=== PATIENT | female | born 1970 | race Caucasian/White ===

== ENCOUNTER 2020-01-03 16:08 | Outpatient (CLI) | payer OTHER, SELFPAY ==
--- NOTE | ~2020-01-03 | XR_ITS ---
EXAMINATION:XR_CERV2-3V_CR DATE: 01/03/2020 16:54 INDICATION: Headache and neck pain TECHNIQUE: AP, lateral, lateral swimmers and odontoid views of the cervical spine are provided. COMPARISON: None FINDINGS: Alignment is normal. The odontoid is intact. No fracture is identified. The vertebral body heights are normal. There is moderate loss of intervertebral disc space height at C6-7 and mild loss of intervertebral disc space height at C5-6. Small degenerative osteophytes project from the anterior endplates of multiple vertebral bodies. Prevertebral soft tissues are normal. IMPRESSION: 1. Mild to moderate lower cervical spondylosis without acute findings. Reviewed, dictated and finalized at location A.
== END 2020-01-03 16:09 | disposition home or self-care (01) ==
LOC: ANHIMG 16:19
PROVIDERS: PCP Physician Assistant; Visit Provider Physician Assistant
DX: M54.2 Cervicalgia (principal)
CPT/HCPCS: 72040

== ENCOUNTER 2020-04-11 14:28 | Emergency (ER) | payer OTHER, SELFPAY ==
[2020-04-11 14:37] VITALS: BP 123/67; PULSE 66; RESP 16; TEMP 36.6; O2SAT 99
--- NOTE | 2020-04-11 14:43 | ED.EYEPROB ---
HPI - Eye Problem General Chief complaint: Eye Problems Stated complaint: left eye redness/swollen Time Seen by Provider: 04/11/20 14:47 Source: patient and RN notes reviewed Mode of arrival: ambulatory Limitations: no limitations History of Present Illness HPI Narrative: 49-year-old female presents with concern for swelling, redness under her left eye. Reports she called her doctor yesterday who called her in a prescription for antibiotic eyedrops. Reports she started using those at 4:00 yesterday. Reports symptoms have not improved. Reports symptoms started on morning. She denies vision changes, drainage from the eye. Reports she has been using a cool washcloth. chief complaint: eye pain Related Data Home Medications Medication Instructions Recorded Confirmed bupropion HCl 300 mg PO DAILY 04/11/20 04/11/20 ciprofloxacin HCl See Rx Instructions .ROUTE .COMPLEX 04/11/20 04/11/20 duloxetine 60 mg PO DAILY 04/11/20 04/11/20 guanfacine 1 mg DAILY 04/11/20 04/11/20 levothyroxine [Euthyrox] 125 mcg DAILY 04/11/20 04/11/20 trazodone 150 mg HS 04/11/20 04/11/20 Allergies Allergy/AdvReac Type Severity Reaction Status Date / Time NSAIDS (Non-Steroidal AdvReac Mild Other Verified 04/11/20 14:34 Anti-Inflamma Review of Systems Review of Systems: Narrative: CONSTITUTIONAL: Denies malaise, chills, sweats, or fever. EYES: Denies visual changes, redness, or discharge. ENT: Denies rhinorrhea, congestion, sinus pain, otalgia or sore throat. SKIN: Reports red, swollen, tender area beneath the left eye MUSCULOSKELETAL: Denies myalgia. NEUROLOGIC: Denies headache. All systems reviewed & are unremarkable except as noted in HPI and below PMFSH Social History Social History Gender identity (if verbalized by the patient): Female Comments At time of signature, agree with nursing past medical, surgical, social and family history. There is no relevant family history pertinent to the presenting complaint Exam Narrative: Exam Narrative: GENERAL: Well-appearing, well-nourished, and in no acute distress. HEAD: Normocephalic, atraumatic. EYES: PERRLA, conjunctivae clear, sclera clear, and EOMI. No nystagmus. ENT: Nares clear. Mucous membranes moist. NECK: Supple. CHEST: No respiratory distress. Speaks in full sentences. HEART: Regular rate and rhythm. SKIN: Warm, dry. Skin beneath left eye erythematous, mildly edematous consistent with cellulitis, superficial NEURO: Alert and oriented x3. PSYCH: Normal mood and affect Course Course Emergency Course: Instructed patient to follow-up with brake reliner if symptoms have not improved by Monday. Patient is aware of diagnosis, understands and agrees to treatment plan. Anticipatory guidance given. Patient agrees to follow-up as directed and is aware of reasons to seek care at the emergency department. Portions of this record may have been created with voice recognition software Vital Signs Vital signs: Vital Signs Temperature 97.9 F 04/11/20 14:37 Pulse Rate 66 04/11/20 14:37 Respiratory Rate 16 04/11/20 14:37 Blood Pressure 123/67 04/11/20 14:37 Pulse Oximetry 99 04/11/20 14:37 Temperature 97.9 F 04/11/20 14:37 Pulse Rate 66 04/11/20 14:37 Respiratory Rate 16 04/11/20 14:37 Blood Pressure 123/67 04/11/20 14:37 Pulse Oximetry 99 04/11/20 14:37 Reviewed. MDM - Eye Problem MDM Narrative Medical decision making narrative: Consideration of the following conditions may be warranted for the presenting problem, they are not final diagnoses: Bacterial conjunctivitis, allergic conjunctivitis, viral conjunctivitis, foreign body, blepharitis, chalazion, hordeolum, corneal abrasion, cellulitis. Exam findings show no acute concerns or changes; patient is non-toxic appearing and is in no distress. Patient is appropriate for outpatient treatment and follow-up. Critical Care Time Critical Care Time Critical Care Time: No Discharge
== END 2020-04-11 15:02 | disposition home or self-care (01) ==
PROVIDERS: Emergency Provider Nurse Practitioner; PCP Physician Assistant
DX: L03.211 Cellulitis of face (principal); E03.9 Hypothyroidism, unspecified; F32.9 Major depressive disorder, single episode, unspecified
CPT/HCPCS: 99213; G0463

== ENCOUNTER 2021-02-18 10:36 | Outpatient (CLI) | payer BC, MEDICAID, SELFPAY ==
--- NOTE | 2021-02-18 | ECHO_ITS ---
Patient Info Name: Maru Lee Age: 50 years : 1970 Gender: Female Ht: 61 in Wt: 175 lbs BSA: 1.88 m2 HR: 80 bpm BP: 123 / 75 mmHg Heart Rhythm: Sinus Rhythm Technical Quality: Good Exam Date: 02/18/2021 11:14 AM Exam Location: [facility] Patient Status: Outpatient Admit Date: 02/18/2021 Staff Ordering Physician: Randall, Candi ROSALES Mirror Polisher: Juana Wan RDCS Attending Provider: RandallCandi Referring Physician: Randall SALAMANCA; Exam Type: CA echo doppler color flow Study Info Indications - CISNEROS Complete two-dimensional, color flow and Doppler transthoracic echocardiogram is performed. Summary 1. Complete two-dimensional, color flow and Doppler transthoracic echocardiogram is performed. 2. Normal left ventricular size and thickness. There is mild global hypokinesis present, estimated ejection fraction 50%. Diastolic dysfunction grade 2 is present. No segmental wall motion abnormalities. 3. No significant valve disease. 4. Left atrial chamber dimension is mildly enlarged. 5. Normal sinus rhythm. Left Ventricle Left ventricular chamber dimension is normal. Left ventricular systolic function is mildly reduced, estimated at 45-50%. There is no increased left ventricular wall thickness. Left ventricular septal wall motion is normal. The left ventricular diastolic function is grade II diastolic dysfunction. Right Ventricle Right ventricular chamber dimension is normal. Right ventricular systolic function is normal. Left Atria Left atrial chamber dimension is mildly enlarged. Right Atria Right atrial chamber dimension is normal. Aortic Valve The aortic valve is trileaflet. There is no aortic valve sclerosis. There is no aortic valve stenosis. There is no aortic valve regurgitation. Pulmonic Valve The pulmonic valve is normal. There is no pulmonic valve stenosis. There is no pulmonic regurgitation. Mitral Valve The mitral valve has normal leaflets. There is no mitral valve stenosis. There is trace mitral valve regurgitation. Tricuspid Valve The tricuspid valve leaflets are normal. There is no significant tricuspid valve stenosis. There is trace tricuspid valve regurgitation. No pulmonary hypertension, estimated pulmonary arterial systolic pressure is Empty. Pericardium/Pleural The pericardium appears normal. There is no pericardial effusion. Inferior Vena Cava Normal inferior vena cava with >50% collapse upon inspiration consistent with Empty right atrial pressure, Empty. Aorta The aortic root size at the sinus of Valsalva is normal. The prox ascending aorta size is normal. Left Ventricular Outflow Tract Name Value Normal LVOT 2D LVOT Diameter 2.0 cm LVOT Doppler LVOT Peak Gradient 4 mmHg LVOT Mean Gradient 2 mmHg LVOT VTI 23 cm LVOT VTI/AV VTI Ratio 0.7 LVOT Stroke Volume 68 ml LVOT CO 5.5 l/min LVOT CI
== END 2021-02-18 10:37 | disposition home or self-care (01) ==
PROVIDERS: PCP Physician Assistant; Visit Provider Physician Assistant
DX: R06.00 Dyspnea, unspecified (principal)
CPT/HCPCS: 93306

== ENCOUNTER 2021-02-22 15:28 | Emergency (ER) | payer BC, MEDICAID, SELFPAY ==
--- NOTE | ~2021-02-22 | XR_ITS ---
EXAMINATION: XR chest 1V portable EXAM DATE: 02/22/2021 21:32 INDICATION: Right upper chest pain started today. TECHNIQUE: Portable AP frontal chest x-ray was obtained. Comparison is made to prior examination from 03/16/2016. FINDINGS: The lungs are clear. There are no pleural effusions. The cardiomediastinal silhouette is within normal limits. There is no pneumothorax suspected. There are cholecystectomy clips. There ar e mild bony degenerative changes. IMPRESSION: No acute cardiopulmonary findings. Reviewed, dictated and finalized at location A.
[2021-02-22 16:04] VITALS: BP 114/53; PULSE 80; RESP 16; TEMP 36.9; O2SAT 100
[2021-02-22 16:29] LABS: Basophils Percent Auto 0.6 % (0.2-1.2); Eosinophils Absolute Auto 0.3 K/mm3 (0-0.3); Eosinophils Percent Auto 4.1 % (0-4.4); Hematocrit 36.8 % (37.0-47.0); Hemoglobin 12.2 g/dL (12.0-15.0); Immature Granulocyte Absolute 0.01 K/mm3 (0.00-0.031); Immature Granulocyte Percent A 0.1 % (0-0.5); Lymphocytes Absolute Auto 2.37 K/mm3 (0.9-3.2); Lymphocytes Percent Auto 34.3 % (18.3-44.2); Mean Corpuscular HGB Conc 33.2 g/dl (32-36); Mean Corpuscular Hemoglobin 30.3 pg (26-34); Mean Corpuscular Volume 91.5 fl (80-100); Mean Platelet Volume 9.7 fl (7.4-10.4); Monocytes Absolute Auto 0.5 K/mm3 (0.1-0.6); Monocytes Percent Auto 7.4 % (2.6-8.5); Neutrophils Absolute Auto 3.7 K/mm3 (1.3-6.7); Neutrophils Percent Auto 53.5 % (45.5-73.1); Platelet Count Result 246 k/mm3 (150-375); Red Blood Count 4.02 M/mm3 (4.2-5.4); Red Cell Distribution Width 13.6 % (11.5-14.5); White Blood Count 6.9 K/mm3 (4.5-10.0)
[2021-02-22 16:32] LABS: Add Urine Microscopic? YES; Appearance Urine Clear (Clear); Bilirubin Urine Negative (Negative); Blood Urine Negative (Negative); Color Urine Yellow (Yellow); Glucose Urine UA Negative (Negative); Ketones Urine Negative (Negative); Leukocyte Esterase Ur Negative LEU/UL (Negative); Mucus Urine Rare /lpf; Nitrate Urine Negative (Negative); Protein Urine Negative (Negative); RBC Urine 0-2 /hpf (0-2); Specific Grav Ur 1.024 (1.001-1.035); Squamous Epithelial Cell Urine Rare /hpf (Few); WBC Urine 0-3 /hpf
[2021-02-22 16:40] LABS: Alanine Aminotransferase 16 U/L (4-35); Albumin Level 4.2 g/dL (3.5-5.1); Alkaline Phosphatase 67 U/L (38-126); Anion Gap 9 mmol/L (8-16); Aspartate Amino Transferase 26 U/L (14-36); Bilirubin,Total 0.3 mg/dL (0.2-1.3); Blood Urea Nitrogen 9 mg/dL (7-17); Carbon Dioxide 21 mmol/L (22-30); Chloride 110 mmol/L (98-107); Estimated CRCL calculation 51 ml/min; Estimated Glomerular Filt Rate 52; Glucose 104 mg/dL (65-105); Lipase 104 U/L (23-300); Potassium 3.8 mmol/L (3.4-5.0); Sodium 140 mmol/L (137-145)
[2021-02-22 20:39] VITALS: BP 115/41; PULSE 74; O2SAT 100
--- NOTE | 2021-02-22 20:54 | ED.GENADULT ---
HPI - General Adult General Chief complaint: Unspecified Stated complaint: MULTIPLE C/O Time Seen by Provider: 02/22/21 20:31 Source: patient and RN notes reviewed Mode of arrival: ambulatory Limitations: no limitations History of Present Illness HPI narrative: Patient is 50 years old white female presents with multiple symptoms including intermittent headache, trouble sleeping, right upper quadrant sharp pain, diarrhea, general fatigue and weakness, going through divorce, gaining weight over the last few months, intermittent itching all over her body. Patient denies any fever, chills, nausea, vomiting, chest pain, back pain or rash. Related Data Home Medications Medication Instructions Recorded Confirmed bupropion HCl 300 mg PO DAILY 04/11/20 04/11/20 ciprofloxacin HCl See Rx Instructions .ROUTE .COMPLEX 04/11/20 04/11/20 duloxetine 60 mg PO DAILY 04/11/20 04/11/20 guanfacine 1 mg DAILY 04/11/20 04/11/20 levothyroxine [Euthyrox] 125 mcg DAILY 04/11/20 04/11/20 trazodone 150 mg HS 04/11/20 04/11/20 Allergies Allergy/AdvReac Type Severity Reaction Status Date / Time NSAIDS (Non-Steroidal AdvReac Mild Other Verified 04/11/20 14:34 Anti-Inflamma Review of Systems Review of Systems: Narrative: CONSTITUTIONAL: Denies fever, chills, or sweats. EYES: Denies visual changes, redness, or discharge. ENT: Denies rhinorrhea, congestion, sore throat, or otalgia. CARDIOVASCULAR: Denies chest pain, palpitations, or edema. RESPIRATORY: Denies cough or dyspnea. GASTROINTESTINAL: Denies abdominal pain, nausea, vomiting, or diarrhea. GENITOURINARY: Denies dysuria or hematuria. SKIN: Denies rash or itching. MUSCULOSKELETAL: Denies back pain, joint pain, or myalgia. NEUROLOGIC: Denies headache, numbness, or weakness. PSYCHIATRIC: Denies anxiety or depression. PMFSH Social History Social History Gender identity (if verbalized by the patient): Female Exam Narrative: Exam Narrative: General appearance: Well-developed, well-nourished, talkative, does not look in pain or distress Skin: Normal color Head: Normocephalic, nontraumatic Eyes: Clear conjunctiva ENT: Oropharynx normal, ears normal, nose normal Neck: Supple, nontender Chest and respiratory: Airway patent, no respiratory distress, no accessory muscle use Heart: Regular rate/rhythm Abdomen: Soft, nontender, no organomegaly, quiet bowel sounds Vascular: Normal peripheral pulses, normal capillary refill. Musculoskeletal: Normal range of motion, nontender back Neurologic: Alert and oriented ?3, [employer] is normal as tested, no gross motor deficit Course Course Emergency Course: Stable Vital Signs Vital signs: Vital Signs Temperature 36.9 C 02/22/21 16:04 Pulse Rate 80 02/22/21 16:04 Respiratory Rate 16 02/22/21 16:04 Blood Pressure 114/53 L 02/22/21 16:04 Pulse Oximetry 100 02/22/21 16:04 Temperature 36.9 C 02/22/21 16:04 Pulse Rate 74 02/22/21 20:39 Respiratory Rate 16 02/22/21 16:04 Blood Pressure 115/41 L 02/22/21 20:39 Pulse Oximetry 100 02/22/21 20:39 Medical Decision Making [facility] Narrative Medical decision making narrative: Anxiety, depression related symptoms is my concern. Labs, chest x-ray, UA ordered. Further plan to follow Differential Diagnosis Differential Diagnosis: Anxiety, depression, electrolyte imbalance, musculoskeletal pain, gastroenteritis, electrolyte imbalance Vital Signs Vital Signs: Vital Signs Temperature 36.9 C 02/22/21 16:04 Pulse Rate 80 02/22/21 16:04 Respiratory Rate 16 02/22/21 16:04 Blood Pressure 114/53 L 02/22/21 16:04 Pulse Oximetry 100 02/22/21 16:04
== END 2021-02-22 22:48 | disposition home or self-care (01) ==
PROVIDERS: Emergency Medicine; Emergency Provider Emergency Medicine; PCP Physician Assistant
DX: E86.0 Dehydration (principal); R53.1 Weakness; F41.9 Anxiety disorder, unspecified
CPT/HCPCS: 36415; 71045; 80053; 81001; 81025; 83690; 85025; 99283

== ENCOUNTER 2021-03-16 09:47 | Outpatient (CLI) | payer BC, MEDICAID, SELFPAY ==
--- NOTE | ~2021-03-16 | MM_ITS ---
EXAMINATION: MM screening cali BI w andrew HISTORY: Screening TECHNIQUE: Craniocaudal and mediolateral oblique 3-D tomosynthesis images were obtained and synthetic 2-D images were generated. CAD analysis was submitted and interpreted. COMPARISON: No prior mammogram is available for comparison at this institution. BREAST PARENCHYMAL COMPOSITION: There are scattered areas of fibroglandular density. FINDINGS: There is no evidence of suspicious mass, calcification, or architectural distortion to sugg est malignancy in either breast. There has been no suspicious interval change. IMPRESSION: 1. No mammographic evidence of malignancy. 2. Recommend routine screening mammography in one year. BI-RADS Category 1: Negative Reviewed, dictated and finalized at location A.
== END 2021-03-16 09:48 | disposition home or self-care (01) ==
LOC: ANHIMG 09:48
PROVIDERS: PCP Physician Assistant; Visit Provider Physician Assistant
DX: Z12.31 Encounter for screening mammogram for malignant neoplasm of breast (principal)
CPT/HCPCS: 77063; 77067

== ENCOUNTER 2021-04-29 10:42 | Outpatient (CLI) | payer BC, MEDICAID, SELFPAY ==
--- NOTE | ~2021-04-29 | NM_ITS ---
EXAMINATION: NM aníbal stress w perfusion DATE: 04/29/2021 12:58 INDICATION: Chest pain TECHNIQUE: Rest images were obtained following intravenous administration of 8.0 mCi Tc99m tetrofosmi n (Myoview). The patient was infused intravenously with Lexiscan (Regadenoson). Then, 26.8 mCi Tc99m tetrofosmin (Myoview) was administered intravenously, and stress images were obtained. Data was recon structed into short axis and horizontal and vertical long axis SPECT images. Gated SPECT images were also obtained. COMPARISON: None. FINDINGS: Small mild reversible perfusion defect consistent with ischemia at the apical and anteroapi aysha segments.. There is normal left ventricular chamber size, wall motion and ejection fraction. Le ft ventricular ejection fraction measures 61%. IMPRESSION: 1. Small mild reversible perfusion defect consistent with ischemia at the anterior and anteroseptal s egments. 2. Left ventricular ejection fraction measuring 61%. Reviewed, dictated and finalized at location A. IMPRESSION: 1. Small mild reversible perfusion defect consistent with ischemia at the anter ior and anteroseptal segments. 2. Left ventricular ejection fraction measuring 61%.
--- NOTE | 2021-04-29 10:27 | EST_ITS ---
Patient Info Name: Maru Lee Age: 50 years : 1970 Gender: Female Ht: 61 in Wt: 170 lbs BSA: 1.85 m2 Exam Date: 04/29/2021 11:47 AM Exam Location: [facility] Stress Patient Status: Outpatient Admit Date: 04/29/2021 Staff Ordering Physician: Tom Mireles DO Attending Provider: Tom Mireles DO Exercise Technologist: Sneha Daniel RDCS Exercise Physician: Tom Mireles DO Exam Type: CA stress aníbal w NM Study Info Indications R07.9 - Chest pain, unspecified A regadenoson stress test was performed. Summary 1. 1. Negative lexiscan stress test for ischemic ST changes by ECG criteria. 2. 2. Stable hemodynamics throughout the test. 3. 3. Nuclear scan to follow and will be reported separately. Please correlate with it. 4. 4. Patient informed of the above results. Protocol: Lexiscan Stress ECG Details Stage: REST Duration (min): 1 min : 27 sec HR (bpm): 71 SBP (mmHg): 100 DBP (mmHg): 73 Stage: REST Duration (min): 4 min : 10 sec HR (bpm): 69 SBP (mmHg): 100 DBP (mmHg): 73 Stage: STAGE 1 Duration (min): 1 min : 0 sec HR (bpm): 85 SBP (mmHg): 114 DBP (mmHg): 83 Stage: RECOVERY Duration (min): 1 min : 0 sec HR (bpm): 91 SBP (mmHg): 111 DBP (mmHg): 75 Stage: RECOVERY Duration (min): 2 min : 0 sec HR (bpm): 89 SBP (mmHg): 111 DBP (mmHg): 75 Stage: RECOVERY Duration (min): 3 min : 0 sec HR (bpm): 96 SBP (mmHg): 109 DBP (mmHg): 71 Stage: RECOVERY Duration (min): 3 min : 11 sec HR (bpm): 92 SBP (mmHg): 109 DBP (mmHg): 71 Rest HR: 69 bpm Peak HR: 96 bpm Rest Sys BP: 100 mmHg Peak Sys BP: 114 mmHg Max Pred HR: 168 bpm % Max Pred HR: 57 % Target HR: 143 bpm Max RPP: 10,944 bpm*mmHg Termination Reason: Completed protocol Cardiac Symptoms: SOB, Headache, stomach discomfort Total Time: 1 min : 0 sec Rest Leon BP: 73 mmHg Peak Leon BP: 83 mmHg Total Dose: 0.4 mg Resting ECG Sinus rhythm. Stress ECG No ST changes. Arrhythmias None. Report Signatures
== END 2021-04-29 10:43 | disposition home or self-care (01) ==
PROVIDERS: PCP Physician Assistant; Visit Provider Internal Medicine Cardiovascular Disease
DX: R07.9 Chest pain, unspecified (principal)
CPT/HCPCS: 78452; 93017; A9502; J2785

== ENCOUNTER 2021-05-07 09:35 | Outpatient (CLI) | payer BC, MEDICAID, SELFPAY ==
--- NOTE | ~2021-05-07 | MR_ITS ---
EXAMINATION: MR cervical spine wo con EXAM DATE: 05/07/2021 10:30 INDICATION: Cervicalgia, neck pain, bilateral shoulder pain. TECHNIQUE: Multi-sequential, multiplanar MR images of the cervical spine were obtained without contra st. Axial T2, axial T2 MERGE sequence. Sagittal T1, T2, T2 fat saturation images also obtained. Th ere is no prior study for comparison. FINDINGS: There is moderate disc disease at C5-6 and 6-7. The vertebral bodies are aligned in the AP dimension. The spinal cord signal intensity and intrinsic morphology is normal. Cervicomedullary yovana ction is normal in appearance. There are no suspicious marrow signal abnormalities. Paraspinal soft t issue is unremarkable. Level by level evaluation: C2-C3: Disc does not extend beyond the endplate margin. Uncovertebral joint arthropathy: None. Facet joint arthropathy: Mild bilateral. Neural foraminal stenosis: No stenosis. Central canal stenosis: No stenosis. C3-C4: There is a mild diffuse disc bulge. Uncovertebral joint arthropathy: Moderate right, mild to moderate left. Facet joint arthropathy: Mild to moderate bilateral. Neural foraminal stenosis: Moderate right, mild to moderate left. Central canal stenosis: No stenosis. C4-C5: Disc does not extend beyond the endplate margin. Uncovertebral joint arthropathy: Moderate right, mild to moderate left. Facet joint arthropathy: Mild to moderate bilateral. Neural foraminal stenosis: Mild bilateral. Central canal stenosis: No stenosis. C5-C6: There is a mild diffuse disc bulge asymmetric to the right Uncovertebral joint arthropathy: Moderate to severe right, moderate left. Facet joint arthropathy: Mild bilateral. Neural foraminal stenosis: Moderate bilateral. Central canal stenosis: Mild. C6-C7: There is a mild diffuse disc bulge. Uncovertebral joint arthropathy: Mild to moderate bilateral. Facet joint arthropathy: Mild to moderate bilateral. Neural foraminal stenosis: Mild to moderate bilateral. Central canal stenosis: Mild. C7-T1: Disc does not extend beyond the endplate margin. Uncovertebral joint arthropathy: Mild bilateral. Facet joint arthropathy: Mild bilateral. Neural foraminal stenosis: No stenosis. Central canal stenosis: No stenosis. IMPRESSION: 1. Moderate lower cervical predominant spondylosis. Reviewed, dictated and finalized at location B.
== END 2021-05-07 09:36 ==
PROVIDERS: PCP Physician Assistant; Visit Provider Nurse Practitioner Family
DX: M47.892 Other spondylosis, cervical region (principal)
CPT/HCPCS: 72141

== ENCOUNTER 2021-08-20 02:54 | Day surgery (SDC) | payer BC, MEDICAID, SELFPAY ==
[2021-08-19 14:07] VITALS: BMI 32.1
[2021-08-20] VITALS (16 sets, daily range): BP systolic 92–115; BP diastolic 44–70; PULSE 68–83; RESP 14–24; TEMP 36.6; O2SAT 94–100; BMI 31.4
[2021-08-20 08:11] LABS: Basophils Absolute Auto 0.1 K/mm3 (0.0-0.1); Basophils Percent Auto 1.3 % (0.2-1.2); Eosinophils Absolute Auto 0.2 K/mm3 (0-0.3); Eosinophils Percent Auto 3.4 % (0-4.4); Hematocrit 42.8 % (37.0-47.0); Immature Granulocyte Absolute 0.03 K/mm3 (0.00-0.031); Immature Granulocyte Percent A 0.5 % (0-0.5); Lymphocytes Absolute Auto 1.21 K/mm3 (0.9-3.2); Lymphocytes Percent Auto 21.6 % (18.3-44.2); Mean Corpuscular HGB Conc 32.7 g/dl (32-36); Mean Corpuscular Volume 94.7 fl (80-100); Mean Platelet Volume 9.5 fl (7.4-10.4); Monocytes Absolute Auto 0.5 K/mm3 (0.1-0.6); Monocytes Percent Auto 8.2 % (2.6-8.5); Neutrophils Absolute Auto 3.6 K/mm3 (1.3-6.7); Platelet Count Result 271 k/mm3 (150-375); Red Blood Count 4.52 M/mm3 (4.2-5.4); Red Cell Distribution Width 12.6 % (11.5-14.5); White Blood Count 5.6 K/mm3 (4.5-10.0)
[2021-08-20 08:21] LABS: INR 0.9; Prothrombin Time 12.1 Seconds (11.1-14.7)
[2021-08-20 08:27] LABS: Anion Gap 7 mmol/L (8-16); Blood Urea Nitrogen 9 mg/dL (7-17); Calcium 9.5 mg/dL (8.4-10.2); Carbon Dioxide 26 mmol/L (22-30); Chloride 109 mmol/L (98-107); Estimated CRCL calculation 39 ml/min; Estimated Glomerular Filt Rate 39; Glucose 102 mg/dL (65-110); Potassium 3.9 mmol/L (3.4-5.0); Sodium 142 mmol/L (137-145)
--- NOTE | 2021-08-20 09:33 | WPDMODSED ---
Moderate Sedation Note-Pt Data Patient Data Diagnosis: Anomalous right coronary artery, catheterization as part of surgical consultation Present Complaint: Dizziness/lightheadedness, shortness of breath Procedure to be performed/Plan: Left heart catheterization Allergies Allergy/AdvReac Type Severity Reaction Status Date / Time NSAIDS (Non-Steroidal AdvReac Mild Other Verified 08/19/21 14:02 Anti-Inflamma Home Medications Medication Instructions Recorded Confirmed Type levothyroxine [Euthyrox] 125 mcg DAILY 04/11/20 08/19/21 History trazodone 150 mg HS 04/11/20 08/19/21 History bupropion HCl 300 mg 24 hr tablet, 450 mg PO DAILY tablet 06/09/21 08/19/21 History extended release duloxetine 60 mg capsule,delayed 80 mg PO DAILY cap 06/09/21 08/19/21 History release alprazolam 0.25 mg PO ONCE 08/19/21 08/19/21 History calcium carbonate-vitamin D2 1 tablet PO DAILY 08/19/21 08/19/21 History [Calcium + Vitamin D] topiramate [Topamax] 100 mg PO BID 08/19/21 08/19/21 History Current Medications: Active Medications Sodium Chloride (Normal Saline Iv) 500 mls @ 100 mls/hr IV CONT .Q5H [facility] Sedation/Anesthesia: No previous sedation/anesthesia problems (including family history). [facility] Social History Social History Smoking status: Never smoker Living arrangements: with family Gender identity (if verbalized by the patient): Female Mod Sed Physical Exam Physical Exam Pre Procedural Exam: Normal: Neck, Throat, Airway, Lungs, Heart Size, Heart Rate, Heart Rhythm, Neuro Exam and Extremities and Variation: Appearance (Overweight lady pleasant cooperative no distress) Hours since solid foods: 12 Hours since liquid intake: 12 Mallampati Classification: class II Internal Medicine - PN: Obj Da Vital Signs Vital Signs: Vital Signs - 24 hr 08/20/21 08:15 Temperature 36.6 C Pulse Rate 72 Respiratory Rate 16 Blood Pressure 115/60 Pulse Oximetry 97 Meds/Results Medications: Active Medications Generic Name Dose Route Start Last Admin Trade Name Freq PRN Reason Stop Dose Admin Sodium Chloride 500 mls @ 100 mls/hr 08/20/21 07:00 Normal Saline Iv IV CONT .Q5H [facility] Labs CBC & Chem 7: 08/20/21 07:50 08/20/21 07:50 Labs: Laboratory Results - last 24 hr 08/20/21 08/20/21 08/20/21 07:50 07:50 07:50 WBC 5.6 RBC 4.52 Hgb 14.0 Hct 42.8 MCV 94.7 MCH 31.0 MCHC 32.7 RDW 12.6 Plt Count 271 MPV 9.5 Immature Gran % (Auto) 0.5 Neut % (Auto) 65.0 Lymph % (Auto) 21.6 [place] % (Auto) 8.2 Eos % (Auto) 3.4 Baso % (Auto) 1.3 H Lymph # (Auto) 1.21 [place] # (Auto) 0.5 Eos # (Auto) 0.2 Baso # (Auto) 0.1 Abs Immat Gran (auto) 0.03 Absolute Neuts (auto) 3.6 Absolute Nucleated RBC 0.0 Nucleated RBC % 0.0 PT 12.1 INR 0.9 Sodium 142 Potassium 3.9 Chloride 109 H Carbon Dioxide 26 Anion Gap 7 L BUN 9 Creatinine 1.40 H Estim Creat Clear Calc 39 Estimated GFR 39 L Glucose 102 Calcium 9.5 ASA Classification/Sedation ASA Classification/Sedation ASA Class: II Emergent: No Risks: Risks, benefits and alternatives explained and patient/family accepted plan for sedation. Patient re-evaluated immediately prior to sedation.
--- NOTE | 2021-08-20 10:24 | P.PCNCC_ITS ---
Cardiac Cath Procedure Note Date of procedure:: 08/20/21 Performing physician:: Martínez Ely MD Indication:: Anomalous coronary circulation, angiography recommended by Cardiothoracic senior science consultant Brief clinical history:: This is a 51-year-old woman with multiple symptoms that began earlier last year following coronavirus and cardiology evaluation was requested. She symptoms include lightheadedness and shortness of breath. 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 Procedure Procedure performed:: Left ventriculogram Coronary angiogram Sedation/Medication given:: Fentanyl 50 mg Versed 2 mg Case start time 9:43 a.m. Case end time 10:18 a.m. Sedation provided by Buck Shultz RN trained observer Access site:: Left femoral artery Estimated blood loss:: 15-20 cc Procedure note:: Patient was brought to the cardiac catheterization lab where the femoral triangles were prepared and draped in the usual fashion. I gave 1% lidocaine infiltrated in the right groin and attempted to puncture the right femoral artery. The pulse was faint and I was unable to obtain an arterial puncture after a number of attempts. For this reason I administered some lidocaine in the left femoral triangle and punctured the left femoral artery. A 5 Afghan vascular sheath was then placed in the left heart catheterization was carried out. I used a 5 Afghan angled pigtail catheter to measure left-sided he modynamics and to inject LV g in the our AO projection. Following this a standard 5 Afghan FL4 catheter was used to engage and inject the left coronary artery and after this the anomalous right coronary artery was injected using a 5 Afghan AL1 catheter. The cineangiograms were reviewed and the case was then terminated the patient was taken to the holding area for recovery and manual sheath removal. There were no apparent procedural complications. Findings:: Hemodynamics: Central aortic pressure was 126/62 left ventricle 1 30 over 0 end-diastolic pressure 14 there is no gradient across the aortic valve. Left ventricle: The LV is of normal size all segments contract appropriately the global ejection fraction I would visually estimated to be 60-65%. The left main coronary artery is medium in caliber and free of disease The left anterior descending is a medium caliber artery extending down to around the apex. The LAD and its branches are angiographically free of disease. Circumflex is a medium to larger caliber vessel which is dominant to the posterior circulation. The circumflex is a is marginal and posterior branches are angiographically free of disease. The right coronary artery is a small caliber vessel anomalous the arising adjacent to the left coronary from the left coronary cusp. It gives rise to RV branch is but is non dominant and angiographically normal Conclusion:: 1. Left coronary dominant circulation with no angiographic evidence of coronary disease 2. 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 Normal left ventricular systolic function Martínez Ely MD FACC
[2021-08-20] MEDS: fentaNYL CITRATE INJ (*CRX) 100 MCG/2 ML VIAL 25 MCG IV PUSH (10:42)
--- NOTE | 2021-08-20 14:26 | PC.NURSE ---
Patient at 30 degrees eating tray and had episode where unable to swallow chicken. This RN entered room with Venita TORREZ and found patient attempting to cough chicken up without success. This RN held appropriate pressure to procedure site at left groin, raised HOB to facilitate patient maintaining airway. After 45 seconds patient able to swallow piece of chicken. Patient reports has occasional swallowing difficulty at home as well as currently. Patient states was also eating ice cream with brownies and chips mixed in. Educations provided to chew thoroughly before swallowing and drinking fluids, using call villa. Patient's HOB returned to 30 degrees. Patient finished meal without any other issues.
--- NOTE | 2021-08-20 16:30 | SUR.PHASEII ---
REVIEWED ALL DISCHARGE INSTRUCTIONS WITH PT. QUESTIONS ANSWERED. VOICED UNDERSTANDING OF ALL INSTRUCTIONS. DISCHARGE PACKET GIVEN ALONG WITH PROCEDURE DISC TO TAKE TO DR. YANES. Irena. GROIN SITE REMAINS SOFT, NONTENDER. NO BLEEDING OR HEMATOMA NOTED. DRESSING C/D/I. L. PEDAL PULSE 2+; NO CHANGE. DISCHARGED HOME, OUT VIA WC, WITH ALL PERSONAL BELONGINGS AND DISCHARGE PACKET TO 'S WAITING CAR. VOICES NO C/O. NO DISTRESS NOTED.
== END 2021-08-20 16:30 | disposition home or self-care (01) ==
PROVIDERS: PCP Physician Assistant; Visit Provider Specialist
PROC: 4A023N7 Measurement of Cardiac Sampling and Pressure, Left Heart, Percutaneous Approach (ICD-10-PCS; CPT 93452; principal; 2021-08-20 09:00)
DX: R93.1 Abnormal findings on diagnostic imaging of heart and coronary circulation (principal); Z86.16 Personal history of COVID-19; R53.83 Other fatigue; R51.9 Headache, unspecified; R42 Dizziness and giddiness; M54.50 Low back pain, unspecified; M54.2 Cervicalgia; R10.9 Unspecified abdominal pain; R07.89 Other chest pain; E03.9 Hypothyroidism, unspecified; I51.89 Other ill-defined heart diseases; R06.00 Dyspnea, unspecified
CPT/HCPCS: 36415; 80048; 85025; 85610; 93458; C1887; C1894; J1644; J2250; J3010; J7040

== ENCOUNTER 2021-09-07 15:33 | Outpatient (CLI) | payer BC, MEDICAID, SELFPAY ==
--- NOTE | ~2021-09-07 | CT_ITS ---
EXAMINATION: CT brain wo con DATE: 09/07/2021 16:01 INDICATION: Constant headache for one year at vertex of skull. Tendinitis. TECHNIQUE: Computed tomography (CT) of the head was performed without intravenous contrast. The mA wa s adjusted according to patient size. Iterative reconstruction technique was employed. Exam dose: 60 5.33 mGy-cm total exam DLP. COMPARISON: None FINDINGS: No intracranial mass lesion or hemorrhage or cerebrovascular accident. No midline shift or mass effect effect. Normal ventricular size. Normal king-white matter differentiation. Mild bilateral carotid siphon internal carotid artery calcification. No subdural or epidural hematoma is detected. The orbital contents are unremarkable. No fracture or bone destruction of the cranial vault. There is minimal soft tissue thickening at the right frontal ethmoid area. The included paranasal sin uses and the mastoid air cells are otherwise normally developed and aerated. No fracture or bone destruction of the cranial vault. IMPRESSION: Mild cerebral atherosclerosis; otherwise no significant intracranial abnormality Reviewed, dictated and finalized at [facility]. Reviewed, dictated and finalized at location A. ITY BILL COMPLAINTS INVESTIGATOR IMPRESSION: Mild cerebral atherosclerosis; otherwise no significant intracrani al abnormality
== END 2021-09-07 15:34 | disposition home or self-care (01) ==
LOC: ANHIMG 15:39
PROVIDERS: PCP Physician Assistant; Visit Provider Physician Assistant
DX: R51.9 Headache, unspecified (principal); I67.2 Cerebral atherosclerosis
CPT/HCPCS: 70450

== ENCOUNTER 2021-09-20 14:14 | Outpatient (CLI) | payer BC, MEDICAID, SELFPAY ==
--- NOTE | ~2021-09-20 | US_ITS ---
EXAMINATION: US thyroid DATE: 09/20/2021 15:13 INDICATION: Goiter. TECHNIQUE: Multiple ultrasound images of the thyroid were obtained. COMPARISON: Thyroid ultrasound 07/04/2006 FINDINGS: The right thyroid lobe measures 2.1 x 0.7 x 0.8 cm. The left thyroid lobe measures 2.1 x 0.6 x 0.4 c m. The thyroid demonstrates heterogeneous echogenicity. Vascularity is normal. No discrete nodule. IMPRESSION: 1. Stable small, heterogeneous thyroid, likely benign. Reviewed, dictated and finalized at location [facility]. ON CLASSER
== END 2021-09-20 14:15 | disposition home or self-care (01) ==
LOC: ANHIMG 14:15
PROVIDERS: PCP Physician Assistant; Visit Provider Internal Medicine Endocrinology, Diabetes & Metabolism
DX: E04.9 Nontoxic goiter, unspecified (principal)
CPT/HCPCS: 76536

== ENCOUNTER 2022-05-08 15:16 | Emergency (ER) | payer BC, MEDICAID, SELFPAY ==
[2022-05-08 15:19] VITALS: BP 125/57; PULSE 92; RESP 16; TEMP 36.3; O2SAT 100
--- NOTE | 2022-05-08 16:17 | ED.EYEPROB ---
HPI - Eye Problem General Chief complaint: Eye Problems Stated complaint: left eye pain and burning Time Seen by Provider: 05/08/22 15:30 History of Present Illness HPI Narrative: Patient is a 51-year-old female here for evaluation of left eye irritation for the past week and a half. Patient states that the eye has been itchy, red, and irritated for the past week, and now she is noticing pain in her right eye. Denies known foreign body in eye. No direct trauma to globe. Pain has not been severe enough to awaken patient from sleep. Denies contact lens wearing. No decreased vision; states she has chronically poor vision due to cataracts . Related Data Home Medications Medication Instructions Recorded Confirmed trazodone 150 mg tablet 150 mg HS 04/11/20 03/17/22 bupropion HCl 300 mg 24 hr tablet, 450 mg PO DAILY 06/09/21 03/17/22 extended release duloxetine 60 mg capsule,delayed 80 mg PO DAILY 06/09/21 03/17/22 release calcium carb-ergocalciferol (vit 1 tablet PO DAILY 08/19/21 03/17/22 D2) 600 mg calcium-200 unit tablet topiramate 100 mg tablet (Topamax) 100 mg PO BID 08/19/21 03/17/22 linaclotide 72 mcg capsule 72 mcg PO DAILY 03/10/22 03/17/22 (Linzess) Allergies Allergy/AdvReac Type Severity Reaction Status Date / Time NSAIDS (Non-Steroidal AdvReac Mild Other Verified 03/17/22 10:25 Anti-Inflamma Review of Systems Review of Systems: Gen.: Denies fevers or chills Eyes: Reports eye pain. Denies visual change ENT: Denies congestion Respiratory: Denies shortness of breath or cough CV: Denies chest pain or palpitations GI: Denies abdominal pain nausea, emesis or diarrhea denies burning, urgency, frequency or hematuria Musculoskeletal: Denies back pain or muscle pain Neuro: Denies numbness, tingling, weakness or focal weakness Skin: Denies rash Except as documented, all other systems reviewed and negative [facility] Past Medical History Medical History Anxiety CAD (coronary artery disease) CHF (congestive heart failure), NYHA class I GERD (gastroesophageal reflux disease) Headache, migraine Heart disease IBS (irritable bowel syndrome) Thyroid disease Surgical History Surgical History History of open heart surgery Family History Family History Other Depression Diabetes mellitus Heart disease Social History Social History Smoking status: Never smoker Gender identity (if verbalized by the patient): Female Exam Narrative: APPEARANCE: Well appearing, no pain in distress, well-nourished. Head: Normocephalic and atraumatic. EYES: 2 mm pinpoint white spot just inferior to her left pupil. Lights up with fluorescein dye. No FB/abrasion noted. Siedel's sign negative. conjunctivae slightly injected on the left. EOMI. Right eye fluorescein exam unremarkable. NOSE: No nasal drainage EARS: External ear normal in appearance THROAT: Oropharynx is clear. Mucous membranes are moist. NECK: Supple. No adenopathy, no masses. RESPIRATORY: Airway patent, respirations nonlabored. Clear to auscultation bilaterally, no rales, rhonchi, wheezing. CARDIOVASCULAR: Regular rate and rhythm without murmurs, rubs, or gallops. ABDOMINAL: Normoactive bowel sounds. Soft, nontender, nondistended. No rebound tenderness or guarding. MUSCULOSKELETAL: Extremities are warm and well-perfused. Moves all extremities well. No edema. NEURO: Normal speech. No focal neurologic deficits. SKIN: vertical surgical scar in center of chest. PSYCHIATRIC: Normal affect/mood. Course Consultations Consultation #1: spoke with Dr. Anguiano at [facility] ophthalmology, agrees with plan for close f/u, will see in office tomorrow Date: 05/08/22 Time: 17:35 Vital Signs Vital signs: Vital Signs Temperature
== END 2022-05-08 17:43 | disposition home or self-care (01) ==
PROVIDERS: Emergency Provider Emergency Medicine; PCP Physician Assistant
DX: H10.89 Other conjunctivitis (principal); S05.02XA Injury of conjunctiva and corneal abrasion without foreign body, left eye, initial encounter; I25.10 Atherosclerotic heart disease of native coronary artery without angina pectoris; I50.9 Heart failure, unspecified; K21.9 Gastro-esophageal reflux disease without esophagitis; K58.9 Irritable bowel syndrome, unspecified; E07.9 Disorder of thyroid, unspecified; F41.9 Anxiety disorder, unspecified; X58.XXXA Exposure to other specified factors, initial encounter
CPT/HCPCS: 99283

== ENCOUNTER 2022-06-13 09:47 | Outpatient (CLI) | payer BC, MEDICAID, SELFPAY ==
--- NOTE | ~2022-06-13 | XR_ITS ---
EXAM: XR thoracic spine 3V DATE: 06/13/2022 10:18 HISTORY: THORACIC BACK PAIN, MID BACK PAIN, NO INJURY . COMPARISON: 02 has been a fly on the wall.. FINDINGS: Cholecystectomy clips. Median sternotomy wires. The second wire counting superior to inferi or is fractured. Vertebral body alignment intact. Vertebral body heights preserved. Multilevel disc s pace narrowing and marginal osteophytosis. No traumatic malalignment or fracture. Visualized lung par enchyma is clear. 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 Reviewed, dictated and finalized at location [facility]. 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
--- NOTE | ~2022-06-13 | XR_ITS ---
EXAMINATION: XR chest 2V DATE: 06/13/2022 10:18 INDICATION: Chest pain TECHNIQUE: PA and lateral views of the chest were obtained. COMPARISON: Chest radiograph dated 02/22/2021 FINDINGS: The lungs remain clear with no focal airspace opacities, pulmonary edema, pleural effusion or pneumot horax. The cardiomediastinal silhouette is normal. New median sternotomy wires. Cholecystectomy clips in the right upper quadrant. Moderate thoracolumbar spondylosis. IMPRESSION: 1. No acute cardiopulmonary disease. Reviewed, dictated and finalized at location B.
== END 2022-06-13 09:48 | disposition home or self-care (01) ==
PROVIDERS: PCP Physician Assistant; Visit Provider Internal Medicine Cardiovascular Disease
DX: R07.9 Chest pain, unspecified (principal); M51.34 Other intervertebral disc degeneration, thoracic region
CPT/HCPCS: 71046; 72072

== ENCOUNTER 2022-07-06 08:30 | Outpatient (RCR) | payer BC, MEDICAID, SELFPAY ==
[2022-05-17 08:55] VITALS: PULSE 90
== END 2022-07-14 17:43 | disposition home or self-care (01) ==
LOC: ANHCPREHAB 08:30
PROVIDERS: PCP Physician Assistant; Visit Provider Internal Medicine Cardiovascular Disease
DX: Z95.1 Presence of aortocoronary bypass graft (principal)
CPT/HCPCS: 93798

== ENCOUNTER 2022-07-06 10:02 | Outpatient (CLI) | payer BC, MEDICAID, SELFPAY ==
--- NOTE | ~2022-07-06 | XR_ITS ---
EXAMINATION: XR shoulder RT min 2V DATE: 07/06/2022 10:31 INDICATION: Right shoulder pain. TECHNIQUE: 4 views of right shoulder were obtained. COMPARISON: None. FINDINGS: Bone alignment is normal. No fracture. There is mild osteoarthritis of glenohumeral joint a nd moderate osteoarthritis of the acromioclavicular joint. There is calcific tendinitis of the rotato r cuff. Median sternotomy wires are noted. IMPRESSION: 1. Polyarticular osteoarthritis. 2. Calcific tendinitis of the rotator cuff. Reviewed, dictated and finalized at location [facility]. [employer]
== END 2022-07-06 10:03 | disposition home or self-care (01) ==
PROVIDERS: PCP Physician Assistant; Visit Provider Physician Assistant
DX: M19.011 Primary osteoarthritis, right shoulder (principal); M75.31 Calcific tendinitis of right shoulder
CPT/HCPCS: 73030

== ENCOUNTER 2022-09-03 08:37 | Outpatient (CLI) | payer BC, MEDICAID, SELFPAY ==
--- NOTE | ~2022-09-03 | MR_ITS ---
EXAMINATION: MR shoulder RT wo con DATE: 09/03/2022 09:41 INDICATION: anterior right shoulder pain x6mos, rotator cuff disorder, . TECHNIQUE: Magnetic resonance imaging (MRI) of the right shoulder was performed without intravenous c ontrast. Sequences included axial PD-weighted FS FSE, coronal oblique PD-weighted FS FSE and T2-weigh tana FS FSE, and sagittal oblique T2-weighted FS FSE and T1-weighted FSE. COMPARISON: X-ray right shoulder 07/06/2022. FINDINGS: Coracoacromial arch: Borderline subacromial narrowing. No significant downsloping of the type I/II acromion. Moderate AC j oint hypertrophy with mild inferior osteophytosis and acromial tip enthesopathy. Rotator cuff: Minimal focal high signal within the critical zone of the supraspinatus tendon and in the distal infr aspinatus tendon at the footplate. Teres minor and subscapularis are intact. Focal low signal in the distal supraspinatus tendon. Biceps tendon and glenoid labrum: Intact. Thickening and redundancy of the inferior capsule. Fluid: Small volume glenohumeral fluid. Moderate volume subacromial subdeltoid fluid. Bones/cartilage: Severe thinning of glenohumeral cartilage. IMPRESSION: 1. Mild distal rotator cuff tendinopathy and calcific tendinitis, with moderate subacromial subdeltoi d bursitis and mild osseous outlet compromise. 2. Inferior capsular thickening may reflect a component of adhesive capsulitis versus chronic change from remote capsular injury. Reviewed, dictated and finalized at location [facility]. WARE ENGINEER INTERN IMPRESSION: 1. Mild distal rotator cuff tendinopathy and calcific tendinitis, with moderate subacromial subdeltoid bursitis and mild osseous outlet compromise. 2. Inferior capsular thickening may reflect a component of adhesive capsulitis versus chronic change from remote capsular injury.
== END 2022-09-03 08:38 ==
LOC: MICIMG 08:39
PROVIDERS: PCP Orthopaedic Surgery; Visit Provider Orthopaedic Surgery
DX: M25.511 Pain in right shoulder (principal); G89.29 Other chronic pain; M75.31 Calcific tendinitis of right shoulder
CPT/HCPCS: 73221

== ENCOUNTER 2022-11-02 14:16 | Outpatient (CLI) | payer BC, MEDICAID, SELFPAY ==
--- NOTE | 2022-11-02 14:28 | ECHO_ITS ---
Patient Info Name: Maru Lee Age: 52 years : 1970 Gender: Female Ht: 61 in Wt: 160 lbs BSA: 1.79 m2 HR: 88 bpm BP: 94 / 69 mmHg Technical Quality: Fair Exam Date: 11/02/2022 2:33 PM Exam Location: [facility] Patient Status: Outpatient Admit Date: 11/02/2022 Staff Ordering Physician: Tom Mireles DO Rose Grading Supervisor: Juana Wan RDCS Attending Provider: Tom Mireles DO Referring Physician: Chi CROSS; Exam Type: CA echo doppler color flow Study Info Indications - congenital heart disease anomalous rca Complete two-dimensional, color flow and Doppler transthoracic echocardiogram is performed. Summary 1. Complete two-dimensional, color flow and Doppler transthoracic echocardiogram is performed. 2. Left ventricular chamber dimension is normal. 3. Left ventricular systolic function is normal, estimated at 60-65%. 4. The left ventricular diastolic function is grade I diastolic dysfunction. 5. E/e' 11 is mildly elevated. 6. Global longitudinal strain is normal at -17.1%. 7. There is mild to moderate mitral valve regurgitation. 8. There is trace tricuspid valve regurgitation. 9. No pulmonary hypertension, estimated pulmonary arterial systolic pressure is 20 mmHg. 10. There is trace pulmonic regurgitation. Left Ventricle E/e' 11 is mildly elevated. Global longitudinal strain is normal at -17.1%. Left ventricular chamber dimension is normal. Left ventricular systolic function is normal, estimated at 60-65%. The left ventricular diastolic function is grade I diastolic dysfunction. Right Ventricle Right ventricular chamber dimension is normal. Right ventricular systolic function is normal. Left Atria Left atrial chamber dimension is normal. Right Atria Right atrial chamber dimension is normal. Aortic Valve The aortic valve is trileaflet. There is no aortic valve stenosis. There is no aortic valve regurgitation. Pulmonic Valve There is trace pulmonic regurgitation. Mitral Valve There is no mitral valve stenosis. There is mild to moderate mitral valve regurgitation. Tricuspid Valve There is trace tricuspid valve regurgitation. No pulmonary hypertension, estimated pulmonary arterial systolic pressure is 20 mmHg. Pericardium/Pleural There is no pericardial effusion. Inferior Vena Cava Normal inferior vena cava with >50% collapse upon inspiration consistent with normal right atrial pressure, 5 mmHg. Aorta The aortic root size at the sinus of Valsalva is normal. Left Ventricular Outflow Tract Name Value Normal LVOT 2D LVOT Diameter 2.0 cm LVOT Doppler LVOT Peak Gradient 4 mmHg LVOT Mean Gradient 3 mmHg LVOT VTI 19 cm LVOT VTI/AV VTI Ratio 0.7 LVOT Stroke Volume 58 ml LVOT CO 13.7 l/min LVOT CI 7.6 l/min/m2 Pulmonic Valve Name Value
== END 2022-11-02 14:17 | disposition home or self-care (01) ==
LOC: ANHCARD 14:16
PROVIDERS: PCP Orthopaedic Surgery; Visit Provider Internal Medicine Cardiovascular Disease
DX: I51.9 Heart disease, unspecified (principal); I34.0 Nonrheumatic mitral (valve) insufficiency
CPT/HCPCS: 93306

== ENCOUNTER 2022-12-14 10:48 | Outpatient (CLI) | payer BC, MEDICAID, SELFPAY ==
--- NOTE | ~2022-12-14 | US_ITS ---
Limited Abdominal Sonogram: Real-time sonographic imaging of the right upper quadrant was performed. Clinical History: Abdominal pain Findings: The liver appears normal with no evidence of mass lesion or bile duct dilatation. Main por vega vein demonstrates normal direction of flow. The gallbladder is absent, consistent with prior chol ecystectomy. The common bile duct is not clearly visualized. The pancreas, aorta, and IVC are obscur ed by bowel gas shadowing. Impression: Status post cholecystectomy. Nonvisualization of the pancreas and common bile duct. Reviewed, dictated and finalized at location [facility]. Impression: Status post cholecystectomy. Nonvisualization of the pancreas and common bile duct.
== END 2022-12-14 10:49 | disposition home or self-care (01) ==
PROVIDERS: PCP Orthopaedic Surgery; Visit Provider Internal Medicine Gastroenterology
DX: R10.84 Generalized abdominal pain (principal); Z90.49 Acquired absence of other specified parts of digestive tract
CPT/HCPCS: 76705

== ENCOUNTER 2023-02-09 12:33 | Outpatient (CLI) | payer BC, MEDICAID, SELFPAY ==
--- NOTE | ~2023-02-09 | XR_ITS ---
Clinical Indication: Dyspnea PA and lateral views of the chest: Comparison: 06/13/2022 Findings: The lungs are clear, without evidence of focal consolidation or pleural effusion. Cardiome diastinal silhouette is stable, status post median sternotomy. Bones and soft tissues are unremarkabl e. Impression: Clear lungs. Reviewed, dictated and finalized at location . Impression: Clear lungs.
== END 2023-02-09 12:34 | disposition home or self-care (01) ==
LOC: ANHIMG 12:39
PROVIDERS: PCP Physician Assistant; Visit Provider Internal Medicine Cardiovascular Disease
DX: R06.00 Dyspnea, unspecified (principal)
CPT/HCPCS: 71046

== ENCOUNTER 2023-03-01 11:10 | Emergency (ER) | payer MEDICAID, SELFPAY ==
[2023-03-01] VITALS (13 sets, daily range): BP systolic 93–120; BP diastolic 51–77; PULSE 78–95; RESP 16–20; TEMP 36.2; O2SAT 91–100
--- NOTE | ~2023-03-01 | CT_ITS ---
CT of the Abdomen and Pelvis: Indication: Abdominal pain Technique: 2.5 mm axial scans were obtained through the abdomen and pelvis following intravenous adm inistration of 100 cc of Omnipaque 350. Dose reduction technique was used on this scan by utilizing a utomated exposure control and iterative reconstruction technique. The dose-length product (DLP) was 4 65.63 mGy-cm. COMPARISON: 03/20/2009 Findings: Scans through the lung bases are unremarkable. The liver, spleen, pancreas, adrenals and kidneys are within normal limits. Cholecystectomy clips are present. No evidence of aortic aneurysm. No lymphadenopathy. There is mild diffuse large bowel wall thickening probably present. No bowel obstruction. No abscess or free air. Images through the pelvis were performed. Urinary bladder unremarkable. No adnexal mass seen. No asci mercy. Impression: Probable mild diffuse large bowel wall thickening. Correlate for infectious/inflammatory colitis. Reviewed, dictated and finalized at [facility]. Impression: Probable mild diffuse large bowel wall thickening. Correlate for infectious/inf lammatory colitis.
--- NOTE | ~2023-03-01 | XR_ITS ---
Clinical Indication: Chest pain PA and lateral views of the chest: Comparison: 02/09/2023 Findings: The lungs are clear, without evidence of focal consolidation or pleural effusion. Cardiome diastinal silhouette is stable. Bones and soft tissues are unremarkable. Impression: Clear lungs. Reviewed, dictated and finalized at location . Impression: Clear lungs.
[2023-03-01 12:25] LABS: Basophils Absolute Auto 0.1 K/mm3 (0.0-0.1); Basophils Percent Auto 0.7 % (0.2-1.2); Eosinophils Absolute Auto 0.2 K/mm3 (0-0.3); Eosinophils Percent Auto 2.2 % (0-4.4); Hematocrit 42.4 % (37.0-47.0); Hemoglobin 13.5 g/dL (12.0-15.0); Immature Granulocyte Absolute 0.05 K/mm3 (0.00-0.031); Immature Granulocyte Percent A 0.5 % (0-0.5); Lymphocytes Absolute Auto 2.56 K/mm3 (0.9-3.2); Lymphocytes Percent Auto 27.3 % (18.3-44.2); Mean Corpuscular HGB Conc 31.8 g/dl (32-36); Mean Corpuscular Hemoglobin 27.6 pg (26-34); Mean Corpuscular Volume 86.5 fl (80-100); Mean Platelet Volume 9.5 fl (7.4-10.4); Monocytes Absolute Auto 0.6 K/mm3 (0.1-0.6); Monocytes Percent Auto 5.9 % (2.6-8.5); Neutrophils Absolute Auto 5.9 K/mm3 (1.3-6.7); Neutrophils Percent Auto 63.4 % (45.5-73.1); Platelet Count Result 347 k/mm3 (150-375); Red Cell Distribution Width 16.3 % (11.5-14.5); White Blood Count 9.4 K/mm3 (4.5-10.0)
[2023-03-01 12:26] LABS: Appearance Urine Clear (Clear); Bilirubin Urine Negative (Negative); Blood Urine Negative (Negative); Color Urine Yellow (Yellow); Glucose Urine UA 3+ mg/dL (Negative); Ketones Urine Negative (Negative); Leukocyte Esterase Ur Negative LEU/UL (Negative); Nitrate Urine Negative (Negative); Protein Urine Negative (Negative); Specific Grav Ur 1.019 (1.001-1.035); pH Urine 5.5 (5.0-9.0)
[2023-03-01 12:32] LABS: Add Urine Microscopic? NO
[2023-03-01 12:34] LABS: Alanine Aminotransferase 23 U/L (6-35); Albumin Level 4.1 g/dL (3.5-5.1); Alkaline Phosphatase 73 U/L (38-126); Anion Gap 7 mmol/L (8-16); Aspartate Amino Transferase 23 U/L (14-36); Bilirubin,Total 0.4 mg/dL (0.2-1.3); Blood Urea Nitrogen 7 mg/dL (7-17); Calcium 8.9 mg/dL (8.4-10.2); Carbon Dioxide 26 mmol/L (22-30); Chloride 108 mmol/L (98-107); Estimated CRCL calculation 40 ml/min; Estimated Glomerular Filt Rate 43; Glucose 99 mg/dL (65-110); Lipase 77 U/L (23-300); Potassium 3.1 mmol/L (3.4-5.0); Sodium 141 mmol/L (137-145)
--- NOTE | 2023-03-01 12:50 | ED.NAVMDI ---
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 Patient states that she has had right upper quadrant and right lower quadrant pain for at least the last week. States that she has been persistently nauseated and has vomited a few times. States that she had diarrhea earlier today. Complains of chronic fatigue. Also complains of chronic chest pain after having open heart surgery. No fevers or chills, headache, numbness or weakness, shortness of breath, cough, dysuria, leg swelling. Related Data Home Medications Medication Instructions Recorded Confirmed trazodone 150 mg tablet 150 mg HS 04/11/20 02/09/23 bupropion HCl 300 mg 24 hr tablet, 450 mg PO DAILY 06/09/21 02/09/23 extended release duloxetine 60 mg capsule,delayed 80 mg PO DAILY 06/09/21 02/09/23 release topiramate 100 mg tablet (Topamax) 100 mg PO BID 08/19/21 02/09/23 linaclotide 72 mcg capsule 72 mcg PO DAILY 03/10/22 02/09/23 (Linzess) cholecalciferol (vitamin D3) 10 10 mcg PO DAILY 09/20/22 02/09/23 mcg (400 unit) capsule brexpiprazole 0.5 mg tablet 0.5 mg PO DAILY 10/07/22 02/09/23 (Rexulti) famotidine 20 mg tablet 20 mg PO DAILY 02/09/23 02/09/23 famotidine 20 mg tablet 20 mg PO DAILY 02/09/23 02/09/23 galcanezumab-gnlm 120 mg/mL 120 mg subcut MONTHLY 02/09/23 02/09/23 subcutaneous syringe (Emgality) hydroxyzine HCl 10 mg tablet 10 mg PO TID PRN 02/09/23 02/09/23 Allergies Allergy/AdvReac Type Severity Reaction Status Date / Time NSAIDS (Non-Steroidal AdvReac Mild Other Verified 03/01/23 11:40 Anti-Inflamma Review of Systems Review of Systems: All systems reviewed & are unremarkable except as noted in HPI and below PMFSH Past Medical History Medical History Anxiety CAD (coronary artery disease) CHF (congestive heart failure), NYHA class I GERD (gastroesophageal reflux disease) Headache, migraine Heart disease IBS (irritable bowel syndrome) Thyroid disease Surgical History Surgical History History of open heart surgery Family History Family History Father Heart disease Diabetes mellitus Depression Social History Social History Smoking status: Never smoker Living arrangements: with family Gender identity (if verbalized by the patient): Female Exam Narrative: GENERAL: Well-appearing, well-nourished, and in no acute distress. HEAD: Normocephalic, atraumatic. EYES: PERRLA and EOMI. ENT: Nares clear, no rhinorrhea or epistaxis. Mucous membranes moist. NECK: Supple. CHEST: Clear to auscultation. No respiratory distress. HEART: Regular rate and rhythm. No murmur heard. Normal peripheral pulses. ABDOMEN: Soft, + tenderness right upper and right lower quadrant without guarding or rebound EXTREMITIES: Normal range of motion. No edema. SKIN: Warm, dry, no rash. NEURO: No focal deficits. Alert and oriented x3. PSYCH: Normal mood and affect. Course Vital Signs Vital signs: Vital Signs Temperature 97.1 F L 03/01/23 11:29 Pulse Rate 95 03/01/23 11:29 Respiratory Rate 20 03/01/23 11:29 Blood Pressure 103/51 L 03/01/23 11:29 Pulse Oximetry 100 03/01/23 11:29 Oxygen Delivery Room Air 03/01/23 11:29 Temperature 97.1 F L 03/01/23 11:29 Pulse Rate 78 03/01/23 17:20 Respiratory Rate 16 03/01/23 17:20 Blood Pressure 117/62 03/01/23 17:20 Pulse Oximetry 97 03/01/23 17:20 Oxygen Delivery Room Air 03/01/23 11:29 KEREN Carter
--- NOTE | 2023-03-01 12:53 | ECG_ITS ---
Measurements Intervals [place] Rate: 74 P: 67 PA: 166 QRS: 35 QRSD: 99 T: 40 QT: 376 QTc: 419 Interpretive Statements SINUS RHYTHM NONSPECIFIC T-WAVE ABNORMALITY- ANT/INF LEADS BORDERLINE ECG COMPARED TO ECG 08/28/2019 15:31:02 SINUS RHYTHM NOW PRESENT T-WAVE ABNORMALITY NOW PRESENT Electronically Signed On 03-01-2023 15:11:50 CDT by Tom Mireles D.O.
[2023-03-01 13:10] LABS: Prothrombin Time 13.2 Seconds (11.1-14.7)
[2023-03-01 13:12] LABS: Partial Thromboplastin Time 27.4 SECONDS (22.3-36.8)
[2023-03-01] MEDS: HYDROmorphone HCL INJ (*CRX) 1 MG/ML SYR 0.5 MG IV PUSH (13:17)
[2023-03-01] MEDS: ONDANSETRON INJ 4 MG/2 ML VIAL IV PUSH (13:18)
[2023-03-01] MEDS: LACTATED RINGERS 1,000 ML 999 ML IV CONT ×2 (13:20→14:57)
[2023-03-01 13:35] LABS: Magnesium 2.1 mg/dL (1.6-2.3)
[2023-03-01 13:48] LABS: Troponin I < 0.012 ng/mL (0.000-0.034)
[2023-03-01 16:11] LABS: Troponin I < 0.012 ng/mL (0.000-0.034)
== END 2023-03-01 17:20 | disposition home or self-care (01) ==
PROVIDERS: Emergency Medicine; Emergency Provider Emergency Medicine; PCP Physician Assistant
DX: K52.9 Noninfective gastroenteritis and colitis, unspecified (principal); I25.10 Atherosclerotic heart disease of native coronary artery without angina pectoris; I50.9 Heart failure, unspecified; E78.5 Hyperlipidemia, unspecified; E03.9 Hypothyroidism, unspecified; K58.9 Irritable bowel syndrome, unspecified; K21.9 Gastro-esophageal reflux disease without esophagitis; R94.31 Abnormal electrocardiogram [ECG] [EKG]
CPT/HCPCS: 36415; 71046; 74177; 80053; 81003; 81025; 83690; 83735; 84443; 84484; 85025; 85610; 85730; 93005; 96361; 96374; 96375; 99284; J1170; J2405; J7120; Q9967

== ENCOUNTER 2023-06-16 10:39 | Outpatient (CLI) | payer OTHER, SELFPAY ==
--- NOTE | ~2023-06-16 | XR_ITS ---
XR sternum min 2V DATE: 06/16/2023 11:08 INDICATION: Sternal pain since open heart surgery TECHNIQUE: Lateral and oblique views COMPARISON: None Fractured FINDINGS: 5 sternal wires, 2 of which are fractured but unchanged since 02/26/2023. No fracture deformity or bone destruction of the sternum is noted. IMPRESSION: Status post sternotomy Reviewed, dictated and finalized at location B. IMPRESSION: Status post sternotomy
== END 2023-06-16 10:40 | disposition home or self-care (01) ==
LOC: ANHIMG 10:43
PROVIDERS: PCP Physician Assistant; Visit Provider Physician Assistant
DX: R07.2 Precordial pain (principal)
CPT/HCPCS: 71120

== ENCOUNTER 2023-07-20 10:35 | Outpatient (CLI) | payer OTHER, SELFPAY ==
--- NOTE | ~2023-07-20 | CT_ITS ---
CT Scan of the Chest without Contrast: Clinical Indication: Precordial pain Technique: Contiguous sections were acquired throughout the chest without intravenous contrast. Dose reduction technique was used on this scan by utilizing automated exposure control and iterative recon struction technique. The dose-length product (DLP) was 136.78 mGy-cm. Findings: There is no evidence of any significant mediastinal, hilar or axillary lymphadenopathy. The mediastin al soft tissues appear normal. There is no evidence of pleural or pericardial effusion. The lungs are clear. No pulmonary nodules or infiltrates are noted. Images through the upper abdomen reveal no abnormalities. Impression: No significant abnormalities seen. Reviewed, dictated and finalized at location . E OPERATIONS Impression: No significant abnormalities seen.
== END 2023-07-20 10:36 | disposition home or self-care (01) ==
PROVIDERS: PCP Physician Assistant; Visit Provider Physician Assistant
DX: R07.2 Precordial pain (principal)
CPT/HCPCS: 71250

== ENCOUNTER 2024-02-09 14:31 | Outpatient (CLI) | payer OTHER, SELFPAY ==
--- NOTE | ~2024-02-09 | US_ITS ---
EXAMINATION: US renal BI DATE: 02/09/2024 14:52 INDICATION: Chronic kidney disease TECHNIQUE: Multiple ultrasound grayscale images of the kidneys were obtained. COMPARISON: None. FINDINGS: The right kidney measures 9.8 x 4.0 x 4.5 cm. The left kidney measures 10.2 x 5.1 x 4.9 cm. The kidne ys demonstrate normal echogenicity. There is no hydronephrosis in either kidney. No stones identifie d. The bladder is normal. IMPRESSION: 1. Normal kidneys without hydronephrosis. Reviewed, dictated and finalized at location A.
== END 2024-02-09 14:32 | disposition home or self-care (01) ==
PROVIDERS: PCP Physician Assistant
DX: N18.30 Chronic kidney disease, stage 3 unspecified (principal)
CPT/HCPCS: 76775

== ENCOUNTER 2024-05-22 09:08 | Outpatient (CLI) | payer OTHER, SELFPAY ==
--- NOTE | 2024-05-22 | ECG_ITS ---
Test Date: 2024-05-22 10:00:51 Measurements Intervals [place] Rate: 81 P: 62 VT: 139 QRS: 26 QRSD: 86 T: 61 QT: 337 QTc: 393 Interpretive Statements SINUS RHYTHM NORMAL ELECTROCARDIOGRAM No previous ECG available for comparison Electronically Signed On 05-22-2024 11:12:37 CDT by Martínez Ely M.D.
== END 2024-05-22 09:09 | disposition home or self-care (01) ==
LOC: ANHCARD 09:13
PROVIDERS: PCP Physician Assistant; Visit Provider Physician Assistant
DX: R07.9 Chest pain, unspecified (principal)
CPT/HCPCS: 93005

== ENCOUNTER 2024-11-19 18:14 | Emergency (ER) | payer OTHER, SELFPAY ==
--- NOTE | ~2024-11-19 | XR_ITS ---
HISTORY: fall COMPARISON: None TECHNIQUE: 3 views of the right wrist were performed. FINDINGS: Acute fracture of the distal radius is identified, with dorsal displacement of the distal fracture fr agment. Acute minimally displaced ulnar styloid fracture is also noted. Remainder of the right wrist is unremarkable. IMPRESSION: Acute fracture of the distal radius with dorsal displacement of the distal fracture fragment. Minimally displaced ulna styloid fracture. Reviewed, dictated and finalized at location A. IMPRESSION: Acute fracture of the distal radius with dorsal displacement of the distal frac ture fragment. Minimally displaced ulna styloid fracture.
[2024-11-19 18:17] VITALS: BP 120/52; PULSE 96; RESP 20; TEMP 36.9; O2SAT 98
--- OUTSIDE RECORDS SUMMARY | 2024-11-19 18:17 | XMS_ITS | Clinical Summary ---
Author Organization [facility] Address [address] [place] [address] Care Team Providers Care Clinical Operations Specialist Name Role Phone Unknown, Provider Primary Care Provider Unavaila ble Source Comments [facility],non-owned Affiliates and Associated Physician Practices is amultiple site organization consisting of ambulatory clinics and hospital sitesin [place], [place], [place] and [place]. This disclosure is being madepursuant to the Care Everywhere program and may not contain all information available regarding this patient. Last updated 18.[facility] Allergies Active Allergy Reactions Criticality Noted Date Comments Nsaids Tinnitus 05/29/2018 Medications * Be aware that medications may not be up to date on this document. Alwaysverify current medications with the patient. Medication Sig Dispensed Refills Start Date End Date Status pantoprazole EC (Protonix) 40 MG tablet Take 1 (one) tablet by mouth at bedtime Active levothyroxine (Synthroid) 112 MCG tablet Take 1 (one) tablet by mouth once daily Active famotidine (Pepcid) 40 MG tablet Take 1 (one) tablet by mouth at bedtime Active DULoxetine (Cymbalta) 60 MG capsule 01/21/2024 Active Farxiga 10 MG tablet Take 1 (one) tablet by mouth once daily 01/19/2024 Active tamsulosin (Flomax) 0.4 MG capsule TAKE 1 CAPSULE BY MOUTH WITH DINNER Active Stimulant Laxative 8.6-50 MG tablet Take 1 (one) tablet by mouth 2 times daily Active polyethylene glycol 3350 (Miralax) 17 GM/SCOOP powder DISSOLVE 17 GRAMS IN 4 TO 8 OZ OF BEVERAGE AND DRINK BY MOUTH DAILY Active methocarbamol (Robaxin) 500 MG tablet TAKE 1 TABLET BY MOUTH EVERY 8 HOURS NEEDED FOR MUSCLE SPASMS. CONTACT PCP FOR REFILLS Active liraglutide (Victoza) 18 MG/3ML pen Inject subcutaneously once daily Active gabapentin (Neurontin) 300 MG capsule Take 1 (one) capsule by mouth 3 times daily 11/14/2023 Active Docusate Sodium (DSS) 100 MG Take 100 mg by mouth 2 times daily 11/14/2023 Active calcium carbonate-vitamin D 600-10 MG-MCG tablet Take by mouth once daily Active Calcium Carb-Cholecalcifero l (Oyster Shell Calcium w/D) 500-5 MG-MCG TABS Take 1 tablet by mouth once daily 11/15/2023 Active bisacodyl (Dulcolax) 10 MG suppository Insert 1 (one) suppository into the rectum once daily as needed 11/14/2023 Active Qulipta 60 MG TABS Take 1 (one) tablet by mouth once daily 01/19/2024 Active ALPRAZolam (Xanax) 0.25 MG tablet TAKE 1 TABLET BY MOUTH 1 HOUR PRIOR TO INJECTION THEN TAKE 1 TABLET BY MOUTH 30 MINUTES BEFORE INJECTION THEN TAKE 1 TABLET BY MOUTH RIGHT BEFORE INJECTION IF NEEDED Active acetaminophen (Tylenol) 325 MG tablet Take 1 (one) tablet by mouth once daily Active linaCLOtide (Linzess) 290 MCG capsule Take 1 (one) capsule by mouth daily before breakfast Take on an empty stomach at least 30 minutes prior to first meal of the day. Active brexpiprazole (Rexulti) 1 MG tablet Take 1 (one) tablet by mouth once daily Active Active Problems Problem Noted Date Diagnosed Date Anomalous origin of right coronary artery 2020 Decreased GFR 12/07/2020 Other specified hypothyroidism 12/07/2020 Depression 11/03/2020 Family History Medical History Relation Name Comments CAD (Coronary Artery Disease) Father Cancer Father Diabetes Father Glaucoma Father Hypertension Father Stroke Maternal Grandmother Diabetes Mother Relation Name Status Comments Father Maternal Grandmother Mother Social History Tobacco Use Types Packs/Day Years Used Date Smoking Tobacco: Never Smokeless Tobacco: Never Alcohol Use Standard Drinks/Week Comments Not Currently 0 (1 standard drink = 0.6 oz pur e alcohol) occ AUDIT-C Answer Date Recorded Q1: How often do you have a drink containing alcohol? Never 12/19/2022 Q2: How many drinks containi ng alcohol do you have on a typical day when you are drinking? Patient does not drink Q3: How often do you have si x or more drinks on one occasion? Never 12/19/2022 Sex and Gender Information Value Date Recorded Sex Assigned at Female 01/21/2024 12:00 PM CDT Gender Identity Female 01/21/2024 12:00 PM CDT Sexual Orientation Straight 01/21/2024 12 :00 PM CDT Last Filed Vital Signs Vital Sign Reading Time Taken Comments Blood Pressure 107/63 12/19/2022 11:00 AM CDT Pulse 85 12/19/2022 11:00 AM CDT Temperature 36.2 C (97.2 F) 12/19/2022 10:40 AM CDT Respiratory Rate 16 12/19/2022 11:00 AM CDT Oxygen Saturation 96% 12/19/2022 11:00 AM CDT Inhaled Oxygen Concentration 21% 11/28/2022 1 2:11 PM CDT Weight 77.1 kg (170 lb) 12/19/2022 9:33 AM CDT Height 154.9 cm (5' 1 ) 12/19/2022 9:33 AM CDT Body Mass Index 32.12 12/19/2022 9:33 AM CDT Plan of Treatment Upcoming Encounters Date Type Department Care Team (Late st Contact Info) Description 01/21/2025 11:00 AM CDT Office Visit [facility] - Ophthalmology [address] [place] [address] [phone] Abisai Stoll MD [address] [place] [address] [place] [address] Health Maintenance Due Date Last Done Comments COLOGUARD (AGES 45-75) - COL ON CA SCREENING 1968 COLON MONITORING 1968 COLONOSCOPY - COLON CA SCREENING 1968 CT COLONOGRAPHY - COLON CA SCREENING 1968 Colorectal Cancer Screening 1968 FIT - COLON CA SCREENING 1968 FLEX SIG - COLON CA SCREENING 1968 MAMMOGRAM 1968 HIV SCREENING 1983 HEPATITIS C SCREENING 07/03/1986 DTAP/TDAP/TD VACCINES (1 - Tdap) 1987 HEPATITIS B VACCINE (1 of 3 - 19+ 3-dose series) 1987 LIPID TESTING 01/19/2015 01/19/2010 PNEUMOCOCCAL VACCINE 50+ (1 of 1 - PCV) 2018 ZOSTER VACCINE (1 of 2) 2018 COVID-19 VACCINE (1 - 2023-2 5 season) 2024 DEPRESSION SCREENING 08/14/2024 INFLUENZA VACCINE (Season Ended) 2025 PAP SMEAR 09/13/2025 09/13/2022 HIB VACCINE Aged Out No longer eligi ble based on patient's age to complete this topic HPV VACCINE Aged Out No longer eligi ble based on patient's age to complete this topic MENINGOCOCCAL (Group B) VACC INE SHARED DECISION-MAKING Aged Out No longer eligibl e based on patient's age to complete this topic MENINGOCOCCAL GROUPS A/C/Y/W VACCINE Aged Out No longer eligible b ased on patient's age to complete this topic PNEUMOCOCCAL VACCINE Aged Out No long er eligible based on patient's age to complete this topic Medical Devices Implanted Type Area Pocket Secretary Assembler Device Identifier Shelf Expiration Date Model / Serial / Lot Tecnis Eyhance Iol Implanted:Qty: 1 on 11/28/2022 by Adolfo Costello MD at [facility] Right: Eye [employer] 02/26/2025 [id number] / [id number] / [id number] Tecnis Eyhance Iol +22.5d Implanted:Qty: 1 on 12/19/2022 by Adolfo Costello MD at [facility] Left: Eye [employer] 08/13/2025 [id number] / [id number] / 0000 Procedures Procedure Name Priority Date/Time Associated Diagnosis Comments LIPID PROFILE Timed 01/19/2010 3:50 AM CDT Chest Pain from Last 3 Months or Most Recently Relevant to Health Maintenance Results * LIPID PROFILE (01/19/2010 3:50 AM CDT) Cholesterol 169 <200 mg/dl [facility] Triglycerides 107 <200 mg/dl [facility] HDL Cholesterol 50 >35 mg/dl [facility] LDL Direct 86.11 <130 mg/dl [facility] BLOOD SPECIMEN / Unknown 01/19/2010 3:50 AM CDT 01/19/2010 8:54 AM CDT Conrad Santos Jr., MD LAB - CHEMISTRY ORDERABLES [facility] [address] [place] [address] from Last 3 Months or Most Recently Relevant to Health Maintenance Advance Directives * Full Code (Latest Code Status on File) Date Activated Date Inactivated Comments 01/20/2010 1:25 PM 01/21/2010 11:52 PM * Full Code Date Activated Date Inactivated Comments 01/19/2010 3:17 AM 01/20/2010 1:25 PM Care Teams Clinical Operations Specialist Relationship Specialty Start Date End Date Unknown, Provider PCP - General 09/26/22
--- OUTSIDE RECORDS SUMMARY | 2024-11-19 18:17 | XMS_ITS | Referral Summary ---
Author Organization [facility] [address] Address [address] [place] [address] Care Team Providers Care Reactor Kettle Operator Name Role Phone Candi Pereira Primary Care Provider + Tom Mireles DO Unavailable [phone] Ramone Salinas MD Unavailable [phone] Viki Mendoza MD PhD Unavailable [phone] Allergies Active Allergy Reactions Criticality Noted Date Comments Nsaids (Non-Steroidal Anti-Inflammatory Drug) Other (See comments),Tinnitus Low 05/31/2021 Ringing in the ears Medications buPROPion XL (WELLBUTRIN XL) 300 mg 24 hr tabletIndications: Anxiety with Depression Take 1 tablet (300 mg total) by mouth every morning Along with 150 mg Q AM Active hydrOXYzine (VISTARIL) 50 mg capsuleIndications :Pruritus of Skin Take 1 capsule (50 mg total) by mouth 3 (three) times a day as needed for itching Active acetaminophen (TYLENOL) 500 mg tabletIndications: Headache Disorder,Pain Take 2 tablets (1,000 mg total) by mouth every 6 (six) hours as needed for pain or headaches 01/22/20 10 Active levothyroxine (SYNTHROID) 112 mcg tabletIndications: hypothyroidism Take 1 tablet (112 mcg total) 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 10/03/19 23 Active pravastatin (PRAVACHOL) 10 mg tabletIndications: hyperlipidemia Take 1 tablet (10 mg total) by mouth nightly 06/16/[address] (PROTONIX) 40 mg EC tabletIndications: Treatment of Non-Bleeding Gastric Disorder Take 1 tablet (40 mg total) by mouth nightly Active polyethylene glycol (MIRALAX) 17 gram/dose bulk powderIndications: constipation Take 17 g by mouth daily as needed (constipation) 10/11/19 24 Active bisacodyL (DULCOLAX) 10 mg suppositoryIndicat ions:constipation Insert 1 suppository (10 mg total) into the rectum daily as needed for constipation 11/14/19 24 Active calcium carbonate-vitamin D3 1,250mg (500mg elemental) - 5 mcg (200 units) per tablet Take 1 tablet by mouth daily 30 tablet 11/15/19 24 Active Additional Information Patient taking differently:1 tablet oralEvery morning, Indications: Hypocalcemia Prevention, Prevention of Vitamin D Deficiency, Informant: Self, Reported on 04/01/2024 gabapentin (NEURONTIN) 300 mg capsule Take 1 capsule (300 mg total) by mouth 3 (three) times a day 90 capsule 11/14/19 24 Active Additional Information Patient taking differently:300 mg oral2 times daily, Indications: Neuropathic Pain, Informant: Self, Reported on 03/22/2024 linaCLOtide (LINZESS) 290 mcg capsuleIndications :functional constipation Take 1 capsule (290 mcg total) by mouth daily before breakfast 11/15/19 24 Active Additional Information Patient taking differently:290 mcg oralNightly, Indications: functional constipation, Informant: Self, Reported on 03/22/2024 methocarbamoL (ROBAXIN) 500 mg tablet Take 1 tablet (500 mg total) by mouth 3 (three) times a day 11/14/19 24 Active Additional Information Patient not taking.Informant: Self, Reported on 04/01/2024 ALPRAZolam (XANAX) 0.25 mg tablet TAKE 1 TABLET BY MOUTH 1 HOUR PRIOR TO INJECTION THEN TAKE 1 TABLET BY MOUTH 30 MINUTES BEFORE INJECTION THEN TAKE 1 TABLET BY MOUTH RIGHT BEFORE INJECTION IF NEEDED Active Qulipta 60 mg tabletIndications: Migraine Prevention Take 1 tablet by mouth every morning Active brexpiprazole (REXULTI) 1 mg tabletIndications: Depression Treatment Adjunct Take 1 tablet (1 mg total) by mouth every morning Active Farxiga 10 mg tabletIndications: HEART Take 1 tablet (10 mg total) by mouth every morning 03/11/20 Active liraglutide (Victoza 2-Sanchez) 0.6 mg/0.1 mL (18 mg/3 mL) injectionIndicatio ns:WEIGHT LOSS Inject 0.6 mg under the skin daily Indications: WEIGHT LOSS NOT TAKING Active DULoxetine DR (CYMBALTA) 20 mg capsuleIndications :Anxiety with Depression Take 1 capsule (20 mg total) by mouth nightly 03/11/[address] (CYMBALTA) 60 mg capsuleIndications :Anxiety with Depression Take 1 capsule (60 mg total) by mouth nightly 80MG TOTAL 03/04/20 Active famotidine (PEPCID) 40 mg tabletIndications: Heartburn,Heartbur n Prevention Take 1 tablet (40 mg total) by mouth nightly 03/02/20 Active ferrous sulfate (iron) 325 mg (65 mg of elemental iron) tabletIndications: Iron Deficiency Anemia Take 1 tablet (325 mg total) by mouth daily with breakfast Active cyanocobalamin, vitamin B-12, (VITAMIN B-12 ORAL)Indications:s upplement Take 1 tablet by mouth every morning Active ondansetron ODT (ZOFRAN-ODT) 4 mg disintegrating tabletIndications: Nausea and Vomiting Take 1 tablet (4 mg total) by mouth every 6 (six) hours as needed for nausea or vomiting 20 tablet 04/05/20 Active senna-docusate (PERICOLACE) 8.6-50 mg Take 2 tablets by mouth 2 (two) times a day 30 tablet 04/05/20 24 Active oxyCODONE (ROXICODONE) 5 mg immediate release tabletIndications: Pain Take 1 tablet (5 mg total) by mouth every 6 (six) hours as needed for pain 20 tablet 04/05/20 24 Active oxyCODONE (ROXICODONE) 5 mg immediate release tabletIndications: Pain Take 1 tablet (5 mg total) by mouth every 4 (four) hours as needed for pain 20 tablet 04/05/20 24 Active Active Problems Problem Noted Date Diagnosed Date Anxiety 04/04/2024 Class 1 obesity with body ma ss index (BMI) of 32.0 to 32.9 in adult 04/04/2024 Hypothyroidism 04/04/2024 GERD (gastroesophageal reflux disease) Hyperlipidemia 04/04/2024 CAD (coronary artery disease) 04/04/2024 CKD (chronic kidney disease) 04/04/2024 Presence of retained hardware 03/06/2024 Depression 11/09/2023 Assessment & Plan (11/09/2023 12:36 PM CDT): Hx of depression Have restarted her Wellbutrin, Cymbalta, and Topimax Will follow Sternal wound dehiscence 11/07/2023 Assessment & Plan (11/14/2023 12:23 PM CDT): 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 Mendoza this morning (11/12) - She removed Prevena and are ok with her going to rehab today. Dr. Mendoza would like her on Keflex until Jps are removed when she sees her back on 11/27. Patient is to wear surgical bra and binder AT ALL TIMES. Keflex started- continue until seen in follow up Chest wall pain following surgery 07/11/2023 Assessment & Plan (11/13/2023 6:22 PM CDT): Pt with significant pain On oxycodone 5 q 3 Tylenol 1000 mg q 6 hours PRN gabapentin and robaxin Linzess for constipation prevention, home med Surgical Bra and abd binder in place Continue to assess. 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 Resolved Problems Problem Noted Date Diagnosed Date Resolved Date Acute postoperative pain 11/08/2023 Status post debridement 11/07/2023 03/2 03/2024 Assessment & Plan (11/07/2023 3:26 AM CDT): Patient underwent debridement and flap procedure with Dr Salinas and Dr Mendoza Monitor MARINA drain output Sternal precautions Monitor post op labs Advance diet as tolerated Wound care Leucocytosis 11/07/2023 11/13/2023 Assessment & Plan (11/13/2023 6:22 PM CDT): Slight elevation in WBC post op now wnl Remains afebrile, continues to trend down OOB, IS Monitor resolved Social History Tobacco Use Types Packs/Day Years Used Date Smoking Tobacco: Never Smokeless Tobacco: Never Tobacco Cessation:Counseling Given: Not Answered Social Connection and Isolat ion Panel [NHANES] Answer Date Recorded In a typical week, how many times do you talk on the phone with family, friends, or neighbors? More than three times a week 01/27/2022 How often do you get togethe r with friends or relatives? More than three times a week 01/27/2022 Attends Bahai Services Not on file 01/27 Active Member of Clubs or Organizations Not on f ile 01/27/2022 Attends Club or Organization Meetings Not on anthony e 01/27/2022 Are you , , di vorced, , never , or living with a partner? 01/27/2022 AUDIT-C Answer Date Recorded Q1: How often do you have a drink containing alcohol? Never 04/03/2024 Q2: How many drinks containi ng alcohol do you have on a typical day when you are drinking? Patient does not drink Q3: How often do you have si x or more drinks on one occasion? Never 04/03/2024 Overall Financial Resource Strain (CARDIA) Answe r Date Recorded How hard is it for you to pa y for the very basics like food, housing, medical care, and heating? Not very hard 01/27/2022 Hunger Vital Sign Answer Date Recorded Within the past 12 months, y ou worried that your food would run out before you got the money to buy more. Never true 01/28/20 22 Within the past 12 months, t he food you bought just didn't last and you didn't have money to get more. Never true 01/27/2022 PRAPARE - Transportation Answer Date Re corded In the past 12 months, has l ack of transportation kept you from medical appointments or from getting medications? No 01/12 In the past 12 months, has l ack of transportation kept you from meetings, work, or from getting things needed for daily living? No 01/27/2022 Personal Safety Answer Date Recorded Have you ever been in or are you currently in a harmful physical or emotional relationship or is someone making you feel afraid or unsafe? 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 Gender Identity Not on file Sexual Orientation Not on file Last Filed Vital Signs Vital Sign Reading Time Taken Comments Blood Pressure 143/87 04/05/2024 8:00 AM CDT Pulse 97 04/05/2024 8:00 AM CDT Temperature 36.7 C (98.1 F) 04/05/2024 8:00 AM CDT Respiratory Rate 17 04/05/2024 8:00 AM CDT Oxygen Saturation 98% 04/05/2024 8:00 AM CDT Inhaled Oxygen Concentration - - Weight 78.4 kg (172 lb 12.8 oz) 04/03/2024 3:55 PM CDT Height 154.9 cm (5' 1 ) 04/03/2024 7:00 PM CDT Body Mass Index 32.65 04/03/2024 3:55 PM CDT Plan of Treatment Not on file Medical Devices Implanted Type Area Eyelet Cutter Device Identifier Shelf Expiration Date Model / Serial / Lot [employer] Sternalock Prabhakar 8 Hole Sternum Plate Bone 2.4 Mm Screw 73-2623 - [id number] Implanted:Qty: 1 on 11/06/2023 by Viki Mendoza MD PhD at [facility] [employer] 73-2623 / / [employer] Plate Bone Sternalock 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 Sp-0625 - [id number] Implanted:Qty: 1 on 11/06/2023 by Viki Mendoza MD PhD at [facility] [employer] [id number] / / [employer] Sternalock Prabhakar 2.4mm 10mm Self Drill Lock Sternum Cancellous 73-3510 - [id number] Implanted:Qty: 1 on 11/06/2023 by Viki Mendoza MD PhD at [facility] [employer] 73-2410 / / [employer] Sternalock Prabhakar 2.4mm 12mm Self Drill Lock Sternum Cancellous 73-2412 - [id number] Implanted:Qty: 12 on 11/06/2023 by Viki Mendoza MD PhD at [facility] [employer] 73-2412 / / [employer] Sternalock Prabhakar 2.4mm 14mm Self Drill Lock Sternum Cancellous 73-2414 - [id number] Implanted:Qty: 8 on 11/06/2023 by Viki Mendoza MD PhD at [facility] [employer] 73-2414 / / [employer] Sternalock Prabhakar 2.4mm 16mm Self Drill Lock Sternum Cancellous 73-2416 - [id number] Implanted:Qty: 6 on 11/06/2023 by Viki Mendoza MD PhD at [facility] [employer] 73-2416 / / [employer] Sternalock Prabhakar 2.7mm 12mm Self Drill Lock Sternum Cancellous [id number] - [id number] Implanted:Qty: 3 on 11/06/2023 by Viki Mendoza MD PhD at [facility] [employer] 73-2712 / / [employer] Sternalock Prabhakar 6 Hole Sternum Hexagon Plate Bone Primary Closure Sp-2890 - [id number] Implanted:Qty: 1 on 11/06/2023 by Viki Mendoza MD PhD at [facility] N/A: Sternum [employer] SP-2890 / / [employer] Sternalock Prabhakar 4 Hole 2 Side Low Profile Sternum 100d L Plate 73-1633 - [id number] Implanted:Qty: 1 on 11/06/2023 by Viki Mendoza MD PhD at [facility] N/A: Sternum [employer] [id number] / / [employer] 2.4mm 14mm Self Drill Lock Rib Prebent Screw Bone Titanium 76-9230 - [id number] Implanted:Qty: 1 on 04/03/2024 by Viki Mendoza MD PhD at [facility] N/A: Sternum [employer] 76-2602 / / [employer] Ribfix Prabhakar 2.4mm 10mm Self Tap Lock Screw Bone 76-6900 - [id number] Implanted:Qty: 8 on 04/03/2024 by Viki Mendoza MD PhD at [facility] N/A: Sternum [employer] 76-2410 / / [employer] Screw Bone St Locking Ribfix Prabhakar 2.4x12mm Ti 76-0932 - [id number] Implanted:Qty: 3 on 04/03/2024 by Viki Mendoza MD PhD at [facility] N/A: Sternum [employer] 76-2412 / / Insurance [facility] [place] [address] [place] [address] [place] [address] Advance Directives For more information, please contact: [phone] * Full Code (Latest Code Status on File) Date Activated Date Inactivated Comments 04/03/2024 1:13 PM 04/05/2024 3:26 PM * Full Code Date Activated Date Inactivated Comments 11/07/2023 3:06 AM 11/14/2023 11:20 PM * Full Code Date Activated Date Inactivated Comments 01/26/2022 11:21 AM 01/31/2022 5:07 PM Care Teams Reactor Kettle Operator Relationship Specialty Start Date End Date Candi Pereira PA PCP - General Physician Transport Engineer 02/18/21 Tom Mireles DO [address] [place] [address] Referring Physician Internal Medicine 07/07/21 Ramone Salinas MD [address] [facility] [id number] [place] [address] Surgeon Cardiothoracic Surgery 11/14/23 Viki Mendoza MD PhD [address] [place] [address] Consulting Physician Plastic Surgery 11/14/23
--- OUTSIDE RECORDS SUMMARY | 2024-11-19 18:17 | XMS_ITS | Encounter Summary ---
Author Organization [facility] Address [address] [facility] [address] Care Team Providers Care Manager Of Program Name Role Phone Unknown, Provider Primary Care Provider Unavaila ble Reason for Visit * Reason Onset Date Comments Nurse Only 06/13/2023 Encounter Details Date Type Department Care Team (Late st Contact Info) Description 06/13/2023 Telephone [facility] - Centralized Scheduling [address] [place] [address] Adolfo Costello MD [address] [facility] [place] [address] Nurse Only Social History Tobacco Use Types Packs/Day Years [...] Orientation Straight 01/21/2024 12 :00 PM CDT documented as of this encounter Miscellaneous Notes * Telephone Encounter - Jelly Fletcher - 06/13/2023 1:05 PM CDT Pt calling to speak to office about disability pt stated property claim rep called her yesteday and she could not answer questions properly, pt is scheduled for 07/2023 documented in this encounter Plan of Treatment Upcoming Encounters Date Type Department Care Team (Late st Contact Info) Description 01/21/2025 11:00 AM CDT Office Visit [facility] - Ophthalmology [address] [place] [id number] Abisai Stoll MD [address] [place] [address] [place] [address] documented as of this encounter Visit Diagnoses Not on filedocumented in this encounter Care Teams Manager Of Program Relationship Specialty Start Date End Date Unknown, Provider PCP - General 09/26/22 documented as of this encounter
--- OUTSIDE RECORDS SUMMARY | 2024-11-19 18:17 | XMS_ITS | Clinical Summary ---
Author Organization [facility] [address] Address [address] [place] [address] Care Team Providers Care Steward/Stewardess Smoke Room Name Role Phone Candi Pereira Primary Care Provider + Tom Mireles DO Unavailable [phone] Ramone Salinas MD Unavailable [phone] Viki Mendoza MD PhD Unavailable [phone] Allergies Active Allergy Reactions Criticality Noted Date [...] 1 tablet (112 mcg total) by mouth scalper operator before breakfast 10/03/19 23 Active pravastatin (PRAVACHOL) [...] UE PT/OT rec rehab - [facility] in [place] has accepted pending insurance authorization Spoke to [...] to trend down OOB, IS Monitor resolved Surgical History Surgery Date Site/Laterality Comments CARDIAC SURGERY 01/12/2022 - 02/10/2022 UNROOFING OF ANOMALOUS RIGHT CORONARY ARTERY CATARACT EXTRACTION 11/28/2022 Right CATARACT EXTRACTION 12/19/2022 Left OTHER SURGICAL HISTORY 10/13/2023 Bilateral Repair of subzyphoid rectis diastasis Medical History Medical History Date Comments Covid-2019 Thyroid disease Depression Anxiety associated with depression Anomalous origin of right coronary artery Kidney disease Status post debridement 11/07/2023 Leucocytosis 11/07/2023 Family History Medical History Relation Name Comments Heart attack Brother Cancer Father Heart attack Father Heart disease Father Hypertension Father Anesthesia problems Neg Hx Relation Name Status Comments Brother Alive Father Social History Tobacco Use Types Packs/Day Years [...] than three times a week 01/27/2022 Attends [employer] Not on file 01/27 Active Member [...] on file 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 Gender Identity Not on file Sexual Orientation Not on file Obstetrics History Last Filed Vital Signs Vital Sign Reading [...] 04/03/2024 3:55 PM CDT Plan of Treatment Health Maintenance Due Date Last Done Comments Breast Cancer Screening-Mammogram 1968 Cervical Cancer Screening 1968 Colon Cancer Screening-Colonoscopy 1968 Depression Screening 1968 Hepatitis C Screening 1968 Hepatitis B Screening 1986 Regular Well Visit/Exam 18-64 1986 Zoster Vaccine (1 of 2) 2018 Covid-19 Vaccine (3 - season) 2024 01/27/2021, 12/26/2020 Influenza Vaccine (Season Ended) 2025 05/12/2015, 06/10/2014, 06/10/2014, Additional history exists DTaP/Tdap/Td Vaccine (4 - Td or Tdap) 01/22/2029 01/22/2019, 10/02/2012, 08/14/2012 Pneumococcal vaccine <65 Aged Out No longer eligible based on patient's age to complete this topic Medical Devices Implanted Type Area Ring Facer Device Identifier Shelf Expiration Date Model / Serial / Lot [employer] Sternalock Prabhakar 8 Hole Sternum Plate Bone 2.4 Mm Screw 73-8843 - [id number] Implanted:Qty: 1 on 11/06/2023 by Viki Mendoza MD PhD at [facility] [employer] 73-2623 / / [employer] Plate Bone Sternalock 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 Sp-2485 - [id number] Implanted:Qty: 1 on 11/06/2023 by Viki Mendoza MD PhD at [facility] [employer] SP-[id number] / / [employer] Sternalock Prabhakar 2.4mm 10mm Self Drill Lock Sternum Cancellous 73-2410 - [id number] Implanted:Qty: 1 on 11/06/2023 by Viki Mendoza MD PhD at [facility] [employer] 73-2410 / / [employer] Sternalock Prabhakar 2.4mm 12mm Self Drill Lock Sternum Cancellous 73-2412 - [id number] Implanted:Qty: 12 on 11/06/2023 by Viki Mendoza MD PhD at [facility] [employer] 73-2412 / / [employer] Sternalock Prabhakar 2.4mm 14mm Self Drill Lock Sternum Cancellous 73-2414 - [id number] Implanted:Qty: 8 on 11/06/2023 by Viki Mendoza MD PhD at [facility] [employer] 73-2414 / / [employer] Sternalock Prabhakar 2.4mm 16mm Self Drill Lock Sternum Cancellous 73-2416 - [id number] Implanted:Qty: 6 on 11/06/2023 by Viki Mendoza MD PhD at [facility] [employer] 73-2416 / / [employer] Sternalock Prabhakar 2.7mm 12mm Self Drill Lock Sternum Cancellous 73-5502 - [id number] Implanted:Qty: 3 on 11/06/2023 by Viki Mendoza MD PhD at [facility] [employer] 73-2712 / / [employer] Sternalock Prabhakar 6 Hole Sternum Hexagon Plate Bone Primary Closure Sp-2890 - [id number] Implanted:Qty: 1 on 11/06/2023 by Viki Mendoza MD PhD at [facility] N/A: Sternum [employer] SP-2890 / / [employer] Sternalock Prabhakar 4 Hole 2 Side Low Profile Sternum 100d L Plate 73-1673 - [id number] Implanted:Qty: 1 on 11/06/2023 by Viki Mendoza MD PhD at [facility] N/A: Sternum [employer] 73-2643 / / [employer] 2.4mm 14mm Self Drill Lock Rib Prebent Screw Bone Titanium 76-5842 - [id number] Implanted:Qty: 1 on 04/03/2024 by Viki Mendoza MD PhD at [facility] N/A: Sternum [employer] 76-2602 / / [employer] Ribfix Prabhakar 2.4mm 10mm Self Tap Lock Screw Bone 76-4460 - [id number] Implanted:Qty: 8 on 04/03/2024 by Viki Mendoza MD PhD at [facility] N/A: Sternum [employer] 76-2410 / / [employer] Screw Bone St Locking Ribfix Prabhakar 2.4x12mm Ti 76-2412 - [id number] Implanted:Qty: 3 on 04/03/2024 by Viki Mendoza MD PhD at [facility] N/A: Sternum [employer] 76-4649 / / Insurance [facility] [place] [address] [place] [address] [place] [address] Advance Directives For more information, please contact: [phone] * Full Code (Latest Code Status on File) Date Activated Date Inactivated Comments 04/03/2024 1:13 PM 04/05/2024 3:26 PM * Full Code Date Activated Date Inactivated Comments 11/07/2023 3:06 AM 11/14/2023 11:20 PM * Full Code Date Activated Date Inactivated Comments 01/26/2022 11:21 AM 01/31/2022 5:07 PM Care Teams Steward/Stewardess Smoke Room Relationship Specialty Start Date End Date Candi Pereira PA PCP - General Physician Manager Plant 02/18/21 Tom Mireles DO [address] [place] [address] Referring Physician Internal Medicine 07/07/21 Ramone Salinas MD [address] [facility] [address] [place] [address] Surgeon Cardiothoracic Surgery 11/14/23 Viki Mendoza MD PhD [address] [place] [address] Consulting Physician Plastic Surgery 11/14/23
--- OUTSIDE RECORDS SUMMARY | 2024-11-19 18:17 | XMS_ITS | Clinical Summary ---
Author Organization [facility] Address [address] [place] [phone] Phone Care Team Providers Care Packager And Strapper Name Role Phone Unavailable Primary Care Provider Unavailabl e Allergies Active Allergy Reactions Criticality Noted Date Comments Nsaids Tinnitus 01/10/2024 Medications Medication Sig Dispensed Refills Start Date End Date Status acetaminophen (TYLENOL) 325 MG tablet Take 325 mg by mouth in the morning. Active buPROPion XL (WELLBUTRIN XL) 150 MG 24 hr tablet Take 150 mg by mouth 1 (one) time each day Active promethazine (PHENERGAN) 25 MG tablet Take 12.5 mg by mouth every 6 (six) hours if needed for nausea or vomiting Active DULoxetine (CYMBALTA) [address] capsule Take 20 mg by mouth 1 (one) time each day Take 20mg every evening with a 60mg Active linaCLOtide (Linzess) 290 MCG capsule Take 1 capsule by mouth in the morning. Active famotidine (PEPCID) 40 MG tablet Take 40 mg by mouth every night Active Calcium Carbonate-Vitamin D 600-10 MG-MCG tablet Take by mouth daily Active Brexpiprazole (Rexulti) 1 MG tablet Take 1 mg by mouth 1 (one) time each day Active liraglutide (Victoza) 18 MG/3ML injection Inject under the skin 1 (one) time each day Active levothyroxine sodium (TIROSINT) 125 MCG capsule Take 125 mcg by mouth 1 (one) time each day Active Dapagliflozin Propanediol (Farxiga) 5 MG tablet Take 5 mg by mouth 1 (one) time each day Active Active Problems Problem Noted Date Diagnosed Date Chronic kidney disease 01/10/2024 Family History Medical History Relation Comments Diabetes Father Hypertension Father Relation Status Comments Father Social History Tobacco Use Types Packs/Day Years Used Date Smoking Tobacco: Never Smokeless Tobacco: Never Sex and Gender Information Value Date Recorded Sex Assigned at Not on file Gender Identity Not on file Sexual Orientation Not on file Last Filed Vital Signs Vital Sign Reading Time Taken Comments Blood Pressure 117/67 01/11/2024 2:24 PM CDT Pulse 85 01/11/2024 2:24 PM CDT Temperature - - Respiratory Rate - - Oxygen Saturation - - Inhaled Oxygen Concentration - - Weight 74.8 kg (165 lb) 01/11/2024 2:24 PM CDT Height 154.9 cm (5' 1 ) 01/11/2024 2:24 PM CDT Body Mass Index 31.18 01/11/2024 2:24 PM CDT Plan of Treatment Upcoming Encounters Date Type Department Care Team (Late st Contact Info) Description 12/26/2024 12:40 PM CDT Office Visit [facility] [address] [facility] [address] [place] [address] Pancho Samaniego MD [address] [facility] [address] [place], [place] [id number] Health Maintenance Due Date Last Done Comments Pneumococcal PPSV23 Highest Risk Adult (1 of 3 - PCV13 ) 1987 Influenza Vaccine (Season Ended) 2025
--- OUTSIDE RECORDS SUMMARY | 2024-11-19 18:17 | XMS_ITS | Encounter Summary ---
Author Organization [facility] Address [address] [place] [address] Phone Care Team Providers Care Molding Technician Name Role Phone Candi Pereira Primary Care Provider + Tom Mireles DO Unavailable [phone] Ramone Salinas MD Unavailable [phone] Viki Mendoza MD PhD Unavailable [phone] Encounter Details Date Type Department Care Team (Late st Contact Info) Description 08/22/2023 Orders Only [facility] [phone] Scanning, Provider Social History Tobacco Use Types Packs/Day Years Used Date Smoking Tobacco: Never Smokeless Tobacco: Never Social Connection and Isolat ion Panel [NHANES] Answer Date Recorded In a typical week, how many times do you talk on the phone with family, friends, or neighbors? More than three times a week 01/27/2022 How often do you get togethe r with friends or relatives? More than three times a week 01/27/2022 Attends Tenriism Services Not on file 01/27 Active Member of Clubs or Organizations Not on f ile 01/27/2022 Attends Club or Organization Meetings Not on anthony e 01/27/2022 Are you , , di vorced, , never , or living with a partner? 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 Gender Identity Not on file Sexual Orientation Not on file documented as of this encounter Plan of Treatment Not on file documented as of this encounter Procedures Procedure Name Priority Date/Time Associated Diagnosis Comments SCAN - RADIOLOGY/IMAGING 08/22/2023 documented in this encounter Results * SCAN - RADIOLOGY/IMAGING (08/22/2023) Anatomical Region Laterality Modality Other us Provider Scanning Final Result documented in this encounter Visit Diagnoses Not on filedocumented in this encounter Care Teams Molding Technician Relationship Specialty Start Date End Date Candi Pereira PA PCP - General Physician Supervisor Endless Track Vehicle 02/18/21 Tom Mireles DO [address] [facility] [address] [place] [address] Referring Physician Internal Medicine 07/07/21 Ramone Salinas MD [address] [facility] [id number] [place] [address] Surgeon Cardiothoracic Surgery 11/14/23 Viki Mendoza MD PhD [address] [place] [address] Consulting Physician Plastic Surgery 11/14/23 documented as of this encounter
--- OUTSIDE RECORDS SUMMARY | 2024-11-19 18:17 | XMS_ITS | Data Portability ---
Author Organization [facility] [place] Address [address] [place] [address] [place] [address] Care Team Providers Care Reimbursement Rep Name Role Phone BEVERLY GEMINI Primary Care Provider [phone] [facility] OTHER [phone] Assessment Encounter Date Assessment Date Assessment LastModified by Organization Details LastModified Time 03/10/2020 03/10/2020 Annual gynecological exam performed. Patient will come back in a year unless there are new symptoms. [email or web address] Not available 03/10/2020 17:06:44 09/13/2022 09/13/2022 Annual gynecological exam performed. Patient will come back in a year unless there are new symptoms. [email or web address] Not available 09/13/2022 14:07:22 09/21/2023 09/21/2023 Annual gynecological exam performed. Patient will come back in a year unless there are new symptoms. [email or web address] Not available 09/21/2023 09:18:09 Plan of Treatment Reminders Order Date Submit Date Provider Last Modified By Organization Details Last Modified Time Details Appointments None recorded. Lab None recorded. Referral None recorded. Procedures None recorded. Surgeries None recorded. Imaging MAMMO, screening, digital, bilateral [address] [facility] [address], [place], [address], 4 05:00:58 Medication Orders None recorded. Patient TargetsNo targets recorded. Patient Instructions Encounter Date Encounter Id Patient Instructions Last Modified By Organization Details Last Modified Time 03/10/2020 [id number] Suggest Calcium with Vitamin D if not eating in diet. Patient advised to get annual flu shot. Recommend yearly physicals and preform monthly breast exams. Genetic testing is available for patients with family history of cancer. Engage in safe sexual practices, use condoms. Encouraged to have daily exercise. Avoid tobacco and illicit drugs, moderation of alcohol. If BMI greater than 25 dietary consult advised. If you have any questions please call or email. Not available 03/10/2020 17:35:38 Reason for Referral None Reported. Results Created Date Observation Date Name Description Value Unit Range Abnormal Flag Note LastModifiedBy Organization Detail LastModifiedTime 03/10/20 20 03/11/2020 vitam in B12 + folat e, serum or blood vitamin B12 308 pg/mL 232-12 45 Not Available [facility] ([facility]) [address] [place] [address] Dr Nielson, [place], [address], 03/11/2020 14:38:14 03/10/20 20 03/11/2020 vitam in B12 + folat e, serum or blood folate 11.10 NG/mL >4.59 Not Available [facility] ([facility]) [address] [place] [address] Dr Nielson, [place], [address], 03/11/2020 14:38:14 03/10/20 20 03/11/2020 CBC w/ auto diff WBC 7.0 K/uL 3.8-11 .5 Not Available [facility]) [address] [place] [address] Dr Nielson, [place], [address], 03/11/2020 14:38:14 03/10/20 20 03/11/2020 CBC w/ auto diff red blood cell count (RBC) 4.04 M/mm3 3.60-5 .30 Not Available [facility] [employer]) [address] [place] [address] Dr Nielson, [place], [address], 03/11/2020 14:38:14 03/10/20 20 03/11/2020 CBC w/ auto diff hemoglobin (HGB) 12.7 gm/dL 11.5-1 5.5 Not Available [facility] ([facility]) [facility] [address] Nielson, [place], [address], 03/11/2020 14:38:14 03/10/20 20 03/11/2020 CBC w/ auto diff hematocrit (HCT) 37.3 % 35.2-4 6.4 Not Available [facility] ([facility]) [address] [place] [address] Dr Nielson, [place], [address], 03/11/2020 14:38:14 03/10/20 20 03/11/2020 CBC w/ auto diff MCV 92.3 fL 79.0-9 9.0 Not Available [facility] ([facility]) [address] [place] [address] Dr Nielson, [place], [address], 03/11/2020 14:38:14 03/10/20 20 03/11/2020 CBC w/ auto diff MCH 31.4 pg 26.9-3 5.0 Not Available [facility]) [address] [place] [address] Dr Nielson, [place], [address], 03/11/2020 14:38:14 03/10/20 20 03/11/2020 CBC w/ auto diff MCHC 34.0 g/dL 30.4-3 4.8 Not Available [facility] ([facility]) [address] [place] [address] Dr Nielson, [place], [address], 03/11/2020 14:38:14 03/10/20 20 03/11/2020 CBC w/ auto diff RDW 44.4 fL 38.6-5 3.8 Not Available [facility] ([facility]) [address] [place] [address] Dr Nielson, [place], [address], 03/11/2020 14:38:14 03/10/20 20 03/11/2020 CBC w/ auto diff platelet count 257 K/cum m 137-39 7 Not Available [facility] ([facility]) [address] [place] [address] Dr Nielson, [place], [address], 03/11/2020 14:38:14 03/10/20 20 03/11/2020 CBC w/ auto diff neutrophils automated 51.2 % 41.0-7 7.0 Not Available [facility] ([facility]) [address] [place] [address] Dr Nielson, [place], [address], 03/11/2020 14:38:14 03/10/20 20 03/11/2020 CBC w/ auto diff lymphocytes automated 34.2 % 14.0-4 8.0 Not Available [facility] ([facility]) [address] [place] [address] Dr Nielson, [place], [address], 03/11/2020 14:38:14 03/10/20 20 03/11/2020 CBC w/ auto diff monocytes automated 9.3 % 4.0-13 .0 Not Available [facility] ([facility]) [address] [place] [address] Dr Nielson, [place], [address], 03/11/2020 14:38:14 03/10/20 20 03/11/2020 CBC w/ auto diff eosinophils automated 4.1 % 0.0-8. 0 Not Available [facility] ([facility]) [address] [place] [address] Dr Nielson, [place], [address], 03/11/2020 14:38:14 03/10/20 20 03/11/2020 CBC w/ auto diff basophils automated 0.9 % 0.0-1. 5 Not Available [facility] ([facility]) [address] [place] [address] Dr Nielson, [place], [address], 03/11/2020 14:38:14 03/10/20 20 03/11/2020 CBC w/ auto diff immature granulocyte automated 0.3 % 0.0-1. 0 Not Available [facility] ([facility]) [address] [place] [address] Dr Nielson, [place], [address], 03/11/2020 14:38:14 03/10/20 20 03/11/2020 T4, free, serum thyroxine free (free T4) 0.87 NG/dL 0.86-1 .76 Not Available [facility]) [address] [place] [address] Dr Nielson, [place], [address], 03/11/2020 14:38:15 03/10/20 20 03/11/2020 TSH, serum or plasm a TSH reflex to FT4 12.30 mU/L 0.27-4 .20 high Not Available [facility] ([facility]) [address] [place] [address] Dr Nielson, [place], [address], 03/11/2020 14:38:16 03/10/20 20 03/11/2020 vitam in D, 25-hy droxy , total , serum vitamin D 25-hydroxy 25.3 NG/mL 30.0-1 00.0 low Inter preta tion of Vitam in D 25 OH: < 20 ng/mL - Defic iency 20 - 29 ng/mL - Insuf ficie ncy 30 - 100 ng/mL - Suffi cienc y > 100 ng/mL - Super -ther apeut ic- toxic ity may occur above this level . Clini aysha corre latio n requi red. Not Available [facility] ([facility]) [address] [place] [address] Dr Nielson, [place], [address], 03/11/2020 14:38:16 03/10/20 20 03/13/2020 pap, LB Pap test thin prep Negati ve for Intrae pithel ial Lesion or Malign kimani normal ACCES KECIA #: [id number] Sourc e: Cervi aysha/E ndoce rvica l LMP: 2007 Date Taken : 03/10 Speci men Type: ThinP rep Vial Date Repor brayden: 2019 Clini aysha Data: Cytot ech: Reva Sullivan , CT( CP) Date Repor brayden: 2019 Speci men Adequ acy: Satis facto ry for evalu ation Gener al Categ oriza tion: NEGAT NORBERTO FOR INTRA EPITH ELIAL LESIO N OR MALRIMA RODCY Inter preta tion/ Resul t: Atrop hy The follo wing tests have been order ed as reque sted and a separ ate repor t will be issue d: Chlam ydia, Gonor rhoea e, and Trich omona s This speci men has been lisette zed by the ThinP rep Imagi ng Syste m, an inter activ e compu ter syste m which jenifer ts the lab in the scree james of ThinP rep Pap Test slide s. Follo wing imagi ng, the slide was revie wed by a Cytot echno logis t and/o r Patho logis t. D N A A S S A Y S R E P O R T TEST NAME RESUL TS ----- ---- ----- -- HPV High Risk Scree n (TMA) ThinP rep Vial The human papil lomav irus (HPV) High Risk Scree n is an FDA-a pprov ed in-vi tro ampli fied nucle ic acid test for the quali tativ e detec tion of E6/E7 viral mRNA. Resul ts shoul d be corre lated with patie nt prese ntati on, histo ry, cervi aysha cytol ogy and other clini aysha and labor atory findi ngs. See https ://[employer] w[employer]/s ites/ defau lt/fi les/2 018-0 3/AW- 10889 _002_ 01.pd f for fursarah er infor matio n. Test perfo rmed by [facility], d/b/a [facility], [address], [facility] [place] [address] , Paco Hernandez ra, DO, Labor atory Direc tor. HPV High Risk *HPV NOT DETEC BRAYDEN (TYPE S 16, 18, 31, 33, 35, 39, 45, 51, 52, 56, 58, 59, 66, 68) *HPV: The human papil lomav irus (HPV) High Risk Lyla trujillo is an FDA-a pprov ed in-vi tro ampli fied nucle ic acid test for the quali tativ e detec tion of E6/E7 viral mRNA. Resul ts shoul d be corre lated with patie nt prese ntati on, histo ry, cervi aysha cytol ogy and other clini aysha and labor atory findi ngs. See https ://[employer]/s ites/ defau lt/fi les/2 018-0 3/AW- 14842 _002_ 01.pd f for furth er infor nancy n. Test perfo rmed by [facility], d/b/a [employer] [facility], [address], [place] [address] , Paco Hernandez ra, DO, Labor atory Direc tor. End of t Techn ical servi raymond provi ded by [facility], [facility]a [employer], [address] [place] [address] Watson Davila MD, Labor ator Dire tor. Case revie wed and diagn osis rende red at [facility], d/b/a [employer] [facility], [address] [place] [address] Watson Davlia MD, Labor atory Dire tor. CONFI DENTI AL Not Available [facility] ([facility]) [address], [place], [address], 03/13/2020 17:18:56 03/10/20 20 03/13/2020 CT + NG DNA, PCR, unspe cifie d speci men trichomonas vaginalis, aptima (panther) NOT DETECT ED normal DNA testi ng perfo rmed by [employer] brayden Ampli ficat ion (TMA) These resul ts shoul d be inter prete d in light of all clini aysha and labor atory findi ngs. This assay is highl y accur ate, but rare false posit norberto and negat norberto resul ts may occur . Posit norberto resul ts in low preva lence popul ation s may requi re re-ev aluat ion. A negat norberto resul t does not precl ude a possi ble infec tion due to a speci men inade quacy or sampl ing error . Test perfo rmed by [facility] [employer], d/b/a [facility], [address], [place] [address] , Paco Hernandez ra, DO, Labor atory Direc tor. Not Available [facility] ([facility]) [address] [place] [address], [place], [address], 03/13/2020 17:18:56 03/10/20 20 03/13/2020 CT + NG DNA, PCR, unspe cifie d speci men neisseria gonorrhoeae, aptima NOT DETECT ED normal DNA testi ng perfo rmed by [employer] brayden Ampli ficat ion (TMA) These resul ts shoul d be inter prete d in light of all clini aysha and labor atory findi ngs. This assay is highl y accur ate, but rare false posit norberto and negat norberto resul ts may occur . Posit norberto resul ts in low preva lence popul ation s may requi re re-ev aluat ion. A negat norberto resul t does not precl ude a possi ble infec tion due to a speci men inade quacy or sampl ing error . Test perfo rmed by [facility] [employer], d/b/a [facility], [address], [place] [address] , Paco Hernandez ra, DO, Labor atory Direc tor. Not Available [facility]) [address], [place], [address], 03/13/2020 17:18:56 03/10/20 20 03/13/2020 CT + NG DNA, PCR, unspe cifie d speci men chlamydia trachomatis, aptima NOT DETECT ED normal DNA testi ng perfo rmed by [employer] brayden Ampli ficat ion (TMA) These resul ts shoul d be inter prete d in light of all clini aysha and labor atory findi ngs. This assay is highl y accur ate, but rare false posit norberto and negat norberto resul ts may occur . Posit norberto resul ts in low preva lence popul ation s may requi re re-ev aluat ion. A negat norberto resul t does not precl ude a possi ble infec tion due to a speci men inade quacy or sampl ing error . Test perfo rmed by [facility], d/b/a [facility], [address], [place] [address] , Paco Hernandez ra, DO, Labor atory Direc tor. Not Available [facility] ([facility]) [address], [place], [address], 03/13/2020 17:18:56 03/10/20 20 03/13/2020 HPV DNA, high- risk HPV high risk NOT DETECT ED normal The human papil lomav irus (HPV) High Risk Lyla trujillo is an FDA-a pprov ed in-vi tro ampli fied nucle ic acid test for the quali tativ e detec tion of E6/E7 viral mRNA. Resul ts shoul d be corre lated with patie nt prese ntati on, histo ry, cervi aysha cytol ogy and other clini aysha and labor atory findi ngs. See https ://[employer] w[employer]ex/s ites/ defjayleen lt/fi les/2 018-0 3/AW- 30046 _002_ 01.pd f for david kochr nhiclifton cassandra. Test perfo rmed by [employer], d/b/a [facility], [address], [place] [address] , Paco Hernandez ra, DO, Labor atory Dire tor. Not Available [facility] ([facility]) [address] [facility] [address], [place], [address], 03/13/2020 17:18:57 Result Notes None recorded. Procedures Surgical History Date Name Laterality Status Provider Name and Address Organization Details Recorded Time 12/20/19 23 cataract surgery completed [facility] 09/20/2023 21:09:39 09/13/19 23 Date of Last Pap Smear completed [facility] 09/21/2023 12:51:50 01/17/20 22 open heart surgery completed Mary Carter FLOR [address], [place], [address], [facility] 09/21/2023 11:06:28 11/13/19 22 Date of Last Colonoscopy completed [facility] 09/21/2023 10:27:09 11/13/19 22 Colonoscopy completed [facility] 09/21/2023 10:28:14 03/15/20 19 biopsy completed [facility] 03/18/2020 17:41:45 08/14/18 94 ligation of bilateral fallopian tubes completed [facility] 03/18/2020 17:41:57 06/26/19 91 section completed [facility] 03/18/2020 17:41:05 05/14/19 90 biopsy completed [facility] 03/18/2020 17:41:24 Imaging Results None recorded. Procedure Notes None recorded. Medical Equipment None Reported. Allergies Allergen ID Allergen Name Allergen Category Reaction Reaction Severity Criticality Documentation Date Start Date Code Code System Note Provider Name and Address Organization Details Recorded Time 1579 Non-stero idal anti-infl ammatory agent (product) medicatio n Not available Not available Not available 03/18/2020 31995 005 SNOMED [facility] 0 17:38:32 Medications Name Sig Start Date Stop Date Status Note LastModified by Organization Details LastModified Time methocarbam ol 500 mg tablet TAKE 1 TABLET BY MOUTH EVERY 8 HOURS NEEDED FOR MUSCLE SPASMS. CONTACT PCP FOR REFILLS active Not Available Not Available No t Available promethazin e-DM 6.25 mg-15 mg/5 mL oral syrup TAKE 5 ML BY MOUTH EVERY 4 TO 6 HOURS FOR 5 DAYS NEEDED active Not Available Not Available No t Available levothyroxi ne 137 mcg tablet TAKE 1 TABLET BY MOUTH DAILY active Not Available Not Available No t Available trazodone 50 mg tablet 09/13 completed Not Available Not Available Not Available benzonatate 200 mg capsule TAKE 1 CAPSULE BY MOUTH THREE TIMES DAILY NEEDED active Not Available Not Available No t Available hydrocodone 5 mg-acetamin ophen 325 mg tablet TAKE 1 TABLET BY MOUTH EVERY 4 HOURS NEEDED FOR PAIN 09/13 completed Not Available Not Available Not Available ondansetron HCl 4 mg tablet TAKE 1 TABLET BY MOUTH EVERY 8 HOURS FOR 5 DAYS NEEDED FOR NAUSEA OR VOMITING active Not Available Not Available No t Available famotidine 40 mg tablet TAKE 1 TABLET BY MOUTH EVERY NIGHT AT BEDTIME active Not Available Not Available No t Available hydroxyzine pamoate 50 mg capsule TAKE ONE CAPSULE BY MOUTH TWICE DAILY NEEDED FOR ANXIETY active Not Available Not Available No t Available peg-electro lyte solution 420 gram oral solution TAKE DIRECTED BY OFFICE active Not Available Not Available No t Available tramadol 50 mg tablet TAKE 1 TO 2 TABLETS BY MOUTH THREE TIMES DAILY NEEDED FOR PAIN active Not Available Not Available No t Available triamcinolo ne acetonide 0.1 % topical cream APPLY THIN LAYER TOPICALLY TO THE AFFECTED AREA TWICE DAILY FOR 2 WEEKS active Not Available Not Available No t Available amoxicillin 875 mg tablet TAKE 1 TABLET BY MOUTH TWICE DAILY FOR 10 DAYS active Not Available Not Available No t Available alprazolam 0.25 mg tablet TAKE 1 TABLET BY MOUTH 1 HOUR PRIOR TO INJECTION THEN TAKE 1 TABLET BY MOUTH 30 MINUTES BEFORE INJECTION THEN TAKE 1 TABLET BY MOUTH RIGHT BEFORE INJECTION IF NEEDED active Not Available Not Available No t Available prednisolon e acetate 1 % eye drops,suspe nsion SHAKE LIQUID AND INSTILL 1 DROP IN RIGHT EYE FOUR TIMES DAILY active Not Available Not Available No t Available pravastatin 10 mg tablet TAKE 1 TABLET BY MOUTH EVERY DAY AT BEDTIME active Not Available Not Available No t Available tamsulosin 0.4 mg capsule TAKE 1 CAPSULE BY MOUTH WITH DINNER active Not Available Not Available No t Available cephalexin 500 mg capsule TAKE 1 CAPSULE BY MOUTH EVERY 12 HOURS active Not Available Not Available No t Available pantoprazol e 40 mg tablet,harrison yed release active Not Available Not Available Not Available erythromyci n 5 mg/gram (0.5 %) eye ointment APPLY 1 THIN LAYER IN EACH EYE DAILY active Not Available Not Available No t Available trazodone 150 mg tablet TAKE 2 TABLETS BY MOUTH EVERY NIGHT AT BEDTIME active Not Available Not Available No t Available oseltamivir 75 mg capsule TAKE 1 CAPSULE BY MOUTH TWICE DAILY FOR 5 DAYS active Not Available Not Available No t Available promethazin e 25 mg tablet TAKE 1/2 (ONE-HALF ) TABLET BY MOUTH EVERY 6 HOURS NEEDED FOR NAUSEA active Not Available Not Available No t Available minocycline 50 mg capsule TAKE 1 CAPSULE BY MOUTH EVERY DAY 09/13 completed Not Available Not Available Not Available guanfacine 1 mg tablet 09/13 completed Not Available Not Available Not Available gabapentin 300 mg capsule TAKE 1 CAPSULE BY MOUTH EVERY 8 HOURS active Not Available Not Available No t Available clobetasol 0.05 % topical ointment APPLY OINTMENT TOPICALLY TO AFFECTED AREA TWICE DAILY FOR 2 WEEKS THEN ONCE DAILY FOR 2 WEEKS THEN NEEDED FOR MAINTAINA NCE active Not Available Not Available No t Available polyethylen e glycol 3350 17 gram/dose oral powder DISSOLVE 17 GRAMS IN LIQUID AND DRINK BY MOUTH EVERY DAY NEEDED active Not Available Not Available No t Available Vitamin D2 1,250 mcg (50,000 unit) capsule 03/10 completed Not Available Not Available Not Available dextroamphe tamine-amph etamine ER 30 mg 24hr capsule,ext end release 03/10 completed Not Available Not Available Not Available propranolol 20 mg tablet active Not Available Not Available Not Available ondansetron 4 mg disintegrat ing tablet active Not Available Not Available N ot Available topiramate 100 mg tablet TAKE 1 TABLET BY MOUTH TWICE DAILY AROUND THE CLOCK active Not Available Not Available No t Available levothyroxi ne 112 mcg tablet TAKE 1 TABLET BY MOUTH DAILY active Not Available Not Available No t Available amoxicillin 875 mg-potassiu m clavulanate 125 mg tablet TAKE 1 TABLET BY MOUTH EVERY 12 HOURS active Not Available Not Available No t Available oxycodone 5 mg tablet TAKE 1 TABLET BY MOUTH EVERY 6 HOURS NEEDED FOR MODERATE TO SEVERE PAIN active Not Available Not Available No t Available moxifloxaci n 0.5 % eye drops 09/21 completed Not Available Not Available Not Available bupropion HCl XL 300 mg 24 hr tablet, extended release TAKE 1 TABLET BY MOUTH EVERY DAY IN THE MORNING active Not Available Not Available No t Available bupropion HCl XL 150 mg 24 hr tablet, extended release TAKE 1 TABLET BY MOUTH EVERY DAY IN THE MORNING active Not Available Not Available No t Available duloxetine 20 mg capsule,del ayed release TAKE ONE CAPSULE BY MOUTH EVERY EVENING ALONG WITH 60 MG DOSE active Not Available Not Available No t Available duloxetine 60 mg capsule,del ayed release TAKE ONE CAPSULE BY MOUTH EVERY EVENING ALONG WITH 20 MG active Not Available Not Available No t Available Synthroid 09/13 completed Not Available Not Available Not Available Celexa 09/13 completed Not Available Not Available Not Available calcium 600 mg (as carbonate)- vitamin D3 10 mcg (400 unit) tablet TAKE 1 TABLET BY MOUTH EVERY DAY active Not Available Not Available No t Available FeroSul 325 mg (65 mg iron) tablet TAKE 1 TABLET BY MOUTH EVERY OTHER DAY. active Not Available Not Available No t Available Linzess 290 mcg capsule TAKE 1 CAPSULE BY MOUTH DAILY active Not Available Not Available No t Available Stimulant Laxative Plus 8.6 mg-50 mg tablet TAKE 1 TABLET BY MOUTH TWICE DAILY active Not Available Not Available No t Available Farxiga 10 mg tablet TAKE 1 TABLET BY MOUTH EVERY DAY active Not Available Not Available No t Available Farxiga 5 mg tablet TAKE 1 TABLET BY MOUTH EVERY DAY active Not Available Not Available No t Available Rexulti 1 mg tablet TAKE 1 TABLET BY MOUTH EVERY DAY active Not Available Not Available No t Available Rexulti 0.5 mg tablet TAKE 1 TABLET BY MOUTH EVERY DAY IN THE MORNING active Not Available Not Available No t Available Emgality Pen 120 mg/mL subcutaneou s pen injector ADMINISTE R 1 ML UNDER THE SKIN EVERY 30 DAYS active Not Available Not Available No t Available Qulipta 60 mg tablet TAKE 1 TABLET BY MOUTH DAILY active Not Available Not Available No t Available Vitals Date Recorded Body height Body mass index (BMI) Body weight Systolic blood pressure Diastolic blood pressure Provider Name and Address Organization Details Last Updated DateTime 03/10/2020 152.4 cm 32 kg/m2 14315.15 g 123 mm[Hg] 67 mm[Hg] Janeth Peedrsen [facility] 0 17:10:18 Date Recorded Body height Body mass index (BMI) Body weight Systolic blood pressure Diastolic blood pressure Provider Name and Address Organization Details Last Updated DateTime 09/13/2022 152.4 cm 33.1 kg/m2 02187.55 g 112 mm[Hg] 73 mm[Hg] Ching Dao [facility] 3 14:08:29 Date Recorded Body height Provider Name an d Address Organization Details Last Updated DateTime 09/21/2023 152.4 cm Noris Brothers [facility] 09/21/2023 09:18:13 Date Recorded Body mass index (BMI) Body weight Systolic blood pressure Diastolic blood pressure Provider Name and Address Organization Details Last Updated DateTime 09/21/2023 33.3 kg/m2 59331.86 g 116 mm[Hg] 77 mm[Hg] Janeth Pedersen [facility] 09/21/2023 09:33:32 Social History Question Answer Notes LastModified by Organizat ion Details LastModified Time Tobacco Smoking Status Never Smoker Janeth Pedersen null, [facility] 03/18/2020 17:40:15 What Is Your Level Of Alcohol Consumption? None [email or web address] Information not available 03/18/2020 Are You Blind Or Do You Have Difficulty Seeing? No Information not available 09/13/2022 Are You Deaf Or Do You Have Serious Difficulty Hearing? No Information not available 09/13/2022 What Type Of Diet Are You Following? REGULAR Information not available 09/13/2022 Which Illicit Or Recreational Drugs Have You Used? None Information not available 03/18/2020 Do You Or Have You Ever Used E-cigarettes Or Vape? Never Used Electronic Cigarettes [email or web address] Information not available 03/18/2020 What Was The Date Of Your Most Recent Tobacco Screening? 03/10/2020 [email or web address] Information not available 03/18/2020 Do You Or Have You Ever Used Smokeless Tobacco? Never Used Smokeless Tobacco [email or web address] Information not available 03/18/2020 How Much Tobacco Do You Smoke? No Information not available 03/18/2020 Sex: Unknown Functional Status Question Answer Note LastModified by Organizat ion Details LastModified Time Do you have difficulty walking or climbing stairs? No Information not available 09/13/2022 Are you able to walk? YESWOREST Information not available 09/13/2022 Are you able to care for yourself? Yes Information not available 09/13/2022 Do you have difficulty dressing or bathing? No Information not available 09/13/2022 What is your exercise level? Occasional [email or web address] Information not available 03/18/2020 Mental Status None recorded. Family History Relationship Description Onset Age of this Age Resolved Age Notes LastModified by Organization Details LastModified Time Father Diabetes mellitus Not available 03/18 17:40:06 Father Myocardial infarction [email or web address] Not available 02/2024 21:08:16 Father Hypertensive disorder [email or web address] Not available 09/20 21:08:28 Brother Myocardial infarction [email or web address] Not available 02/2024 21:08:16 Medical History Condition Response Allergies (Food, seasonal, environmental ) N Other N Drug/Latex Allergies/Reactions N Breast Cancer N Blood Transfusion N Lung Disease N Dermatologic Disorders N Defects or Inherited Disease N Breast Problem N Gestational Diabetes N Hematologic disorders N Anesthesia Complications N History of STI N Deep Vein Thrombosis N Polycystic ovary syndrome N Anxiety Disorder Y Autoimmune disease N Arthritis N Polyps N Infertility N History of abnormal pap N Acid Reflux (GERD) N Cancer N Varicosities N Stroke N Neurologic/Epilepsy N Endometriosis N High Cholesterol N Headaches N Fibromyalgia N Kidney Disease Y Heart Problems Y Thyroid Problems Y Kidney or Bladder Problems N GI Problems Y Eating Disorder N Anemia N Art (IVF or FET) N Psychiatric Illness Y Ovarian Cancer N Diabetes N Pulmonary (TB, Asthma) N Hepatitis/Liver Disease N No Past Medical History N Eczema N Urinary Tract Infection N Abuse/Domestic Violence N Asthma N Trauma/Violence N Depression/ depression Y Heart Disease N Pre-Eclampsia N Hypertension N Osteoporosis N Thrombophilias N Gynecological History Statement/Question Response Date of Last Mammogram Date of LMP 08/14/2007 STIs/STDs Y HPV Vaccine N 10 Current Control Method Menopause If Post Menopausal, Age at Menopause 38 Date of Last Colonoscopy 11/12/2021 Sexually Active? N Date of DEXA bone scan Date of Last Pap Smear 09/13/2022 Sexual Problems? N Desired Control Method Sterilizati on LMP Approximate Obstetrics History GPAL:G 2 P 2 0 0 2 Type Value Full Term 2 Living 2 Total 2 Past Encounters Encounter ID Performer Location Encounter Start Date Encounter Closed Date Diagnosis/Indication Diagnosis SNOMED-CT Code Diagnosis ICD10 Code Diagnosis Note [id number] Miley Rodriguez CNM [place] [address],[place] [address] 03/10/2020 16:14:07 03/10/2020 17:37:10 Gynecologic examination 84904484 Z01.419 f/u wwe yearly Fatigue 86260279 R53.83 order labs and fax to her pcp, consent signed [id number] GERSON Berumen [place] [address],[place] [address] 09/13/2022 13:56:38 09/13/2022 15:11:56 Gynecologic examination 87114637 Z01.419 Take Calcium with Vitamin D 12-1500mg daily. Do monthly self breast exams. It is advised to get annual flu shot in the fall and she could obtain at [facility] or [facility]. If you haven't received the Tdap vaccine in the last 10 years you should obtain one as well. Have mammogram yearly, bone density every 2-3 years and colonoscop y every 5-10 years depending on findings and history. Engage in daily exercise of low impact aerobic exercise 45-60 minutes 4-5 times weekly. Avoid tobacco and illicit drugs as well as using moderation with alcohol intake less than 1-2 8 oz beverages daily. This lifestyle behavior pattern will lead to less health conditions and longer life span. If BMI greater than 25 weight watchers or dietary consult advised. Questions have been answered. Patient appears to understand instructio ns, but if you have any further questions call or respond to this email [email or web address] opausalNo hx of abnormal papsPap done todaySTI testing declined, no SA x 6 yearsNeeds to schedule mammogram, encouraged . Has order from PCPNicki ocpy done last yearUTD with PCP [id number] GERSON Berumen [place] [address] [address] 09/21/2023 09:07:51 09/21/2023 11:13:07 Gynecologic examination [id number] Z01.419 WWEpostmen opausalpap due 2025maog glenna order givencolon oscopy UTDroutine labs UTD/PCPRTC in 1 yr or sooner if needed Take Calcium with Vitamin D daily. Do monthly self breast exams. It is advised to get annual flu shot in the fall and she could obtain at [facility] or [facility]. If you haven't received the Tdap vaccine in the last 10 years you should obtain one as well. Have mammogram yearly, bone density every 2-3 years and colonoscop y every 5-10 years depending on findings and history. Engage in daily exercise of low impact aerobic exercise 45-60 minutes 4-5 times weekly. Avoid tobacco and illicit drugs. This lifestyle behavior pattern will lead to less health conditions and longer life span. If BMI greater than 25 dietary consult advised. Questions have been answered. 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 continue f/u with PCP and counselorp recautions reviewed (if thoughts of harming self or others occur call 911/seek help immediatel y) Health Concerns Section Related Observation LastModified by Organization Detai ls LastModified Time None Recorded Concern Status LastModified by Organization Details LastModified Time None Recorded Advance Directives Directive None Recorded Payers Encounter Date Sequence Insurance Name Policy Number Policy Cheema Covered Member ID Cheema Member ID Guarantor Name 03/10/2020 1 [facility] - DOS PRIOR TO 2021 (MEDICAID REPLACEMENT - HMO) Maru Jesus [id number] Maru Lee 09/13/2022 1 [place] [id number] Man Lee [id number] Maru Lee 09/13/2022 1 [place] Maru Lee [id number] Maru Lee 09/21/2023 1 [facility] - DOS ON OR AFTER 21 (MEDICAID REPLACEMENT - HMO) Maru Lee [id number] Maru Lee Notes Date Note Type Note Provider Name and Address Organization Details Recorded Time 03/10/2020 text/html Annual GYNReport ed bypatient.Notes:well ness exam, no cycle in about 10 years, tubal ligation, unable to complete sentences, very disorganized in thought process says its because her dr wont refill her Adderral, complaines of ringing in her ears and a headache, not sexually active, diagnosed with lichens and was on clobetosol but ran out Miley Rodriguez, [place] [address], [place], [address], [facility] 03/10/2020 17:36:08 09/13/2022 text/html Annual Interior Horticulturist Post-MenopausalRepor brayden bypatient.Menopausal Symptoms:no menopausal symptoms; normal vaginal lubrication Vaginal Bleeding:history of menopause having occurred; no history of post menopausal bleeding Urinary Symptoms:no hematuria; no incontinence; no nocturia; no urinary frequency Vulva:no genital lesion; no vulvar atrophy Vagina:normal vaginal discharge; no vaginal atrophy Breast:no breast lump; no nipple discharge; no breast pain Sexual Complaints:no sexual complaints Psychological Symptoms:no depression; no anxiety Preventive Measures:encourage regular mammograms starting age 40; encourage self breast examination; encourage regular exercise; encourage no tobacco use; needs to schedule mammogram; history of recent colonoscopy GERSON [facility] [address], [place], [address], [facility] 09/13/2022 14:59:39 09/21/2023 text/html Annual Interior Horticulturist Post-MenopausalRepor brayden bypatient.Menopausal Symptoms:no menopausal symptoms; normal vaginal lubrication Vaginal Bleeding:history of menopause having occurred; no history of post menopausal bleeding Urinary Symptoms:no hematuria; no incontinence; no nocturia; no urinary frequency Vulva:no genital lesion; no vulvar atrophy Vagina:normal vaginal discharge; no vaginal atrophy Breast:no breast lump; no nipple discharge; no breast pain Sexual Complaints:no sexual complaints Psychological Symptoms:no depression; no anxiety Preventive Measures:encourage regular mammograms starting age 40; encourage self breast examination; encourage regular exercise; encourage no tobacco use; mammogram performed within the past yearNotes:postmenopa usalno h/o abnormal papslast pap 09/13/2022 - normalmammogram last many years ago per ptcolonoscopy UTDh/o open heart surgery in 2021 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 She is going to have to have another procedure soonDepression/anxie ty - follows with PCP and counselor, seeing them tomorrow. No thoughts of harming self or others ever. She is very nervous about her upcoming procedure. Mary Carter, [place] [address], [place], [address], [facility] 09/21/2023 11:11:17 OBGyn Episode Ob Episode Information Episode Created Date Number of Fetuses Patient Bloodtype Patient rh Status Prepregnancy Weight lbs Domestic Partner Domestic Partner Phone Father Name Aerospace Project Engineer Status 03/18/20 20 1 CLOSED Fetus Data First Name Last Name Admitted to NICU Weight (g) Sex Living Outcome Pediatric Complications Fetus ID Race Codes Race Delivery Type 3486.76 1704 F Full Term [id number] Primary Mahendra Calculation Initial Mahendra Date Initial Exam Date Initial Exam Provider Initial Ultrasound Date Last Menstrual Period Date Ultra Sound Weeks Gestation 0 Eighteen To Twenty Week Mahendra Update Ultra Sound Date Fundal Height At Umbil Quickening Date Ultra Sound Latest Weeks Gestation Final Mahendra Confirmed By Final Mahendra Confirmed Date Final Mahendra Date Ultra Sound Latest Days Gestation 0 0 Menstrual History Last Menstrual Date Menses Monthly On Bcp Conception Prior Menses Frequency Hcg Plus Date Menarche Onset Age Delivery Information Delivery Date Delivery Type Labor Anesthesia Weeks Gestation Incision Type Labor Labor Length Hrs Delivered By Post Complications Tubal Sterilization Discharge Date Comments 1 Discharge Information Feeding Method Contraceptive Method Maternal HG B and HCT Levels Ob Episode Information Episode Created Date Number of Fetuses Patient Bloodtype Patient rh Status Prepregnancy Weight lbs Domestic Partner Domestic Partner Phone Father Name Aerospace Project Engineer Status 03/18/20 20 1 CLOSED Fetus Data First Name Last Name Admitted to NICU Weight (g) Sex Living Outcome Pediatric Complications Fetus ID Race Codes Race Delivery Type 3231.84 3 F Full Term [id number] Vaginal Delivery Mahendra Calculation Initial Mahendra Date Initial Exam Date Initial Exam Provider Initial Ultrasound Date Last Menstrual Period Date Ultra Sound Weeks Gestation 0 Eighteen To Twenty Week Mahendra Update Ultra Sound Date Fundal Height At Umbil Quickening Date Ultra Sound Latest Weeks Gestation Final Mahendra Confirmed By Final Mahendra Confirmed Date Final Mahendra Date Ultra Sound Latest Days Gestation 0 0 Menstrual History Last Menstrual Date Menses Monthly On Bcp Conception Prior Menses Frequency Hcg Plus Date Menarche Onset Age Delivery Information Delivery Date Delivery Type Labor Anesthesia Weeks Gestation Incision Type Labor Labor Length Hrs Delivered By Post Complications Tubal Sterilization Discharge Date Comments 4 Discharge Information Feeding Method Contraceptive Method Maternal HG B and HCT Levels
--- OUTSIDE RECORDS SUMMARY | 2024-11-19 18:17 | XMS_ITS | Clinical Summary ---
Author Organization [facility] Address [facility]ly [facility] [place] [address] Care Team Providers Care Roving Weight Gauger Name Role Phone Candi Pereira PA-C Primary Care Provider [phone] Allergies Active Allergy Reactions Criticality Noted Date Comments Nsaids Tinnitus 05/29/2018 Medications acetaminophen 500 MG tablet Take 500-1,000 mg by mouth every 4 (four) hours. 0 Active buPROPion XL 150 MG 24 hr tablet Take 150 mg by mouth every morning. 0 Active buPROPion XL 300 MG 24 hr tablet Take 300 mg by mouth every morning. 0 Active DULoxetine 60 MG capsule Take 60 mg by mouth daily. 0 Active guanFACINE 1 MG tablet 0 Active hydrOXYzine 50 MG capsule Take 50 mg by mouth as needed. 0 Active levothyroxine 112 MCG tablet Take 112 mcg by mouth daily. 1 Active DULoxetine 20 MG capsule Take 20 mg by mouth daily. Active levothyroxine 137 MCG tablet Take 137 mcg by mouth every morning. Active traZODone 150 MG tablet Take 150 mg by mouth nightly at bedtime. Active Cholecalciferol (VITAMIN D3) 50 MCG (1999 [place]) Tab Take by mouth as needed. Active diclofenac sodium (VOLTAREN) 1 % gel Apply topically 4 (four) times daily. Active famotidine 20 MG tablet 1 Active pravastatin 10 MG tablet 1 Active topiramate 100 MG tablet 1 Active Active Problems Problem Noted Date Diagnosed Date Decreased GFR 12/07/2020 Other specified hypothyroidism 12/07/2020 Depression 11/03/2020 History of kidney problems 11/03/2020 Abdominal pain, generalized 01/19/2010 Chest pain 01/18/2010 Family History Medical History Relation Comments Diabetes Father Sudden Paternal Uncle Relation Status Comments Father Paternal Uncle Other Suicide Social History Tobacco Use Types Packs/Day Years Used Date Smoking Tobacco: Never Smokeless Tobacco: Never Tobacco Cessation:Counseling Given: No Alcohol Use Standard Drinks/Week Comments No 0 (1 standard drink = 0.6 oz pur e alcohol) AUDIT-C Answer Date Recorded Frequency of Alcohol Consumption Never 05/29/2018 Average Number of Drinks Not on file 018 Frequency of Binge Drinking Not on file 05/14 Comments No Sex and Gender Information Value Date Recorded Sex Assigned at Not on file Legal Sex Female 11:28 AM CDT Gender Identity Not on file Sexual Orientation Not on file Last Filed Vital Signs Vital Sign Reading Time Taken Comments Blood Pressure 118/72 10/11/2021 2:16 PM DAIRY LAB TECHNICIAN Pulse 98 10/11/2021 2:16 PM DAIRY LAB TECHNICIAN Temperature 36.4 C (97.6 F) 10/11/2021 2:16 PM DAIRY LAB TECHNICIAN Respiratory Rate 18 10/11/2021 2:16 PM DAIRY LAB TECHNICIAN Oxygen Saturation 98% 10/11/2021 2:16 PM DAIRY LAB TECHNICIAN Inhaled Oxygen Concentration - - Weight 76.7 kg (169 lb) 10/11/2021 2:16 PM DAIRY LAB TECHNICIAN Height 154.9 cm (5' 1 ) 10/11/2021 2:16 PM DAIRY LAB TECHNICIAN Body Mass Index 31.93 10/11/2021 2:16 PM DAIRY LAB TECHNICIAN Plan of Treatment Health Maintenance Due Date Last Done Comments Cervical Cancer Screening Pa p Smear (Age 30 to 64) Every 3 Years 1968 Colorectal Cancer Screening Colonoscopy (10 Years) 1968 Annual Physical 1971 Hepatitis C 1986 DTaP, Tdap and Td Vaccines ( 1 - Tdap) 1987 Hepatitis B Vaccines (1 of 3 - 19+ 3-dose series) 1987 Cervical Cancer Screening Pa p with HPV Testing (Age 30 to 64) Every 5 Years 1998 Cervical Cancer Screening with HPV 1998 Mammogram Screening 2008 Zoster Vaccines (1 of 2) 2018 COVID-19 Vaccine (2023-2 5 season) 2024 Meningococcal B Vaccine Aged Out No l onger eligible based on patient's age to complete this topic Meningococcal Vaccine Aged Out No reagan jj eligible based on patient's age to complete this topic Pneumococcal Vaccine: Pediat rics (0 to 5 Years) and At-Risk Patients (6 to 64 Years) Aged Out No longer eligible b ased on patient's age to complete this topic RSV Immunizations Under 20 Months Aged Out No longer eligible based on patient's age to complete this topic Insurance [facility] MEDICAID Care Teams Roving Weight Gauger Relationship Specialty Start Date End Date Candi Pereira PA-C [address] [place] [id number] PCP - General NURSE PRACTITIONER 06/07/21
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
[2024-11-19] MEDS: HYDROcodone/acetaminophen (*CRX) 5-325 MG TABLET 1 TAB PO (19:04)
[2024-11-19 19:54] LABS: Influenza A QL RT-PCR Negative (Negative); Influenza B QL RT-PCR Negative (Negative); RSV RNA, RT-PCR Negative (Negative); SARS-CoV-2 RNA PCR Negative (Negative)
--- OUTSIDE RECORDS SUMMARY | 2024-11-19 20:23 | XMS_ITS | Encounter Summary ---
Author Organization [facility] Address [address] [place] [address] Care Team Providers Care Arrow Point Attacher Name Role Phone Unknown, Provider Primary Care Provider Unavaila ble Reason for Visit * Reason Onset Date Comments Nurse Only 06/13/2023 Encounter Details Date Type Department Care Team (Late st Contact Info) Description 06/13/2023 Telephone [facility] - Centralized Scheduling [address] [place] [address] Adolfo Costello MD [address] [facility] [place] [address] Nurse Only Social History Tobacco [...] speak to office about disability pt stated 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 splitting 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 called her yesteday and she could not answer questions properly, pt is scheduled for 07/2023 documented in this encounter Plan of Treatment Upcoming Encounters Date Type Department Care Team (Late st Contact Info) Description 01/21/2025 11:00 AM CDT Office Visit [facility] - Ophthalmology [address] [place] [address] Abisai Stoll MD [address] [place] [address] [place] [address] documented as of this encounter Visit Diagnoses Not on filedocumented in this encounter Care Teams Arrow Point Attacher Relationship Specialty Start Date End Date Unknown, Provider PCP - General 09/26/22 documented as of this encounter
--- OUTSIDE RECORDS SUMMARY | 2024-11-19 20:23 | XMS_ITS | Referral Summary ---
Author Organization [facility] [address] Address [address] [place] [address] Care Team Providers Care Grain Farmer Name Role Phone Candi Pereira Primary Care Provider + Tom Mireles DO Unavailable [phone] Ramone Salinas MD Unavailable [phone] Viki Mendoza MD PhD Unavailable [phone] Allergies Active Allergy Reactions Criticality Noted Date [...] 1 tablet (112 mcg total) by mouth pastry wrapper before breakfast 10/03/19 23 Active pravastatin (PRAVACHOL) [...] UE PT/OT rec rehab - [facility] in [place] has accepted pending insurance authorization Spoke to [...] than three times a week 01/27/2022 Attends Temple Services Not on file 01/27 Active Member [...] on file Legal 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 Gender Identity Not on file Sexual Orientation [...] on file Medical Devices Implanted Type Area Lineman A Class Device Identifier Shelf Expiration Date Model / Serial / Lot [employer] Sternalock Prabhakar 8 Hole Sternum Plate Bone 2.4 Mm Screw 73-2623 - [id number] Implanted:Qty: 1 on 11/06/2023 by Viki Mendoza MD PhD at [facility] [employer] 73-2623 / / [employer] Plate Bone Sternalock 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 Sp-6335 - [id number] Implanted:Qty: 1 on 11/06/2023 by Viki Mendoza MD PhD at [facility] [employer] SP-[id number] / / [employer] Sternalock Prabhakar 2.4mm 10mm Self Drill Lock Sternum Cancellous 73-5750 - [id number] Implanted:Qty: 1 on 11/06/2023 by Viki Mendoza MD PhD at [facility] [employer] 73-2410 / / [employer] Sternalock Prabhakar 2.4mm 12mm Self Drill Lock Sternum Cancellous 73-2412 - [id number] Implanted:Qty: 12 on 11/06/2023 by Viki Mendoza MD PhD at [facility] [employer] 73-2412 / / [employer] Sternalock Prabhakar 2.4mm 14mm Self Drill Lock Sternum Cancellous 73-2414 - [id number] Implanted:Qty: 8 on 11/06/2023 by Viki Mendoza MD PhD at [facility] [employer] 73-2414 / / [employer] Sternalock Prabhakar 2.4mm 16mm Self Drill Lock Sternum Cancellous 73-2416 - [id number] Implanted:Qty: 6 on 11/06/2023 by Viki Mendoza MD PhD at [facility] [employer] 73-2416 / / [employer] Sternalock Prabhakar 2.7mm 12mm Self Drill Lock Sternum Cancellous [id number] - [id number] Implanted:Qty: 3 on 11/06/2023 by Viki Mendoza MD PhD at [facility] [employer] 73-2712 / / [employer] Sternalock Prabhakar 6 Hole Sternum Hexagon Plate Bone Primary Closure Sp-2890 - [id number] Implanted:Qty: 1 on 11/06/2023 by Viki Mendoza MD PhD at [facility] N/A: Sternum [employer] SP-[id number] / / [employer] Sternalock Prabhakar 4 Hole 2 Side Low Profile Sternum 100d L Plate 73-3003 - [id number] Implanted:Qty: 1 on 11/06/2023 by Viki Mendoza MD PhD at [facility] N/A: Sternum [employer] [id number] / / [employer] 2.4mm 14mm Self Drill Lock Rib Prebent Screw Bone Titanium 76-1297 - [id number] Implanted:Qty: 1 on 04/03/2024 by Viki Mendoza MD PhD at [facility] N/A: Sternum [employer] 76-2602 / / [employer] Ribfix Prabhakar 2.4mm 10mm Self Tap Lock Screw Bone 76-3040 - [id number] Implanted:Qty: 8 on 04/03/2024 by Viki Mendoza MD PhD at [facility] N/A: Sternum [employer] 76-2410 / / [employer] Screw Bone St Locking Ribfix Prabhakar 2.4x12mm Ti 76-3902 - [id number] Implanted:Qty: 3 on 04/03/2024 by Viki Mendoza MD PhD at [facility] N/A: Sternum [employer] 76-2412 / / Insurance [facility] [place] [address] [address] [place] [address] Advance Directives For more information, please contact: [phone] * Full Code (Latest Code Status on File) Date Activated Date Inactivated Comments 04/03/2024 1:13 PM 04/05/2024 3:26 PM * Full Code Date Activated Date Inactivated Comments 11/07/2023 3:06 AM 11/14/2023 11:20 PM * Full Code Date Activated Date Inactivated Comments 01/26/2022 11:21 AM 01/31/2022 5:07 PM Care Teams Grain Farmer Relationship Specialty Start Date End Date Candi Pereira PA PCP - General Physician Waiter/Waitress Cocktail Lounge 02/18/21 Tom Mireles DO [address] [place] [address] Referring Physician Internal Medicine 07/07/21 Ramone Salinas MD [address] [facility] [id number] [place] [address] Surgeon Cardiothoracic Surgery 11/14/23 Viki Mendoza MD PhD [address] [place] [address] Consulting Physician Plastic Surgery 11/14/23
--- OUTSIDE RECORDS SUMMARY | 2024-11-19 20:23 | XMS_ITS | Clinical Summary ---
Author Organization [facility] Address [facility] [place] [address] Care Team Providers Care Autotransfusionist Name Role Phone Candi Pereira PA-C Primary Care Provider [phone] Allergies Active Allergy Reactions Criticality Noted Date [...] Comments Blood Pressure 118/72 10/11/2021 2:16 PM YARN CARRIER Pulse 98 10/11/2021 2:16 PM YARN CARRIER Temperature 36.4 C (97.6 F) 10/11/2021 2:16 PM YARN CARRIER Respiratory Rate 18 10/11/2021 2:16 PM YARN CARRIER Oxygen Saturation 98% 10/11/2021 2:16 PM YARN CARRIER Inhaled Oxygen Concentration - - Weight 76.7 kg (169 lb) 10/11/2021 2:16 PM YARN CARRIER Height 154.9 cm (5' 1 ) 10/11/2021 2:16 PM YARN CARRIER Body Mass Index 31.93 10/11/2021 2:16 PM YARN CARRIER Plan of Treatment Health Maintenance Due Date [...] patient's age to complete this topic Insurance [facility] MEDICAID Care Teams Autotransfusionist Relationship Specialty Start Date End Date Candi Pereira PA-C [address] [place] [address] PCP - General NURSE PRACTITIONER 06/07/21
--- OUTSIDE RECORDS SUMMARY | 2024-11-19 20:23 | XMS_ITS | Encounter Summary ---
Author Organization [facility] Address [address] [place] [address] Phone Care Team Providers Care Billing And Insurance Coordinator Name Role Phone Candi Pereira Primary Care Provider + Tom Mireles DO Unavailable [phone] Ramone Salinas MD Unavailable [phone] Viki Mendoza MD PhD Unavailable [phone] Encounter Details Date Type Department Care Team (Late st Contact Info) Description 08/22/2023 Orders Only [facility] PMR [phone] Scanning, Provider Social History Tobacco Use Types [...] than three times a week 01/27/2022 Attends Scientologist Services Not on file 01/27 Active Member [...] on file 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 Gender Identity Not on file Sexual Orientation [...] on filedocumented in this encounter Care Teams Billing And Insurance Coordinator Relationship Specialty Start Date End Date Candi Pereira PA PCP - General Physician Communications Specialist 02/18/21 Tom Mireles DO [address] [facility] [address] [place] [address] Referring Physician Internal Medicine 07/07/21 Ramone Salinas MD [address] [facility] [id number] [place] [address] Surgeon Cardiothoracic Surgery 11/14/23 Viki Mendoza MD PhD [address] [place] [address] Consulting Physician Plastic Surgery 11/14/23 documented as of this encounter
--- OUTSIDE RECORDS SUMMARY | 2024-11-19 20:23 | XMS_ITS | Clinical Summary ---
Author Organization [facility] Address [address] [place] [address] Care Team Providers Care Vocational Coordinator Name Role Phone Unknown, Provider Primary Care Provider Unavaila ble Source Comments [facility],non-owned Affiliates and Associated Physician Practices is amultiple site organization consisting of ambulatory clinics and hospital sitesin [place], [place], [place] and [place]. This disclosure is being madepursuant to the Care Everywhere program and may not contain all information available regarding this patient. Last updated 18.[facility] Allergies Active Allergy Reactions Criticality Noted Date [...] Office Visit [facility] [address] [place] [address] [phone] Abisai Stoll MD [address] [place] [address] [place] [address] Health Maintenance Due Date Last [...] this topic Medical Devices Implanted Type Area Community Development Worker Device Identifier Shelf Expiration Date Model / Serial / Lot Tecnis Eyhance Iol Implanted:Qty: 1 on 11/28/2022 by Adolfo Costello MD at [facility] Right: Eye [employer] 02/26/2025 [id number] / [id number] / [id number] Tecnis Eyhance Iol +22.5d Implanted:Qty: 1 on 12/19/2022 by Adolfo Costello MD at [facility] Left: Eye [employer] 08/13/2025 [id number] / [id number] / 0000 Procedures Procedure Name Priority Date/Time Associated Diagnosis Comments LIPID PROFILE Timed 01/19/2010 3:50 AM CDT Chest Pain from Last 3 Months or Most Recently Relevant to Health Maintenance Results * LIPID PROFILE (01/19/2010 3:50 AM CDT) Cholesterol 169 <200 mg/dl [facility] Triglycerides 107 <200 mg/dl [facility] HDL Cholesterol 50 >35 mg/dl [facility] LDL Direct 86.11 <130 mg/dl [facility] BLOOD SPECIMEN / Unknown 01/19/2010 3:50 AM CDT 01/19/2010 8:54 AM CDT Conrad Santos Jr., MD LAB - CHEMISTRY ORDERABLES [facility] [address] [place] [address] from Last 3 Months or Most Recently Relevant to Health Maintenance Advance Directives * Full Code (Latest Code Status on File) Date Activated Date Inactivated Comments 01/20/2010 1:25 PM 01/21/2010 11:52 PM * Full Code Date Activated Date Inactivated Comments 01/19/2010 3:17 AM 01/20/2010 1:25 PM Care Teams Vocational Coordinator Relationship Specialty Start Date End Date Unknown, Provider PCP - General 09/26/22
--- OUTSIDE RECORDS SUMMARY | 2024-11-19 20:23 | XMS_ITS | Clinical Summary ---
Author Organization [facility] [address] Address [address] [place] [address] Care Team Providers Care Bearing Maker Name Role Phone Candi Pereira Primary Care Provider + Tom Mireles DO Unavailable [phone] Ramone Salinas MD Unavailable [phone] Viki Mendoza MD PhD Unavailable [phone] Allergies Active Allergy Reactions Criticality Noted Date [...] 1 tablet (112 mcg total) by mouth site inspector before breakfast 10/03/19 23 Active pravastatin (PRAVACHOL) [...] UE PT/OT rec rehab - [facility] in [place] has accepted pending insurance authorization Spoke to [...] than three times a week 01/27/2022 Attends [employer] Not on file 01/27 Active Member [...] on file Legal Sex Female 7:17 AM [employer] Gender Identity Not on file Sexual Orientation [...] this topic Medical Devices Implanted Type Area Health And Safety Representative Device Identifier Shelf Expiration Date Model / Serial / Lot [employer] Sternalock Prabhakar 8 Hole Sternum Plate Bone 2.4 Mm Screw 73-5413 - [id number] Implanted:Qty: 1 on 11/06/2023 by Viki Mendoza MD PhD at [facility] [employer] 73-2623 / / [employer] Plate Bone Sternalock 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 Sp-3525 - [id number] Implanted:Qty: 1 on 11/06/2023 by Viki Mendoza MD PhD at [facility] [employer] SP-[id number] / / [employer] Sternalock Prabhakar 2.4mm 10mm Self Drill Lock Sternum Cancellous 73-2410 - [id number] Implanted:Qty: 1 on 11/06/2023 by Viki Mendoza MD PhD at [facility] [employer] 73-2410 / / [employer] Sternalock Prabhakar 2.4mm 12mm Self Drill Lock Sternum Cancellous 73-2412 - [id number] Implanted:Qty: 12 on 11/06/2023 by Viki Mendoza MD PhD at [facility] [employer] 73-2412 / / [employer] Sternalock Prabhakar 2.4mm 14mm Self Drill Lock Sternum Cancellous 73-2414 - [id number] Implanted:Qty: 8 on 11/06/2023 by Viki Mendoza MD PhD at [facility] [employer] 73-2414 / / [employer] Sternalock Prabhakar 2.4mm 16mm Self Drill Lock Sternum Cancellous 73-2416 - [id number] Implanted:Qty: 6 on 11/06/2023 by Viki Mendoza MD PhD at [facility] [employer] 73-2416 / / [employer] Sternalock Prabhakar 2.7mm 12mm Self Drill Lock Sternum Cancellous 73-9492 - [id number] Implanted:Qty: 3 on 11/06/2023 by Viki Mendoza MD PhD at [facility] [employer] 73-2712 / / [employer] Sternalock Prabhakar 6 Hole Sternum Hexagon Plate Bone Primary Closure Sp-2890 - [id number] Implanted:Qty: 1 on 11/06/2023 by Viki Mendoza MD PhD at [facility] N/A: Sternum [employer] SP-2890 / / [employer] Sternalock Prabhakar 4 Hole 2 Side Low Profile Sternum 100d L Plate 73-1113 - [id number] Implanted:Qty: 1 on 11/06/2023 by Viki Mendoza MD PhD at [facility] N/A: Sternum [employer] [id number] / / [employer] 2.4mm 14mm Self Drill Lock Rib Prebent Screw Bone Titanium 76-6192 - [id number] Implanted:Qty: 1 on 04/03/2024 by Viki Mendoza MD PhD at [facility] N/A: Sternum [employer] 76-2602 / / [employer] Ribfix Prabhakar 2.4mm 10mm Self Tap Lock Screw Bone 76-3260 - [id number] Implanted:Qty: 8 on 04/03/2024 by Viki Mendoza MD PhD at [facility] N/A: Sternum [employer] 76-2410 / / [employer] Screw Bone St Locking Ribfix Prabhakar 2.4x12mm Ti 76-2412 - [id number] Implanted:Qty: 3 on 04/03/2024 by Viki Mendoza MD PhD at [facility] N/A: Sternum [employer] 76-3756 / / Insurance [facility] BLUE [place] [address] [place] [address] Advance Directives For more information, please contact: [phone] * Full Code (Latest Code Status on File) Date Activated Date Inactivated Comments 04/03/2024 1:13 PM 04/05/2024 3:26 PM * Full Code Date Activated Date Inactivated Comments 11/07/2023 3:06 AM 11/14/2023 11:20 PM * Full Code Date Activated Date Inactivated Comments 01/26/2022 11:21 AM 01/31/2022 5:07 PM Care Teams Bearing Maker Relationship Specialty Start Date End Date Candi Pereira PA PCP - General Physician Senior Oracle Database Developer 02/18/21 Tom Mireles DO [address] [place] [address] Referring Physician Internal Medicine 07/07/21 Ramone Salinas MD [address] [facility] [address] [place] [address] Surgeon Cardiothoracic Surgery 11/14/23 Viki Mendoza MD PhD [address] [place] [address] Consulting Physician Plastic Surgery 11/14/23
--- OUTSIDE RECORDS SUMMARY | 2024-11-19 20:24 | XMS_ITS | Clinical Summary ---
Author Organization [facility] Address [address] [place] [address] Phone Care Team Providers Care Antenna Installer Name Role Phone Unavailable Primary Care Provider [...] Description 12/26/2024 12:40 PM CDT Office Visit [facility] [address] [facility] [address] [place] [address] Pancho Samaniego MD [address] [facility] [address] [place], [place] [id number] Health Maintenance Due Date Last Done Comments Pneumococcal PPSV23 Highest Risk Adult (1 of 3 - PCV13 ) 1987 Influenza Vaccine (Season Ended) 2025
[2024-11-19 20:50] VITALS: BP 124/71; PULSE 76; RESP 18; O2SAT 95
[2024-11-19] MEDS: oxyCODONE HCL (*CRX) 5 MG TAB IR PO (21:15)
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
== END 2024-11-19 22:20 | disposition home or self-care (01) ==
PROVIDERS: Physician Assistant; Emergency Provider Physician Assistant; PCP Physician Assistant
DX: S52.531A Colles' fracture of right radius, initial encounter for closed fracture (principal); S52.611A Displaced fracture of right ulna styloid process, initial encounter for closed fracture; J06.9 Acute upper respiratory infection, unspecified; Z20.822 Contact with and (suspected) exposure to COVID-19; I50.9 Heart failure, unspecified; K21.9 Gastro-esophageal reflux disease without esophagitis; I25.10 Atherosclerotic heart disease of native coronary artery without angina pectoris; F41.9 Anxiety disorder, unspecified; E04.9 Nontoxic goiter, unspecified; W01.0XXA Fall on same level from slipping, tripping and stumbling without subsequent striking against object, initial encounter
CPT/HCPCS: 29125; 73110; 87637; 99284; A4565; A9270

== ENCOUNTER 2024-12-13 01:28 | Day surgery (SDC) | payer OTHER, SELFPAY ==
[2024-12-12 17:20] VITALS: BMI 32.3
--- NOTE | 2024-12-12 17:20 | SUR.PREOP ---
Report to the Outpatient Waiting Room, entrance under the green pavilion located off [facility], at time on date . Planned Procedure Time: .? Time changes happen often and if your time is changed the preop area will call you the afternoon before. - You and your visitor will be asked to self-screen and do not enter if you have any COVID symptoms. Please call surgeon if you need to reschedule. - A mask is optional within the hospital at this time. Patients may have clear liquids (water, carbonated beverages, clear teas, apple juice) until 3 hours prior to surgery with a maximum of 20 ounces. - No food from midnight until time of surgery and no smoking, or chewing tobacco (or any form of nicotine). No chewing gum, candy or mints. - Infants may have breast milk until 4 hours before surgery, infant formula 6 hours prior to surgery. - Children will be allowed to drink immediately following surgery.? If applicable, please bring a bottle or sippy cup to assist with drinking. Juice, water, soda, and popsicles are readily available.? For infants on formula, please bring formula the day of surgery.? Pacifiers are allowed. Take only the following medications with a SIP of water on the morning of surgery: DO NOT STOP ANY OF YOUR OTHER PRESCRIPTION MEDICATIONS PRIOR TO SURGERY EXCEPT THE FOLLOWING Hold all vitamins and supplements for 3 days per anesthesiologist. Medications to discontinue per physician Date to take last dose Please no make-up, nail surinamese, hairspray, perfume, deodorant, or body powder the day of surgery.? No jewelry (including any body piercings) or valuables the day of surgery, leave them at home.? Please take a shower or bath the night before, or the morning of, surgery with an antibacterial soap.? Wear comfortable, loose fitting clothing.? Children are encouraged to wear pajamas. - Jewelry must be removed prior to entering the operating room.? Rings and piercings that are not removed may be cut off. - The hospital will not accept responsibility for valuables.? - Please leave all valuables, including medications, at home the day of surgery. If you are going home after surgery, a licensed trash collector truck driver must drive you home.? - NO public transportation without another adult if you receive anesthesia. - We recommend that an adult stay with you for 24 hours following discharge. - We also recommend that you do not drive, make important decision, drink alcoholic beverages, or take any drugs that were not prescribed by your health care provider for at least 24 hours after your discharge time. For Pediatric surgeries, we recommend two adults accompany the child home. Follow any additional instructions given to you from your surgeon. Telephone instructions given to and asked if any additional questions and then verbalized understanding. Patient advised to call surgeon office or pre surgery nurse liaison [phone] if any additional questions.
--- NOTE | 2024-12-12 17:32 | SUR.PREOP ---
Report to the Outpatient Waiting Room, entrance under the green pavilion located off [facility], at time 8:00a.m. on date 12/13/2024. Planned Procedure Time: 10:00a.m..? Time changes happen often and if your time is changed the preop area will call you the afternoon before. - You and your visitor will be asked to self-screen and do not enter if you have any COVID symptoms. Please call surgeon if you need to reschedule. - A mask is optional within the hospital at this time. Patients may have clear liquids (water, carbonated beverages, clear teas, apple juice) until 3 hours prior to surgery with a maximum of 20 ounces. - No food from midnight until time of surgery and no smoking, or chewing tobacco (or any form of nicotine). No chewing gum, candy or mints. Take only the following medications with a SIP of water on the morning of surgery: hydrocodone-acetaminophen, duloxetine, levothyroxine DO NOT STOP ANY OF YOUR OTHER PRESCRIPTION MEDICATIONS PRIOR TO SURGERY EXCEPT THE FOLLOWING Hold all vitamins and supplements for 3 days per anesthesiologist. Medications to discontinue per physician vitamins and supplements Date to take last dose MASSIEL (12/12/2024) Please no make-up, nail omani, hairspray, perfume, deodorant, or body powder the day of surgery.? No jewelry (including any body piercings) or valuables the day of surgery, leave them at home.? Please take a shower or bath the night before, or the morning of, surgery with an antibacterial soap.? Wear comfortable, loose fitting clothing.? Children are encouraged to wear pajamas. - Jewelry must be removed prior to entering the operating room.? Rings and piercings that are not removed may be cut off. - The hospital will not accept responsibility for valuables.? - Please leave all valuables, including medications, at home the day of surgery. If you are going home after surgery, a licensed courtesy bus driver must drive you home.? - NO public transportation without another adult if you receive anesthesia. - We recommend that an adult stay with you for 24 hours following discharge. - We also recommend that you do not drive, make important decision, drink alcoholic beverages, or take any drugs that were not prescribed by your health care provider for at least 24 hours after your discharge time. For Pediatric surgeries, we recommend two adults accompany the child home. Follow any additional instructions given to you from your surgeon. Telephone instructions given to Maru Lee and asked if any additional questions and then verbalized understanding. Patient advised to call surgeon office or pre surgery nurse liaison [phone] if any additional questions.
[2024-12-13] VITALS (7 sets, daily range): BP systolic 111–144; BP diastolic 67–94; PULSE 81–97; RESP 12–26; TEMP 36.1–36.4; O2SAT 92–98; BMI 32.6
--- NOTE | ~2024-12-13 | XR_ITS ---
EXAMINATION: XR surgery orthopedic DATE: 12/13/2024 10:46 INDICATION: ORIF right wrist fracture TECHNIQUE: 4 fluoroscopic images of the right wrist were obtained during procedure performed by Dr. Alfonzo cunningham. Radiologist was not present for the imaging or procedure. The amount of fluoroscopy time used during this procedure was 0.7 minutes. Total DAP was 0.12 Gycm^2. COMPARISON: 12/11/2024 FINDINGS: Interval open reduction and internal fixation of the previously noted extra articular fracture of the distal metaphyseal region of the right radius. The fracture is now in improved alignment with 13 deg noe dorsal tilt of the distal articular surface. Ulnar styloid avulsion fracture remains nondisplace d without fixation. No new fractures identified. 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 Small amount of expected lucent postoperative soft tissue gas. IMPRESSION: 1. Improved alignment post open reduction internal fixation of an extra articular distal right radial fracture. 2. Unchanged nondisplaced ulnar styloid avulsion fracture. Reviewed, dictated and finalized at location A. IMPRESSION: 1. Improved alignment post open reduction internal fixation of an extra articul ar distal right radial fracture. 2. Unchanged nondisplaced ulnar styloid avulsion fracture.
--- OUTSIDE RECORDS SUMMARY | 2024-12-13 01:31 | XMS_ITS | Data Portability ---
Author Organization [facility] [place] Address [address] [place] [address] [place] [address] Care Team Providers Care Wood Polisher Name Role Phone BEVERLY GEMINI Primary Care Provider [phone] [facility] OTHER Assessment Encounter Date Assessment Date Assessment LastModified by Organization Details LastModified Time 03/10/2020 03/10/2020 Annual gynecological exam performed. Patient will come back in a year unless there are new symptoms. [email or web address] Not available 03/10/2020 17:06:44 09/13/2022 09/13/2022 Annual [...] Imaging MAMMO, screening, digital, bilateral 2023 [facility] [address], [place], [address], 4 05:00:58 Medication Orders None recorded. Patient TargetsNo targets recorded. Patient Instructions Encounter Date Encounter Id Patient Instructions Last Modified By Organization Details Last Modified Time 03/10/2020 [id number] Suggest Calcium with Vitamin D if not [...] B12 308 pg/mL 232-12 45 Not Available [facility] ([facility]) [address] [place] [address] Dr Nielson, [place], [address], 03/11/2020 14:38:14 03/10/20 20 03/11/2020 vitam in B12 + folat e, serum or blood folate 11.10 NG/mL >4.59 Not Available [facility] ([facility]) [address] [place] [address] Dr Nielson, [place], [address], 03/11/2020 14:38:14 03/10/20 20 03/11/2020 CBC w/ auto diff WBC 7.0 K/uL 3.8-11 .5 Not Available [facility]) [address] [place] [address] Dr Nielson, [place], [address], 03/11/2020 14:38:14 03/10/20 20 03/11/2020 CBC w/ auto diff red blood cell count (RBC) 4.04 M/mm3 3.60-5 .30 Not Available [facility] ([facility] [employer]) [address] [place] [address] Dr Nielson, [place], [address], 03/11/2020 14:38:14 03/10/20 20 03/11/2020 CBC w/ auto diff hemoglobin (HGB) 12.7 gm/dL 11.5-1 5.5 Not Available [facility] ([facility]) [facility] [address] Nielson, [place], [address], 03/11/2020 14:38:14 03/10/20 20 03/11/2020 CBC w/ auto diff hematocrit (HCT) 37.3 % 35.2-4 6.4 Not Available [facility] ([facility]) [address] [place] [address] Dr Nielson, [place], [address], 03/11/2020 14:38:14 03/10/20 20 03/11/2020 CBC w/ auto diff MCV 92.3 fL 79.0-9 9.0 Not Available [facility] ([facility]) [address] [place] [address] Dr Nielson, [place], [address], 03/11/2020 14:38:14 03/10/20 20 03/11/2020 CBC w/ auto diff MCH 31.4 pg 26.9-3 5.0 Not Available [facility] ([facility]) [address] [place] [address] Dr Nielson, [place], [address], 03/11/2020 14:38:14 03/10/20 20 03/11/2020 CBC w/ auto diff MCHC 34.0 g/dL 30.4-3 4.8 Not Available [facility] ([facility]) [address] [place] [address] Dr Nielson, [place], [address], 03/11/2020 14:38:14 03/10/20 20 03/11/2020 CBC w/ auto diff RDW 44.4 fL 38.6-5 3.8 Not Available [facility] ([facility]) [address] [place] [address] Dr iNelson, [place], [address], 03/11/2020 14:38:14 03/10/20 20 03/11/2020 CBC w/ auto diff platelet count 257 K/cum m 137-39 7 Not Available [facility] ([facility]) [address] [place] [address] Dr Nielson, [place], [address], 03/11/2020 14:38:14 03/10/20 20 03/11/2020 CBC w/ auto diff neutrophils automated 51.2 % 41.0-7 7.0 Not Available [facility] ([facility]) [address] [place] [address] Dr Nielson, [place], [address], 03/11/2020 14:38:14 03/10/20 20 03/11/2020 CBC w/ auto diff lymphocytes automated 34.2 % 14.0-4 8.0 Not Available [facility] ([facility]) [address] [place] [address] Dr Nielson, [place], [address], 03/11/2020 14:38:14 03/10/20 20 03/11/2020 CBC w/ auto diff monocytes automated 9.3 % 4.0-13 .0 Not Available [facility] ([facility]) [address] [place] [address] Dr Nielson, [place], [address], 03/11/2020 14:38:14 03/10/20 20 03/11/2020 CBC w/ auto diff eosinophils automated 4.1 % 0.0-8. 0 Not Available [facility] ([facility]) [address] [place] [address] Dr Nielson, [place], [address], 03/11/2020 14:38:14 03/10/20 20 03/11/2020 CBC w/ auto diff basophils automated 0.9 % 0.0-1. 5 Not Available [facility] ([facility]) [address] [place] [address] Dr Nielson, [place], [address], 03/11/2020 14:38:14 03/10/20 20 03/11/2020 CBC w/ auto diff immature granulocyte automated 0.3 % 0.0-1. 0 Not Available [facility] ([facility]) [address] [place] [address] Dr Nielson, [place], [address], 03/11/2020 14:38:14 03/10/20 20 03/11/2020 T4, free, serum thyroxine free (free T4) 0.87 NG/dL 0.86-1 .76 Not Available [facility] ([facility]) [address] [place] [address] Dr Nielson, [place], [address], 03/11/2020 14:38:15 03/10/20 20 03/11/2020 TSH, serum or plasm a TSH reflex to FT4 12.30 mU/L 0.27-4 .20 high Not Available [facility] ([facility]) [address] [place] [address] Dr Nielson, [place], [address], 03/11/2020 14:38:16 03/10/20 20 03/11/2020 vitam in [...] corre latio n requi red. Not Available [facility] ([facility]) [address] [place] [address] Dr Nielson, [place], [address], 03/11/2020 14:38:16 03/10/20 20 03/13/2020 pap, LB [...] and labor atory findi ngs. See https ://FREEjit wAvant Healthcare [employer]essionals/s ites/ defau lt/fi les/2 018-0 3/AW- 06634 _002_ 01.pd f for fursarah er infor matio n. Test perfo rmed by [facility], d/b/a Mayelin javed, [address], [place] [address] , Paco Hernandez ra, DO, Labor atory [...] and labor atory findi ngs. See https ://Kwaab/s ites/ defau lt/fi les/2 018-0 3/AW- 66747 _002_ 01.pd f for furth er infor nancy n. Test perfo rmed by [employer], d/b/a [employer], [address], [place] [address] , Paco Hernandez ra, DO, Labor atory Direc tor. End of t Techn ical servi raymond provi ded by [facility], d/b/a [employer], [address] [place] [address] Watson Davila MD, Labor ator Dire tor. Case revie wed and diagn osis rende red at [employer], d/b/a [employer], [address] [place] [address] Watson Davila MD, Labor atory Dire tor. CONFI DENTI AL Not Available [facility] ([facility]) [address], [place], [address], 03/13/2020 17:18:56 03/10/20 20 03/13/2020 CT + [...] rmed by [facility] [employer], d/b/a Path[employer], [address], [place] [address] , Paco Hernandez ra, DO, Labor atory Direc tor. Not Available [facility]) [address] [place] [address], [place], [address], 03/13/2020 17:18:56 03/10/20 20 03/13/2020 CT + [...] rmed by [facility] [employer], d/b/a Mayelin roup, [address], [place] [address] , Paco Hernandez ra, DO, Labor atory Direc tor. Not Available [facility]) [address], [place], [address], 03/13/2020 17:18:56 03/10/20 20 03/13/2020 CT + [...] ing error . Test perfo rmed by [employer], d/b/a Mayelin javed, [address], [place] [address] , Paco Hernandez ra, DO, Labor atory Direc tor. Not Available [facility] ([facility]) [address], [place], [address], 03/13/2020 17:18:56 03/10/20 20 03/13/2020 HPV DNA, [...] and labor atory findi ngs. See https ://FREEjit [employer]/s ites/ defjayleen lt/fi les/2 018-0 3/AW- 98528 _002_ 01.pd f for david kochr nhiclifton cassandra. Test perfo rmed by [employer], d/b/a Mayelin javed, [address], [place] [address] , Paco Hernandez ra, DO, Labor atory Dire tor. Not Available [facility]) [address] [facility] [address], [place], [address], 03/13/2020 17:18:57 Result Notes None recorded. Procedures Surgical History Date Name Laterality Status Provider Name and Address Organization Details Recorded Time 12/20/19 23 cataract surgery completed [facility] 09/20/2023 21:09:39 09/13/19 23 Date of Last Pap Smear completed [facility] 09/21/2023 12:51:50 01/17/20 22 open heart surgery completed Mary Carter FLOR [address], [place], [address], [facility] 09/21/2023 11:06:28 11/13/19 22 Date of Last Colonoscopy completed [facility] 09/21/2023 10:27:09 11/13/19 22 Colonoscopy completed [facility] 09/21/2023 10:28:14 03/15/20 19 biopsy completed [facility] 03/18/2020 17:41:45 08/14/18 94 ligation of bilateral fallopian tubes completed [facility] 03/18/2020 17:41:57 06/26/19 91 section completed [facility] 03/18/2020 17:41:05 05/14/19 90 biopsy completed [facility] 03/18/2020 17:41:24 Imaging Results None recorded. Procedure Notes None recorded. Medical Equipment None Reported. Allergies Allergen ID Allergen Name Allergen Category Reaction Reaction Severity Criticality Documentation Date Start Date Code Code System Note Provider Name and Address Organization Details Recorded Time 1579 Non-stero idal anti-infl ammatory agent (product) medicatio n Not available Not available Not available 03/18/2020 05960 005 SNOMED Janeth Pedersen [facility] 0 17:38:32 Medications Name Sig Start [...] Updated DateTime 03/10/2020 152.4 cm 32 kg/m2 77712.15 g 123 mm[Hg] 67 mm[Hg] Janeth Pedersen [facility] 0 17:10:18 Date Recorded Body height Body mass index (BMI) Body weight Systolic blood pressure Diastolic blood pressure Provider Name and Address Organization Details Last Updated DateTime 09/13/2022 152.4 cm 33.1 kg/m2 61762.55 g 112 mm[Hg] 73 mm[Hg] Ching Dao [facility] 3 14:08:29 Date Recorded Body height Provider Name an d Address Organization Details Last Updated DateTime 09/21/2023 152.4 cm Noris Brothers [facility] 09/21/2023 09:18:13 Date Recorded Body mass index (BMI) Body weight Systolic blood pressure Diastolic blood pressure Provider Name and Address Organization Details Last Updated DateTime 09/21/2023 33.3 kg/m2 52236.86 g 116 mm[Hg] 77 mm[Hg] Janeth Pedersen [facility] 09/21/2023 09:33:32 Social History Question Answer Notes LastModified by Organizat ion Details LastModified Time Tobacco Smoking Status Never Smoker Janeth Pedersen null, [facility] 03/18/2020 17:40:15 What Is Your Level Of Alcohol Consumption? None [email or web address] Information not available 03/18/2020 Are You Blind Or Do You Have Difficulty Seeing? No Information not available 09/13/2022 Are You Deaf Or Do You Have Serious Difficulty Hearing? No Information not available 09/13/2022 What Type Of Diet Are You Following? REGULAR Information not available 09/13/2022 Which Illicit Or Recreational Drugs Have You Used? None [email or web address] Information not available 03/18/2020 Do You Or Have You Ever Used E-cigarettes Or Vape? Never Used Electronic Cigarettes [email or web address] Information not available 03/18/2020 What Was The Date Of Your Most Recent Tobacco Screening? 03/10/2020 Information not available 03/18/2020 Do You Or Have You Ever Used Smokeless Tobacco? Never Used Smokeless Tobacco Information not available 03/18/2020 How Much Tobacco Do You Smoke? No [email or web address] Information not available 03/18/2020 Sex: Unknown Functional [...] 09/13/2022 What is your exercise level? Occasional [email or web address] Information not available 03/18/2020 Mental Status None recorded. Family History Relationship Description Onset Age of this Age Resolved Age Notes LastModified by Organization Details LastModified Time Father Diabetes mellitus [email or web address] Not available 03/18 17:40:06 Father Myocardial infarction [email or web address] Not available 02/2024 21:08:16 Father Hypertensive disorder [email or web address] Not available 09/20 21:08:28 Brother Myocardial infarction [email or web address] Not available 02/2024 21:08:16 Medical History Condition Response Allergies (Food, seasonal, environmental ) N Other N Breast Cancer N Drug/Latex Allergies/Reactions N Blood Transfusion N Dermatologic Disorders N Lung Disease N Defects or Inherited Disease N Breast Problem N Gestational Diabetes N Hematologic disorders N Anesthesia Complications N History of STI N Deep Vein Thrombosis N Polycystic ovary syndrome N Anxiety Disorder Y Autoimmune disease N Arthritis N Infertility N Polyps N Acid Reflux (GERD) N History of abnormal pap N Cancer N Stroke N Varicosities N Neurologic/Epilepsy N Endometriosis N High Cholesterol N Headaches N Fibromyalgia N Kidney Disease Y Heart Problems Y Kidney or Bladder Problems N Thyroid Problems Y GI Problems Y Eating Disorder N Anemia [...] SNOMED-CT Code Diagnosis ICD10 Code Diagnosis Note [id number] Miley Rodriguez CNM [place] [address] [address] 03/10/2020 16:14:07 03/10/2020 17:37:10 Gynecologic examination 17494865 Z01.419 f/u wwe yearly Fatigue 99455551 R53.83 order labs and fax to her pcp, consent signed [id number] GERSON Berumen [place] [address] [address] 09/13/2022 13:56:38 09/13/2022 15:11:56 Gynecologic examination 16727369 Z01.419 Take Calcium with Vitamin D 12-1500mg daily. Do monthly self breast exams. It is advised to get annual flu shot in the fall and she could obtain at [facility] or [facility] care clinic. If you haven't received the [...] PCPNicki ocpy done last yearUTD with PCP 100036 GERSON Berumen [place] [address] [address] 09/21/2023 09:07:51 09/21/2023 11:13:07 Gynecologic examination [id number] Z01.419 WWEpostmen opausalpap due 2025maog glenna order givencolon oscopy UTDroutine labs UTD/PCPRTC in 1 yr or sooner if needed Take Calcium with Vitamin D daily. Do monthly self breast exams. It is advised to get annual flu shot in the fall and she could obtain at [facility] or [facility] care clinic. 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 03/10/2020 17:36:08 09/13/2022 text/html Annual Electrologist Post-MenopausalRepor brayden bypatient.Menopausal Symptoms:no menopausal symptoms; normal [...] recent colonoscopy GERSON Berumen [address], [place], [address], [facility] 09/13/2022 14:59:39 09/21/2023 text/html Annual Electrologist Post-MenopausalRepor brayden bypatient.Menopausal Symptoms:no menopausal symptoms; normal [...] procedure. Mary Carter, [place] [address], [place], [address], [facility] 09/21/2023 11:11:17 OBGyn Episode Ob Episode Information Episode Created Date Number of Fetuses Patient Bloodtype Patient rh Status Prepregnancy Weight lbs Domestic Partner Domestic Partner Phone Father Name Clinical Research Tech Status 03/18/20 20 1 CLOSED Fetus Data [...] Domestic Partner Domestic Partner Phone Father Name Clinical Research Tech Status 03/18/20 20 1 CLOSED Fetus Data [...]
--- OUTSIDE RECORDS SUMMARY | 2024-12-13 01:31 | XMS_ITS | Referral Summary ---
Author Organization [facility] [address] Address [address] [place] [address] Care Team Providers Care Drafter (Cad) Electronic Name Role Phone Candi Pereira Primary Care Provider + Tom Mireles DO Unavailable [phone] Ramone Salinas MD Unavailable [phone] Viki Mendoza MD PhD Unavailable Allergies Active Allergy Reactions Criticality Noted Date [...] 1 tablet (112 mcg total) by mouth lip and gate builder before breakfast 10/03/19 23 Active pravastatin (PRAVACHOL) [...] UE PT/OT rec rehab - [facility] in [place] has accepted pending insurance authorization Spoke to [...] than three times a week 01/27/2022 Attends [employer] Not on file 01/27 Active Member [...] on file Legal 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 [employer] SP-3215 / / [employer] Sternalock Prabhakar 2.4mm 10mm Self Drill Lock Sternum Cancellous 73-4980 - [id number] Implanted:Qty: 1 on 11/06/2023 by Viki Mendoza MD PhD at [facility] [employer] 73-2410 / / [employer] Sternalock Prabhakar 2.4mm 12mm Self Drill Lock Sternum Cancellous 73-2412 - [id number] Implanted:Qty: 12 on 11/06/2023 by Viki Mendoza MD PhD at [facility] [employer] 73-2412 / / [employer] Sternalock Prabhakar 2.4mm 14mm Self Drill Lock Sternum Cancellous 73-2414 - [id number] Implanted:Qty: 8 on 11/06/2023 by Viki Mendoza MD PhD at [facility] [employer] 73-2414 / / [employer] Sternalock Prabhakar 2.4mm 16mm Self Drill Lock Sternum Cancellous 73-2416 - [id number] Implanted:Qty: 6 on 11/06/2023 by Viki Mendoza MD PhD at [facility] [employer] 73-2416 / / [employer] Sternalock Prabhakar 2.7mm 12mm Self Drill Lock Sternum Cancellous [id number] - [id number] Implanted:Qty: 3 on 11/06/2023 by Viki Mendoza MD PhD at [facility] [employer] 73-2712 / / [employer] Sternalock Prabhakar 6 Hole Sternum Hexagon Plate Bone Primary Closure Sp-2890 - [id number] Implanted:Qty: 1 on 11/06/2023 by Viki Mendoza MD PhD at [facility] N/A: Sternum [employer] SP-2890 / / [employer] Sternalock Prabhakar 4 Hole 2 Side Low Profile Sternum 100d L Plate 73-5613 - [id number] Implanted:Qty: 1 on 11/06/2023 by Viki Mendoza MD PhD at [facility] N/A: Sternum [employer] 73-2643 / / [employer] 2.4mm 14mm Self Drill Lock Rib Prebent Screw Bone Titanium 76-7049 - [id number] Implanted:Qty: 1 on 04/03/2024 by Viki Mendoza MD PhD at [facility] N/A: Sternum [employer] 76-2602 / / [employer] Ribfix Prabhakar 2.4mm 10mm Self Tap Lock Screw Bone 76-8410 - [id number] Implanted:Qty: 8 on 04/03/2024 by Viki Mendoza MD PhD at [facility] N/A: Sternum [employer] 76-2410 / / [employer] Screw Bone St Locking Ribfix Prabhakar 2.4x12mm Ti 76-7922 - [id number] Implanted:Qty: 3 on 04/03/2024 by Viki Mendoza MD PhD at [facility] N/A: Sternum [employer] 76-2412 / / Insurance [facility] [place] [address] [place] [address] [place] [address] Advance Directives For more information, please contact: [phone] * Full Code (Latest Code Status on File) Date Activated Date Inactivated Comments 04/03/2024 1:13 PM 04/05/2024 3:26 PM * Full Code Date Activated Date Inactivated Comments 11/07/2023 3:06 AM 11/14/2023 11:20 PM * Full Code Date Activated Date Inactivated Comments 01/26/2022 11:21 AM 01/31/2022 5:07 PM Care Teams Drafter (Cad) Electronic Relationship Specialty Start Date End Date Candi Pereira PA PCP - General Physician Manager Academic 02/18/21 Tom Mireles DO [address] [place] [address] Referring Physician Internal Medicine 07/07/21 Ramone Salinas MD [address] [facility] [address] [place] [address] Surgeon Cardiothoracic Surgery 11/14/23 Viki Mendoza MD PhD [address] [place] [address] Consulting Physician Plastic Surgery 11/14/23
--- OUTSIDE RECORDS SUMMARY | 2024-12-13 01:31 | XMS_ITS | Encounter Summary ---
Author Organization [facility] Address [address] [place] [address] Care Team Providers Care Grout Machine Tender Name Role Phone Unknown, Provider Primary Care Provider Unavaila ble Reason for Visit * Reason Onset Date Comments Nurse Only 06/13/2023 Encounter Details Date Type Department Care Team (Late st Contact Info) Description 06/13/2023 Telephone [facility] - Centralized Scheduling [address] [place] [address] Adolfo Costello MD [address] [facility] [place] [address] Nurse Only Social History Tobacco [...] more drinks on one occasion? 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 Gender Identity Female 01/21/2024 12:00 PM CDT Sexual Orientation Straight 01/21/2024 12 :00 PM CDT documented as of this encounter Miscellaneous Notes * Telephone Encounter - Jelly Fletcher - 06/13/2023 1:05 PM CDT Pt calling to speak to office about disability pt stated yard hand called her yesteday and she could not answer questions properly, pt is scheduled for 07/2023 documented in this encounter Plan of Treatment Upcoming Encounters Date Type Department Care Team (Late st Contact Info) Description 01/21/2025 11:00 AM CDT Office Visit [facility] - Ophthalmology [address] [place] [phone] Abisai Stoll MD [address] [place] [address] DE[place] [phone] documented as of this encounter Visit Diagnoses Not on filedocumented in this encounter Care Teams Grout Machine Tender Relationship Specialty Start Date End Date Unknown, Provider PCP - General 09/26/22 documented as of this encounter
--- OUTSIDE RECORDS SUMMARY | 2024-12-13 01:31 | XMS_ITS | Encounter Summary ---
Author Organization [facility] Address [address] [place] [address] Phone Care Team Providers Care Transportation Equipment Painter Name Role Phone Candi Pereira Primary Care Provider + Tom Mireles DO Unavailable [phone] Ramone Salinas MD Unavailable [phone] Viki Mendoza MD PhD Unavailable [phone] Encounter Details Date Type Department Care Team (Late st Contact Info) Description 08/22/2023 Orders Only [facility] [phone] Scanning, Provider Social History Tobacco Use Types [...] than three times a week 01/27/2022 Attends Spiritism Services Not on file 01/27 Active Member [...] on file Legal 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 Gender Identity Not on file Sexual Orientation [...] on filedocumented in this encounter Care Teams Transportation Equipment Painter Relationship Specialty Start Date End Date Candi Pereira PA PCP - General Physician Money Room Teller 02/18/21 Tom Mireles DO [address] [facility] [address] [place] [address] Referring Physician Internal Medicine 07/07/21 Ramone Salinas MD [address] [facility] [address] [place] [address] Surgeon Cardiothoracic Surgery 11/14/23 Viki Mendoza MD PhD [address] [place] [address] Consulting Physician Plastic Surgery 11/14/23 documented as of this encounter
--- OUTSIDE RECORDS SUMMARY | 2024-12-13 01:31 | XMS_ITS | Clinical Summary ---
Author Organization [facility] [address] Address [address] [place] [address] Care Team Providers Care Newspaper Clipper Name Role Phone Candi Pereira Primary Care Provider + Tom Mireles DO Unavailable [phone] Ramone Salinas MD Unavailable [phone] Viki Mendoza MD PhD Unavailable [phone] Allergies Active Allergy Reactions Criticality Noted Date [...] 1 tablet (112 mcg total) by mouth beer brewer before breakfast 10/03/19 23 Active pravastatin (PRAVACHOL) [...] UE PT/OT rec rehab - [facility] [place] has accepted pending insurance authorization Spoke to [...] than three times a week 01/27/2022 Attends Mormonism Services Not on file 01/27 Active Member [...] on file 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 Gender Identity Not on file Sexual Orientation [...] this topic Medical Devices Implanted Type Area Maintenance Service Supervisor Device Identifier Shelf Expiration Date Model / Serial / Lot [employer] Sternalock Prabhakar 8 Hole Sternum Plate Bone 2.4 Mm Screw 73-9333 - [id number] Implanted:Qty: 1 on 11/06/2023 by Viki Mendoza MD PhD at [facility] [employer] [id number] / / [employer] Plate Bone Sternalock 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 Sp-7865 - [id number] Implanted:Qty: 1 on 11/06/2023 by iVki Mendoza MD PhD at [facility] [employer] SP-[id number] / / [employer] Sternalock Prabhakar 2.4mm 10mm Self Drill Lock Sternum Cancellous 73-2410 - [id number] Implanted:Qty: 1 on 11/06/2023 by Viki Mendoza MD PhD at [facility] [employer] [id number] / / [employer] Sternalock Prabhakar 2.4mm 12mm Self Drill Lock Sternum Cancellous 73-2412 - [id number] Implanted:Qty: 12 on 11/06/2023 by Viki Mendoza MD PhD at [facility] [employer] 73-2412 / / [employer] Sternalock Prabhakar 2.4mm 14mm Self Drill Lock Sternum Cancellous 73-2414 - [id number] Implanted:Qty: 8 on 11/06/2023 by Viki Mendoza MD PhD at [facility] [employer] 73-2414 / / [employer] Sternalock Prabhakar 2.4mm 16mm Self Drill Lock Sternum Cancellous 73-2416 - [id number] Implanted:Qty: 6 on 11/06/2023 by Viki Mendoza MD PhD at [facility] [employer] 73-2416 / / [employer] Sternalock Prabhakar 2.7mm 12mm Self Drill Lock Sternum Cancellous 73-5822 - [id number] Implanted:Qty: 3 on 11/06/2023 by Viki Mendoza MD PhD at [facility] [employer] 73-2712 / / [employer] Sternalock Prabhakar 6 Hole Sternum Hexagon Plate Bone Primary Closure Sp-2890 - [id number] Implanted:Qty: 1 on 11/06/2023 by Viki Mendoza MD PhD at [facility] N/A: Sternum [employer] SP-2890 / / [employer] Sternalock Prabhakar 4 Hole 2 Side Low Profile Sternum 100d L Plate 73-8293 - [id number] Implanted:Qty: 1 on 11/06/2023 by Viki Mendoza MD PhD at [facility] N/A: Sternum [employer] [id number] / / [employer] 2.4mm 14mm Self Drill Lock Rib Prebent Screw Bone Titanium 76-6092 - [id number] Implanted:Qty: 1 on 04/03/2024 by Viki Mendoza MD PhD at [facility] N/A: Sternum [employer] 76-2602 / / [employer] Ribfix Prabhakar 2.4mm 10mm Self Tap Lock Screw Bone 76-8930 - [id number] Implanted:Qty: 8 on 04/03/2024 by Viki Mendoza MD PhD at [facility] N/A: Sternum [employer] 76-2410 / / [employer] Screw Bone St Locking Ribfix Prabhakar 2.4x12mm Ti 76-2412 - [id number] Implanted:Qty: 3 on 04/03/2024 by Viki Mendoza MD PhD at [facility] N/A: Sternum [employer] 76-0417 / / Insurance [facility] BLUE [place] [address] [place] [address] Advance Directives For more information, please contact: [phone] * Full Code (Latest Code Status on File) Date Activated Date Inactivated Comments 04/03/2024 1:13 PM 04/05/2024 3:26 PM * Full Code Date Activated Date Inactivated Comments 11/07/2023 3:06 AM 11/14/2023 11:20 PM * Full Code Date Activated Date Inactivated Comments 01/26/2022 11:21 AM 01/31/2022 5:07 PM Care Teams Newspaper Clipper Relationship Specialty Start Date End Date Candi Pereira PA PCP - General Physician Car Stower 02/18/21 Tom Mireles DO [address] [place] [address] Referring Physician Internal Medicine 07/07/21 Ramone Salinas MD [address] [facility] [address] [place] [address] Surgeon Cardiothoracic Surgery 11/14/23 Viki Mendoza MD PhD [address] [place] [address] Consulting Physician Plastic Surgery 11/14/23
--- OUTSIDE RECORDS SUMMARY | 2024-12-13 01:31 | XMS_ITS | Clinical Summary ---
Author Organization [facility] Address [address] [place] [address] Phone Care Team Providers Care Checkroom Chief Name Role Phone Unavailable Primary Care Provider Unavailabl e Allergies Active Allergy Reactions Criticality Noted Date Comments Nsaids Tinnitus 01/10/2024 Medications acetaminophen (TYLENOL) 325 MG tablet Take 325 [...] mg by mouth every night Active Calcium Carbonate-Vitami n D 600-10 MG-MCG tablet Take by mouth [...] Assigned at Not on file Legal Sex Male 1:05 PM MST Gender Identity Not on file Sexual Orientation [...] Upcoming Encounters Date Type Department Care Team ([facility] st Contact Info) Description 12/26/2024 12:40 PM CDT Office Visit [facility] [address] [facility] [address] [place] [address] Pancho Samaniego MD [address] [facility] 1 [place] [address] Health Maintenance Due Date Last Done Comments Pneumococcal PPSV23 Highest Risk Adult (1 of 3 - PCV13 ) 1987 Influenza Vaccine (Season Ended) 2025 Insurance PM INTERFACED INSURANCE
--- OUTSIDE RECORDS SUMMARY | 2024-12-13 01:31 | XMS_ITS | Clinical Summary ---
Author Organization [facility] Address [facility] [place] [address] Care Team Providers Care Specialist Icu Name Role Phone Candi Pereira PA-C Primary Care Provider [phone] Allergies Active Allergy Reactions Criticality Noted Date [...] Comments Blood Pressure 118/72 10/11/2021 2:16 PM CASE MANAGEMENT SPECIALIST Pulse 98 10/11/2021 2:16 PM CASE MANAGEMENT SPECIALIST Temperature 36.4 C (97.6 F) 10/11/2021 2:16 PM CASE MANAGEMENT SPECIALIST Respiratory Rate 18 10/11/2021 2:16 PM CASE MANAGEMENT SPECIALIST Oxygen Saturation 98% 10/11/2021 2:16 PM CASE MANAGEMENT SPECIALIST Inhaled Oxygen Concentration - - Weight 76.7 kg (169 lb) 10/11/2021 2:16 PM CASE MANAGEMENT SPECIALIST Height 154.9 cm (5' 1 ) 10/11/2021 2:16 PM CASE MANAGEMENT SPECIALIST Body Mass Index 31.93 10/11/2021 2:16 PM CASE MANAGEMENT SPECIALIST Plan of Treatment Health Maintenance Due Date [...] Screening with HPV 1998 Mammogram Screening 2008 Pneumococcal Vaccine: 50+ Ye ars (1 of 1 - PCV) 2018 Zoster Vaccines (1 of 2) 2018 COVID-19 [...] patient's age to complete this topic Insurance [facility] MEDICAID Care Teams Specialist Icu Relationship Specialty Start Date End Date Candi Pereira PA-C [address] [place] [id number] PCP - General NURSE PRACTITIONER 06/07/21
--- OUTSIDE RECORDS SUMMARY | 2024-12-13 01:31 | XMS_ITS | Clinical Summary ---
Author Organization [facility] Address [address] [place] [address] Care Team Providers Care Sound Editor Name Role Phone Unknown, Provider Primary Care Provider Unavaila ble Source Comments [facility],non-owned Affiliates and Associated Physician Practices is amultiple site organization consisting of ambulatory clinics and hospital sitesin [place], [place], [place] and [place]. This disclosure is being madepursuant to the Care Everywhere program and may not contain all information available regarding this patient. Last updated 18.[facility] Allergies Active Allergy Reactions Criticality Noted Date Comments Nsaids Tinnitus 05/29/2018 Medications * Be aware that medications may not be up to date on this document. Alwaysverify current medications with the patient. pantoprazole EC (Protonix) 40 MG tablet Take 1 (one) tablet by mouth at bedtime Active levothyroxine (Synthroid) 112 MCG tablet Take 1 (one) tablet by mouth once daily Active famotidine (Pepcid) 40 MG tablet Take 1 (one) tablet by mouth at bedtime Active DULoxetine (Cymbalta) 60 MG capsule 01/21/20 24 Active Farxiga 10 MG tablet Take 1 (one) tablet by mouth once daily 01/19/20 24 Active tamsulosin (Flomax) 0.4 MG capsule TAKE [...] (one) capsule by mouth 3 times daily 11/14/19 24 Active Docusate Sodium (DSS) 100 MG Take 100 mg by mouth 2 times daily 11/14/19 24 Active calcium carbonate-vitam in D 600-10 MG-MCG tablet Take by mouth once daily Active Calcium Carb-Cholecalci ferol (Oyster Shell Calcium w/D) 500-5 MG-MCG TABS Take 1 tablet by mouth once daily 11/15/19 24 Active bisacodyl (Dulcolax) 10 MG suppository Insert 1 (one) suppository into the rectum once daily as needed 11/14/19 24 Active Qulipta 60 MG TABS Take 1 (one) tablet by mouth once daily 01/19/20 24 Active ALPRAZolam (Xanax) 0.25 MG tablet TAKE [...] PM CDT 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 Gender Identity Female 01/21/2024 12:00 PM CDT [...] Description 01/21/2025 11:00 AM CDT Office Visit [facility] - Ophthalmology [address] [place] [phone] Abisai Stoll MD [address] [place] [address] [place] [address] Health Maintenance Due Date Last [...] this topic Medical Devices Implanted Type Area Geriatric Social Work Professor Device Identifier Shelf Expiration Date Model / Serial / Lot [employer]nis Eyhance Iol Implanted:Qty: 1 on 11/28/2022 by Adolfo Costello MD at [facility] Right: Eye [employer] 02/26/2025 [id number] / [id number] / [id number] Tecnis Eyhance Iol +22.5d Implanted:Qty: 1 on 12/19/2022 by Adolfo Costello MD at [facility] Left: Eye [employer] 08/13/2025 [id number] / [id number] / 0000 Procedures Procedure Name Priority Date/Time Associated Diagnosis Comments LIPID PROFILE Timed 01/19/2010 3:50 AM CDT Chest Pain from Last 3 Months or Most Recently Relevant to Health Maintenance Results * LIPID PROFILE (01/19/2010 3:50 AM CDT) Cholesterol 169 <200 mg/dl [facility] Triglycerides 107 <200 mg/dl [facility] HDL Cholesterol 50 >35 mg/dl [facility] LDL Direct 86.11 <130 mg/dl [facility] BLOOD SPECIMEN / Unknown 01/19/2010 3:50 AM CDT 01/19/2010 8:54 AM CDT us Conrad Santos Jr., MD LAB - CHEMISTRY ORDERABL ES Final Result [facility] [address] [place] [address] from Last 3 Months or Most Recently Relevant to Health Maintenance Insurance [facility] MEDICAID - OUT OF STATE [facility] Advance Directives * Full Code (Latest Code Status on File) Date Activated Date Inactivated Comments 01/20/2010 1:25 PM 01/21/2010 11:52 PM * Full Code Date Activated Date Inactivated Comments 01/19/2010 3:17 AM 01/20/2010 1:25 PM Care Teams Sound Editor Relationship Specialty Start Date End Date Unknown, Provider PCP - General 09/26/22
--- NOTE | 2024-12-13 08:54 | WPDHPUPDATE1 ---
History and Physical Update Update Date/Time: 12/13/24 08:54 History and Physical has been reviewed, including an updated exam of the patient. There are NO changes in the patient's condition. Risks, benefits, and alternatives have been discussed and questions answered. Patient agrees to proceed with procedure.
[2024-12-13] MEDS: LACTATED RINGERS 1,000 ML 30 ML IV CONT (08:59)
[2024-12-13] MEDS: ACETAMINOPHEN 500 MG TABLET 1000 MG PO (09:02)
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
[2024-12-13 09:29] LABS: Hematocrit 41.9 % (37.0-47.0); Hemoglobin 13.6 g/dL (12.0-15.0)
[2024-12-13] MEDS: ceFAZolin 2 GM/D5W 50 ML 2 GM/50 ML BAG IVPB (09:46)
[2024-12-13] MEDS: BUPivacaine HCL 0.5% 10 ML AMP 20 ML INFILTRATE (10:13)
--- NOTE | 2024-12-13 11:06 | P.OP_ITS ---
Procedure Note - Detailed Date of Procedure 12/13/24 Pre-op Diagnosis right wrist fracture-distal radius with intra-articular extension Post-op Diagnosis Same Procedure Performed Open reduction internal fixation right distal radius fracture with intra- articular extension, fixation of 2 fragments.. 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 Shortening of the fracture and angulation noted to increase. Presents now for operative treatment. Description of Procedure After informed consent the operative extremity was marked in the preoperative holding area. Patient received intravenous antibiotics. Patient taken to the operating room where they underwent general anesthesia. Positioned supine on op erating table. Time-out performed confirming the patient, patient's site of surgery and the plan. Right upper extremity prepped and draped in the usual sterile surgical fashion using a ChloraPrep skin solution. Hand and wrist exsanguinated and arm tourniquet inflated to 225 mmHg. Standard volar flexor carpi radialis incision utilized. Fifteen blade knife used to make longitudinal incision. Flexor carpi radialis tendon identified tendon sheath incised in line with skin incision. Tendon retracted to protect the neurovascular elements. Floor of the tendon sheath incised with a 15 blade knife. Flexor pollicis retracted medial. pronator quadratus then divided off the watershed line and reflected ulnarward to expose the distal radius and the fracture. Fracture was then reduced provisionally pinned. Image intensification confirm reduction. Fixation achieved with the distal radius volar plate. This was provisionally pinned into place and confirmed with image intensification. Fixation to the proximal fragment with a 3.5 mm screw. Distal fracture fixation achieved with 2.0 mm locking pegs and 2.0 mm fully threaded locking screws for the radial styloid. Fixation was then completed proximally with the remaining 3.5 mm screws. Final reduction of the fracture, alignment of the wrist joint and placement of the hardware verified with image intensification. Wound thoroughly irrigated with antibiotic solution. Pronator repaired with 3 0 Monocryl interrupted suture. Skin closed with interrupted subcutaneous 000 Monocryl interrupted suture and running 000 Monocryl subcuticular stitch. Local anesthetic with 0.5% Marcaine. Sterile dressing applied. Padded dressing and splint then applied. Tourniquet released and good capillary refill noted in the fingers and thumb. Patient awoke from anesthesia, extubated and taken to the recovery room in stable condition. All sponge and instrument counts correct at the end of case. Implants Biomet volar radial locking plate with pegs and screws Estimated Blood Loss 10 Tourniquet Time Total Tourniquet Time: 48 Drains No Packing No Pathology None sent Complications None Condition Stable Disposition PACU [facility] Billing Surgery - Charge Forward: Surgery Billing ([id number])
[2024-12-13] MEDS: fentaNYL CITRATE INJ (*CRX) 100 MCG/2 ML VIAL 25 MCG IV PUSH ×4 (11:19→11:29)
[2024-12-13] MEDS: oxyCODONE HCL (*CRX) 5 MG TAB IR PO (12:38)
== END 2024-12-13 12:40 | disposition home or self-care (01) ==
PROVIDERS: Anesthesiology; PCP Physician Assistant; Visit Provider Orthopaedic Surgery
PROC: (CPT 25575; principal; 2024-12-13 10:00)
DX: S52.531A Colles' fracture of right radius, initial encounter for closed fracture (principal); S52.614A Nondisplaced fracture of right ulna styloid process, initial encounter for closed fracture; I50.22 Chronic systolic (congestive) heart failure; I25.10 Atherosclerotic heart disease of native coronary artery without angina pectoris; F41.9 Anxiety disorder, unspecified; G47.10 Hypersomnia, unspecified; E07.9 Disorder of thyroid, unspecified; K58.9 Irritable bowel syndrome, unspecified; W01.0XXA Fall on same level from slipping, tripping and stumbling without subsequent striking against object, initial encounter; Y93.K1 Activity, walking an animal; E66.9 Obesity, unspecified; Z68.32 Body mass index [BMI] 32.0-32.9, adult; Z79.891 Long term (current) use of opiate analgesic; Z79.84 Long term (current) use of oral hypoglycemic drugs; Z98.890 Other specified postprocedural states; Z82.49 Family history of ischemic heart disease and other diseases of the circulatory system
CPT/HCPCS: 25608; 36415; 85014; 85018; 99199; A9270; J0690; J1100; J1171; J2003; J2250; J2371; J2405; J2704; J3010; J7120

== ENCOUNTER 2024-12-14 08:06 | Emergency (ER) | payer OTHER, SELFPAY ==
[2024-12-14 08:10] VITALS: BP 108/96; PULSE 80; RESP 16; TEMP 36.6; O2SAT 96
--- NOTE | 2024-12-14 08:13 | PC.NURSE ---
Dr. Moore at bedside assessing pt.
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
[2024-12-14 09:23] VITALS: BP 142/80; PULSE 82; RESP 16; TEMP 36.6; O2SAT 98
--- OUTSIDE RECORDS SUMMARY | 2024-12-14 15:53 | XMS_ITS | Clinical Summary ---
Author Organization [facility] [address] Address [address] [place] [address] Care Team Providers Care Sleeve Separator Name Role Phone Candi Pereira Primary Care Provider + Tom Mireles DO Unavailable [phone] Ramone Salinas MD Unavailable [phone] Viki Mendoza MD PhD Unavailable [phone] Allergies Active Allergy Reactions Criticality Noted Date [...] 1 tablet (112 mcg total) by mouth feather separator before breakfast 10/03/19 23 Active pravastatin (PRAVACHOL) [...] UE PT/OT rec rehab - [facility] in [place] has accepted pending insurance authorization Spoke to [...] than three times a week 01/27/2022 Attends [employer] Not on file 01/27 Active Member [...] on file Legal Sex Female 7:17 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 Gender Identity Not on file Sexual Orientation [...] this topic Medical Devices Implanted Type Area Extraction Operator Device Identifier Shelf Expiration Date Model / Serial / Lot [employer] Sternalock Prabhakar 8 Hole Sternum Plate Bone 2.4 Mm Screw 73-0593 - [id number] Implanted:Qty: 1 on 11/06/2023 by Viki Mendoza MD PhD at [facility] [employer] 73-2623 / / [employer] Plate Bone Sternalock 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 Sp-9195 - [id number] Implanted:Qty: 1 on 11/06/2023 by Viki Mendoza MD PhD at [facility] [employer] SP-[id number] / / [employer] Sternalock Prabhakar 2.4mm 10mm Self Drill Lock Sternum Cancellous 73-2410 - [id number] Implanted:Qty: 1 on 11/06/2023 by Viki Mendoza MD PhD at [facility] [employer] 73-2410 / / [employer] Sternalock Prabhakar 2.4mm 12mm Self Drill Lock Sternum Cancellous 73-2412 - [id number] Implanted:Qty: 12 on 11/06/2023 by Viki Mendoza MD PhD at [facility] [employer] 73-2412 / / [employer] Sternalock Prabhakar 2.4mm 14mm Self Drill Lock Sternum Cancellous 73-2414 - [id number] Implanted:Qty: 8 on 11/06/2023 by Viki Mendoza MD PhD at [facility] [employer] 73-2414 / / [employer] Sternalock Prabhakar 2.4mm 16mm Self Drill Lock Sternum Cancellous 73-2416 - [id number] Implanted:Qty: 6 on 11/06/2023 by Viki Mendoza MD PhD at [facility] [employer] 73-2416 / / [employer] Sternalock Prabhakar 2.7mm 12mm Self Drill Lock Sternum Cancellous 73-6612 - [id number] Implanted:Qty: 3 on 11/06/2023 by Viki Mendoza MD PhD at [facility] [employer] 73-2712 / / [employer] Sternalock Prabhakar 6 Hole Sternum Hexagon Plate Bone Primary Closure Sp-2890 - [id number] Implanted:Qty: 1 on 11/06/2023 by Viki Mendoza MD PhD at [facility] N/A: Sternum [employer] SP-2890 / / [employer] Sternalock Prabhakar 4 Hole 2 Side Low Profile Sternum 100d L Plate 73-0003 - [id number] Implanted:Qty: 1 on 11/06/2023 by Viki Mendoza MD PhD at [facility] N/A: Sternum [employer] 73-2643 / / [employer] 2.4mm 14mm Self Drill Lock Rib Prebent Screw Bone Titanium 76-7692 - [id number] Implanted:Qty: 1 on 04/03/2024 by Viki Mendoza MD PhD at [facility] N/A: Sternum [employer] 76-2602 / / [employer] Ribfix Prabhakar 2.4mm 10mm Self Tap Lock Screw Bone 76-6060 - [id number] Implanted:Qty: 8 on 04/03/2024 by Viki Mendoza MD PhD at [facility] N/A: Sternum [employer] 76-2410 / / [employer] Screw Bone St Locking Ribfix Prabhakar 2.4x12mm Ti 76-2412 - [id number] Implanted:Qty: 3 on 04/03/2024 by Viki Mendoza MD PhD at [facility] N/A: Sternum [employer] [id number] / / Insurance [facility] BL[place] [address] [address] [place] [address] Advance Directives For more information, please contact: [phone] * Full Code (Latest Code Status on File) Date Activated Date Inactivated Comments 04/03/2024 1:13 PM 04/05/2024 3:26 PM * Full Code Date Activated Date Inactivated Comments 11/07/2023 3:06 AM 11/14/2023 11:20 PM * Full Code Date Activated Date Inactivated Comments 01/26/2022 11:21 AM 01/31/2022 5:07 PM Care Teams Sleeve Separator Relationship Specialty Start Date End Date Candi Pereira PA PCP - General Physician Administrative Resources Associate 02/18/21 Tom Mireles DO [address] [place] [address] Referring Physician Internal Medicine 07/07/21 Ramone Salinas MD [address] [facility] [address] [place] [address] Surgeon Cardiothoracic Surgery 11/14/23 Viki Mendoza MD PhD [address] [place] [address] Consulting Physician Plastic Surgery 11/14/23
--- OUTSIDE RECORDS SUMMARY | 2024-12-14 15:53 | XMS_ITS | Encounter Summary ---
Author Organization [facility] Address [address] [place] [address] Care Team Providers Care Shopper Name Role Phone Unknown, Provider Primary Care Provider Unavaila ble Reason for Visit * Reason Onset Date Comments Nurse Only 06/13/2023 Encounter Details Date Type Department Care Team (Late st Contact Info) Description 06/13/2023 Telephone [facility] - Centralized Scheduling [address] [place] [address] Adolfo Costello MD [address] [facility] [place] [address] Nurse Only Social History Tobacco [...] PM CDT Legal Sex Female 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 Gender Identity Female 01/21/2024 12:00 PM CDT Sexual Orientation Straight 01/21/2024 12 :00 PM CDT documented as of this encounter Miscellaneous Notes * Telephone Encounter - Jelly Fletcher - 06/13/2023 1:05 PM CDT Pt calling to speak to office about disability pt stated 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 siding installer called her yesteday and she could not answer questions properly, pt is scheduled for 07/2023 documented in this encounter Plan of Treatment Upcoming Encounters Date Type Department Care Team (Late st Contact Info) Description 01/21/2025 11:00 AM CDT Office Visit [facility] - Ophthalmology [address] [place] [phone] Abisai Stoll MD [address] [place] [address] DE[place] [phone] documented as of this encounter Visit Diagnoses Not on filedocumented in this encounter Care Teams Shopper Relationship Specialty Start Date End Date Unknown, Provider PCP - General 09/26/22 documented as of this encounter
--- OUTSIDE RECORDS SUMMARY | 2024-12-14 15:53 | XMS_ITS | Clinical Summary ---
Author Organization [facility] Address [address] [facility] [place] [address] Care Team Providers Care Assistant Family Teacher Name Role Phone Unknown, Provider Primary Care Provider Unavaila ble Source Comments [facility],non-owned Affiliates and Associated Physician Practices is amultiple site organization consisting of ambulatory clinics and hospital sitesin [place], [place]. This disclosure is being madepursuant to the Care Everywhere program and may not contain all information available regarding this patient. Last updated 18.[facility] Allergies Active Allergy Reactions Criticality Noted [...] PM CDT Legal Sex Female 8:56 AM JIGMAN Gender Identity Female 01/21/2024 12:00 PM CDT [...] Description 01/21/2025 11:00 AM CDT Office Visit [facility] - Ophthalmology [address] [place] [phone] Abisai Stoll MD [address] [place] [address] [place] [address] Health Maintenance Due Date Last [...] this topic Medical Devices Implanted Type Area Vp Site Device Identifier Shelf Expiration Date Model / Serial / Lot [employer] Iol Implanted:Qty: 1 on 11/28/2022 by Adolfo Costello MD at [facility] Right: Eye [employer] 02/26/2025 [id number] / [id number] / [id number] Tecnis Eyhance Iol +22.5d Implanted:Qty: 1 on 12/19/2022 by Adolfo Costello MD at [facility] Left: Eye [employer] 08/13/2025 [id number] / [id number] / 0000 Procedures Procedure Name Priority Date/Time Associated Diagnosis Comments LIPID PROFILE Timed 01/19/2010 3:50 AM CDT Chest Pain from Last 3 Months or Most Recently Relevant to Health Maintenance Results * LIPID PROFILE (01/19/2010 3:50 AM CDT) Cholesterol 169 <200 mg/dl [facility] Triglycerides 107 <200 mg/dl [facility] HDL Cholesterol 50 >35 mg/dl [facility] LDL Direct 86.11 <130 mg/dl [facility] BLOOD SPECIMEN / Unknown 01/19/2010 3:50 AM CDT 01/19/2010 8:54 AM CDT us Conrad Santos Jr., MD LAB - CHEMISTRY ORDERABL ES Final Result [facility] [address] [place] [id number] from Last 3 Months or Most Recently Relevant to Health Maintenance Insurance [facility] MEDICAID - OUT OF STATE [facility] Advance Directives * Full Code (Latest Code Status on File) Date Activated Date Inactivated Comments 01/20/2010 1:25 PM 01/21/2010 11:52 PM * Full Code Date Activated Date Inactivated Comments 01/19/2010 3:17 AM 01/20/2010 1:25 PM Care Teams Assistant Family Teacher Relationship Specialty Start Date End Date Unknown, Provider PCP - General 09/26/22
--- OUTSIDE RECORDS SUMMARY | 2024-12-14 15:53 | XMS_ITS | Data Portability ---
Author Organization [facility] [place] Address [address] [place] [address] [place] [address] Care Team Providers Care Edi Consultant Name Role Phone BEVERLY GEMINI Primary Care Provider [facility] OTHER [phone] Assessment Encounter Date Assessment Date Assessment LastModified by Organization Details LastModified Time 03/10/2020 03/10/2020 Annual gynecological exam performed. Patient will come back in a year unless there are new symptoms. Not available 03/10/2020 17:06:44 09/13/2022 09/13/2022 Annual [...] Imaging MAMMO, screening, digital, bilateral 2023 [facility] [address], [place], [address], 4 05:00:58 Medication Orders None recorded. Patient TargetsNo targets recorded. Patient Instructions Encounter Date Encounter Id Patient Instructions Last Modified By Organization Details Last Modified Time 03/10/2020 [id number] Suggest Calcium with Vitamin D if not [...] B12 308 pg/mL 232-12 45 Not Available [facility] ([facility]) [address] [place] [address] Dr Nielson, [place], [address], 03/11/2020 14:38:14 03/10/20 20 03/11/2020 vitam in B12 + folat e, serum or blood folate 11.10 NG/mL >4.59 Not Available [facility] ([facility]) [address] [place] [address] Dr Nielson, [place], [address], 03/11/2020 14:38:14 03/10/20 20 03/11/2020 CBC w/ auto diff WBC 7.0 K/uL 3.8-11 .5 Not Available [facility] [address] [place] [address] Dr Nielson, [place], [address], 03/11/2020 14:38:14 03/10/20 20 03/11/2020 CBC w/ auto diff red blood cell count (RBC) 4.04 M/mm3 3.60-5 .30 Not Available [facility]) [address] [place] [address] Dr Nielson, [place], [address], 03/11/2020 14:38:14 03/10/20 20 03/11/2020 CBC w/ auto diff hemoglobin (HGB) 12.7 gm/dL 11.5-1 5.5 Not Available [facility]) [facility] [address] Nielson, [place], [address], 03/11/2020 14:38:14 03/10/20 20 03/11/2020 CBC w/ auto diff hematocrit (HCT) 37.3 % 35.2-4 6.4 Not Available [facility] ([facility]) [address] [place] [address] Dr Nielson, [place], [address], 03/11/2020 14:38:14 03/10/20 20 03/11/2020 CBC w/ auto diff MCV 92.3 fL 79.0-9 9.0 Not Available [facility] ([facility]) [address] [place] [address] Dr Nielson, [place], [address], 03/11/2020 14:38:14 03/10/20 20 03/11/2020 CBC w/ auto diff MCH 31.4 pg 26.9-3 5.0 Not Available [facility] ([facility]) [address] [place] [address] Dr Nielson, [place], [address], 03/11/2020 14:38:14 03/10/20 20 03/11/2020 CBC w/ auto diff MCHC 34.0 g/dL 30.4-3 4.8 Not Available [facility] ([facility]) [address] [place] [address] Dr Nielson, [place], [address], 03/11/2020 14:38:14 03/10/20 20 03/11/2020 CBC w/ auto diff RDW 44.4 fL 38.6-5 3.8 Not Available [facility] ([facility]) [address] [place] [address] Dr Nielson, [place], [address], 03/11/2020 14:38:14 03/10/20 20 03/11/2020 CBC w/ auto diff platelet count 257 K/cum m 137-39 7 Not Available [facility] ([facility]) [address] [place] [address] Dr Nielson, [place], [address], 03/11/2020 14:38:14 03/10/20 20 03/11/2020 CBC w/ auto diff neutrophils automated 51.2 % 41.0-7 7.0 Not Available [facility] ([facility]) [address] [place] [address] Dr Nielson, [place], [address], 03/11/2020 14:38:14 03/10/20 20 03/11/2020 CBC w/ auto diff lymphocytes automated 34.2 % 14.0-4 8.0 Not Available [facility] ([facility]) [address] [place] [address] Dr Nielson, [place], [address], 03/11/2020 14:38:14 03/10/20 20 03/11/2020 CBC w/ auto diff monocytes automated 9.3 % 4.0-13 .0 Not Available [facility] ([facility]) [address] [place] [address] Dr Nielson, [place], [address], 03/11/2020 14:38:14 03/10/20 20 03/11/2020 CBC w/ auto diff eosinophils automated 4.1 % 0.0-8. 0 Not Available [facility] ([facility]) [address] [place] [address] Dr Nielson, [place], [address], 03/11/2020 14:38:14 03/10/20 20 03/11/2020 CBC w/ auto diff basophils automated 0.9 % 0.0-1. 5 Not Available [facility] ([facility]) [address] [place] [address] Dr Nielson, [place], [address], 03/11/2020 14:38:14 03/10/20 20 03/11/2020 CBC w/ auto diff immature granulocyte automated 0.3 % 0.0-1. 0 Not Available [facility] ([facility]) [address] [place] [address] Dr Nielson, [place], [address], 03/11/2020 14:38:14 03/10/20 20 03/11/2020 T4, free, serum thyroxine free (free T4) 0.87 NG/dL 0.86-1 .76 Not Available [facility] ([facility]) [address] [place] [address] Dr Nielson, [place], [address], 03/11/2020 14:38:15 03/10/20 20 03/11/2020 TSH, serum or plasm a TSH reflex to FT4 12.30 mU/L 0.27-4 .20 high Not Available [facility] ([facility]) [address] [place] [address] Dr Nielson, [place], [address], 03/11/2020 14:38:16 03/10/20 20 03/11/2020 vitam in [...] latio n requi red. Not Available [facility] ([facility]) [address] [place] [address] Dr Nielson, [place], [address], 03/11/2020 14:38:16 03/10/20 20 03/13/2020 pap, LB [...] and labor atory findi ngs. See https ://[employer] (formerly [employer]) wW4/s ites/ defau lt/fi les/2 018-0 3/AW- 13258 _002_ 01.pd f for fursarah er infor matio n. Test perfo rmed by [facility], d/b/a Mayelin javed, [address], [facility] [place] [address] , Paco Hernandez ra, DO, Labor atory [...] and labor atory findi ngs. See https ://[employer]/s ites/ defau lt/fi les/2 018-0 3/AW- 56451 _002_ 01.pd f for furth er infor nancy n. Test perfo rmed by [employer], d/b/a [employer], [address], [place] [address] , Paco Hernandez ra, DO, Labor atory Direc tor. End of t Techn ical servi raymond provi ded by [facility], d/b/a Lovely, [address] [place] [address] Watson Davila MD, Labor ator Dire tor. Case revie wed and diagn osis rende red at [employer], d/b/a [employer], [address] [place] [address] Watson Davila MD, Labor atory Dire tor. CONFI DENTI AL Not Available [facility] ([facility]) [address], [place], [address], 03/13/2020 17:18:56 03/10/20 20 03/13/2020 CT + [...] rmed by [facility], [employer], d/b/a [facility], [address], [place] [address] , Paco Hernandez ra, DO, Labor atory Direc tor. Not Available [facility] ([facility]) [address] [place] [address], [place], [address], 03/13/2020 17:18:56 03/10/20 20 03/13/2020 CT + [...] rmed by [facility], [employer], d/b/a Maeylin roup, [address], [place] [address] , Paco Hernandez ra, DO, Labor atory Direc tor. Not Available [facility]) [address] [facility] [address], [place], [address], 03/13/2020 17:18:56 03/10/20 20 03/13/2020 CT + [...] ing error . Test perfo rmed by [employer], d/b/a Mayelin javed, [address], [place] [address] , Paco Hernandez ra, DO, Labor atory Direc tor. Not Available [facility]) [address], [place], [address], 03/13/2020 17:18:56 03/10/20 20 03/13/2020 HPV DNA, [...] and labor atory findi ngs. See https ://[employer] (formerly [employer]) wW4/s ites/ defjayleen lt/fi les/2 018-0 3/AW- 33346 _002_ 01.pd f for david kochr nhiclifton cassandra. Test perfo rmed by [employer], d/b/a Mayelin javed, [address], [place] [address] , Paco Hernandez ra, DO, Labor atory Dire tor. Not Available [facility] [address] [facility] [address], [place], [address], 03/13/2020 17:18:57 Result Notes None recorded. Procedures Surgical History Date Name Laterality Status Provider Name and Address Organization Details Recorded Time 12/20/19 23 cataract surgery completed [facility] 09/20/2023 21:09:39 09/13/19 23 Date of Last Pap Smear completed [facility] 09/21/2023 12:51:50 01/17/20 22 open heart surgery completed Mary Carter FLOR [address], [place], [address], [facility] 09/21/2023 11:06:28 11/13/19 22 Date of Last Colonoscopy completed [facility] 09/21/2023 10:27:09 11/13/19 22 Colonoscopy completed [facility] 09/21/2023 10:28:14 03/15/20 19 biopsy completed [facility] 03/18/2020 17:41:45 08/14/18 94 ligation of bilateral fallopian tubes completed [facility] 03/18/2020 17:41:57 06/26/19 91 section completed [facility] 03/18/2020 17:41:05 05/14/19 90 biopsy completed [facility] 03/18/2020 17:41:24 Imaging Results None recorded. Procedure Notes None recorded. Medical Equipment None Reported. Allergies Allergen ID Allergen Name Allergen Category Reaction Reaction Severity Criticality Documentation Date Start Date Code Code System Note Provider Name and Address Organization Details Recorded Time 1579 Non-stero idal anti-infl ammatory agent (product) medicatio n Not available Not available Not available 03/18/2020 [address] [address] [facility] 0 17:38:32 Medications Name Sig Start [...] Updated DateTime 03/10/2020 152.4 cm 32 kg/m2 33705.15 g 123 mm[Hg] 67 mm[Hg] Janeth Pedersen [facility] 0 17:10:18 Date Recorded Body height Body mass index (BMI) Body weight Systolic blood pressure Diastolic blood pressure Provider Name and Address Organization Details Last Updated DateTime 09/13/2022 152.4 cm 33.1 kg/m2 92760.55 g 112 mm[Hg] 73 mm[Hg] Ching Dao [facility] 3 14:08:29 Date Recorded Body height Provider Name an d Address Organization Details Last Updated DateTime 09/21/2023 152.4 cm Noris Brothers [facility] 09/21/2023 09:18:13 Date Recorded Body mass index (BMI) Body weight Systolic blood pressure Diastolic blood pressure Provider Name and Address Organization Details Last Updated DateTime 09/21/2023 33.3 kg/m2 27093.86 g 116 mm[Hg] 77 mm[Hg] Janeth Pedersen [facility] 09/21/2023 09:33:32 Social History Question Answer Notes LastModified by Organizat ion Details LastModified Time Tobacco Smoking Status Never Smoker Janeth Pedersen null, [facility] 03/18/2020 17:40:15 What Is Your Level Of Alcohol Consumption? None Information not available 03/18/2020 Are You Blind Or Do You Have Difficulty Seeing? No Information not available 09/13/2022 Are You Deaf Or Do You Have Serious Difficulty Hearing? No Information not available 09/13/2022 What Type Of Diet Are You Following? REGULAR Information not available 09/13/2022 Which Illicit Or Recreational Drugs Have You Used? None [email or web address] Information not available 03/18/2020 Do You Or Have You Ever Used E-cigarettes Or Vape? Never Used Electronic Cigarettes [email or web address] Information not available 03/18/2020 What Was The Date Of Your Most Recent Tobacco Screening? 03/10/2020 [email or web address] Information not available 03/18/2020 Do You Or Have You Ever Used Smokeless Tobacco? Never Used Smokeless Tobacco [email or web address] Information not available 03/18/2020 How Much Tobacco Do You Smoke? No [email or web address] Information not available 03/18/2020 Sex: Unknown Functional [...] 09/13/2022 What is your exercise level? Occasional [email or web address] Information not available 03/18/2020 Mental Status None recorded. Family History Relationship Description Onset Age of this Age Resolved Age Notes LastModified by Organization Details LastModified Time Father Diabetes mellitus [email or web address] Not available 03/18 17:40:06 Father Myocardial infarction Not available 02/2024 21:08:16 Father Hypertensive disorder [email or web address] Not available 09/20 21:08:28 Brother Myocardial infarction [email or web address] Not available 02/2024 21:08:16 Medical History Condition [...] SNOMED-CT Code Diagnosis ICD10 Code Diagnosis Note [id number] Miley Rodriguez CNM [place] [address],[place] [address] 03/10/2020 16:14:07 03/10/2020 17:37:10 Gynecologic examination [id number] Z01.419 f/u wwe yearly Fatigue 45187886 R53.83 order labs and fax to her pcp, consent signed [id number] GERSON Berumen [place] [address] [address] 09/13/2022 13:56:38 09/13/2022 15:11:56 Gynecologic examination 56370137 Z01.419 Take Calcium with Vitamin D 12-1500mg daily. Do monthly self breast exams. It is advised to get annual flu shot in the fall and she could obtain at [facility] or [facility] care clinic. If [...] PCPNicki ocpy done last yearUTD with PCP [id number] GERSON Berumen [place] [address] [address] 09/21/2023 09:07:51 09/21/2023 11:13:07 Gynecologic examination 42007650 Z01.419 WWEpostmen opausalpap due 2025maog glenna order givencolon oscopy UTDroutine labs UTD/PCPRTC in 1 yr or sooner if needed Take Calcium with Vitamin D daily. Do monthly self breast exams. It is advised to get annual flu shot in the fall and she could obtain at [facility] or [facility] care clinic. 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 03/10/2020 17:36:08 09/13/2022 text/html Annual Order Worker Post-MenopausalRepor brayden bypatient.Menopausal Symptoms:no menopausal symptoms; normal [...] recent colonoscopy GERSON Berumen [address], [place], [address], [facility] 09/13/2022 14:59:39 09/21/2023 text/html Annual Order Worker Post-MenopausalRepor brayden bypatient.Menopausal Symptoms:no menopausal symptoms; normal [...] procedure. Mary Carter, GERSON [address], [place], [address], [facility] 09/21/2023 11:11:17 OBGyn Episode Ob Episode Information Episode Created Date Number of Fetuses Patient Bloodtype Patient rh Status Prepregnancy Weight lbs Domestic Partner Domestic Partner Phone Father Name Bridge Engineer Status 03/18/20 20 1 CLOSED Fetus [...] Domestic Partner Domestic Partner Phone Father Name Bridge Engineer Status 03/18/20 20 1 CLOSED Fetus [...]
--- OUTSIDE RECORDS SUMMARY | 2024-12-14 15:53 | XMS_ITS | Clinical Summary ---
Author Organization [facility] Address [address] [place] [address] Phone Care Team Providers Care Sports Trainer Name Role Phone Unavailable Primary Care Provider [...] Upcoming Encounters Date Type Department Care Team ([facility] st Contact Info) Description 12/26/2024 12:40 PM CDT Office Visit [facility] [address] [facility] [address] [place] [address] Pancho Samaniego MD [address] [facility] 1 [place] [address] Health Maintenance Due Date Last Done Comments Pneumococcal PPSV23 Highest Risk Adult (1 of 3 - PCV13 ) 1987 Influenza Vaccine (Season Ended) 2025 Insurance PM INTERFACED INSURANCE
--- OUTSIDE RECORDS SUMMARY | 2024-12-14 15:53 | XMS_ITS | Encounter Summary ---
Author Organization [facility] Address [address] [place] [address] Phone Care Team Providers Care Shade Bander Name Role Phone Candi Pereira Primary Care Provider + Tom Mireles DO Unavailable Ramone Salinas MD Unavailable [phone] Viki Mendoza MD PhD Unavailable [phone] Encounter Details Date Type Department Care Team (Late st Contact Info) Description 08/22/2023 Orders Only [facility] PMR [phone] Scanning, Provider Social History Tobacco Use Types [...] than three times a week 01/27/2022 Attends [employer] Not on file 01/27 Active Member [...] on file 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 Gender Identity Not on file Sexual Orientation [...] on filedocumented in this encounter Care Teams Shade Bander Relationship Specialty Start Date End Date Candi Pereira PA PCP - General Physician Wall Covering Contractor 02/18/21 Tom Mireles DO [address] [facility] [address] [place] [address] Referring Physician Internal Medicine 07/07/21 Rmaone Salinas MD [address] [facility] [id number] [place] [address] Surgeon Cardiothoracic Surgery 11/14/23 Viki Mendoza MD PhD [address] [place] [address] Consulting Physician Plastic Surgery 11/14/23 documented as of this encounter
--- OUTSIDE RECORDS SUMMARY | 2024-12-14 15:53 | XMS_ITS | Clinical Summary ---
Author Organization [facility] Address [facility] [place] [address] Care Team Providers Care Director Of Collections Name Role Phone Candi Pereira PA-C Primary Care Provider [phone] Allergies Active Allergy Reactions Criticality Noted Date [...] Comments Blood Pressure 118/72 10/11/2021 2:16 PM [facility] Pulse 98 10/11/2021 2:16 PM [facility] Temperature 36.4 C (97.6 F) 10/11/2021 2:16 PM [facility] Respiratory Rate 18 10/11/2021 2:16 PM [facility] Oxygen Saturation 98% 10/11/2021 2:16 PM [facility] Inhaled Oxygen Concentration - - Weight 76.7 kg (169 lb) 10/11/2021 2:16 PM [facility] Height 154.9 cm (5' 1 ) 10/11/2021 2:16 PM [facility] Body Mass Index 31.93 10/11/2021 2:16 PM [facility] Plan of Treatment Health Maintenance Due Date [...] patient's age to complete this topic Insurance [facility] MEDICAID Care Teams Director Of Collections Relationship Specialty Start Date End Date Candi Pereira PA-C [address] [place] [id number] PCP - General NURSE PRACTITIONER 06/07/21
--- OUTSIDE RECORDS SUMMARY | 2024-12-14 15:53 | XMS_ITS | Referral Summary ---
Author Organization [facility] [address] Address [address] [place] [address] Care Team Providers Care Diversional Therapist'S Assistant Name Role Phone Candi Pereira Primary Care Provider + Tom Mireles DO Unavailable Ramone Salinas MD Unavailable [phone] Viki Mendoza MD PhD Unavailable [phone] Allergies Active Allergy Reactions Criticality Noted Date [...] 1 tablet (112 mcg total) by mouth roofing superintendent before breakfast 10/03/19 23 Active pravastatin (PRAVACHOL) [...] UE PT/OT rec rehab - [facility] in [place] has accepted pending insurance authorization Spoke to [...] than three times a week 01/27/2022 Attends [employer] Services Not on file 01/27 Active Member [...] on file 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 Gender Identity Not on file Sexual [...] on file Medical Devices Implanted Type Area Branch Operations Coordinator Device Identifier Shelf Expiration Date Model / Serial / Lot [employer] Sternalock Prabhakar 8 Hole Sternum Plate Bone 2.4 Mm Screw 73-2623 - [id number] Implanted:Qty: 1 on 11/06/2023 by Viki Mendoza MD PhD at [facility] [employer] 73-2623 / / [employer] Plate Bone Sternalock 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 Sp-4045 - [id number] Implanted:Qty: 1 on 11/06/2023 by Viki Mendoza MD PhD at [facility] [employer] SP-3215 / / [employer] Sternalock Prabhakar 2.4mm 10mm Self Drill Lock Sternum Cancellous 73-1830 - [id number] Implanted:Qty: 1 on 11/06/2023 by Viki Mendoza MD PhD at [facility] [employer] 73-2410 / / [employer] Sternalock Prabhakar 2.4mm 12mm Self Drill Lock Sternum Cancellous 73-2412 - [id number] Implanted:Qty: 12 on 11/06/2023 by Viki Mendoza MD PhD at [facility] [employer] 73-2412 / / [employer] Sternalock Prabhakar 2.4mm 14mm Self Drill Lock Sternum Cancellous 73-2414 - [id number] Implanted:Qty: 8 on 11/06/2023 by Viki Mendoza MD PhD at [facility] [employer] 73-2414 / / [employer] Sternalock Prabhakar 2.4mm 16mm Self Drill Lock Sternum Cancellous 73-2416 - [id number] Implanted:Qty: 6 on 11/06/2023 by Viki Mendoza MD PhD at [facility] [employer] 73-2416 / / [employer] Sternalock Prabhakar 2.7mm 12mm Self Drill Lock Sternum Cancellous [id number] - [id number] Implanted:Qty: 3 on 11/06/2023 by Viki Mendoza MD PhD at [facility] [employer] 73-2712 / / [employer] Sternalock Prabhakar 6 Hole Sternum Hexagon Plate Bone Primary Closure Sp-2890 - [id number] Implanted:Qty: 1 on 11/06/2023 by Viki Mendoza MD PhD at [facility] N/A: Sternum [employer] SP-2890 / / [employer] Sternalock Prabhakar 4 Hole 2 Side Low Profile Sternum 100d L Plate 73-7303 - [id number] Implanted:Qty: 1 on 11/06/2023 by Viki Mendoza MD PhD at [facility] N/A: Sternum [employer] 73-2643 / / [employer] 2.4mm 14mm Self Drill Lock Rib Prebent Screw Bone Titanium 76-7315 - [id number] Implanted:Qty: 1 on 04/03/2024 by Viki Mendoza MD PhD at [facility] N/A: Sternum [employer] 76-2602 / / [employer] Ribfix Prabhakar 2.4mm 10mm Self Tap Lock Screw Bone 76-6820 - [id number] Implanted:Qty: 8 on 04/03/2024 by Viki Mendoza MD PhD at [facility] N/A: Sternum [employer] 76-2410 / / [employer] Screw Bone St Locking Ribfix Prabhakar 2.4x12mm Ti 76-0472 - [id number] Implanted:Qty: 3 on 04/03/2024 by Viki Mendoza MD PhD at [facility] N/A: Sternum [employer] 76-2412 / / Insurance [facility] [place] [address] [address] [place] [address] Advance Directives For more information, please contact: [phone] * Full Code (Latest Code Status on File) Date Activated Date Inactivated Comments 04/03/2024 1:13 PM 04/05/2024 3:26 PM * Full Code Date Activated Date Inactivated Comments 11/07/2023 3:06 AM 11/14/2023 11:20 PM * Full Code Date Activated Date Inactivated Comments 01/26/2022 11:21 AM 01/31/2022 5:07 PM Care Teams Diversional Therapist'S Assistant Relationship Specialty Start Date End Date Candi Pereira PA PCP - General Physician Dental Practice Manager 02/18/21 Tom Mireles DO [address] [place] [address] Referring Physician Internal Medicine 07/07/21 Ramone Salinas MD [address] [facility] [address] [place] [address] Surgeon Cardiothoracic Surgery 11/14/23 Viki Mendoza MD PhD [address] [place] [address] Consulting Physician Plastic Surgery 11/14/23
== END 2024-12-14 09:28 | disposition home or self-care (01) ==
PROVIDERS: Emergency Provider Emergency Medicine; PCP Physician Assistant
DX: S52.571A Other intraarticular fracture of lower end of right radius, initial encounter for closed fracture (principal); I50.9 Heart failure, unspecified; I25.10 Atherosclerotic heart disease of native coronary artery without angina pectoris; E07.9 Disorder of thyroid, unspecified; K21.9 Gastro-esophageal reflux disease without esophagitis; K58.9 Irritable bowel syndrome, unspecified; F41.9 Anxiety disorder, unspecified; H59.023 Cataract (lens) fragments in eye following cataract surgery, bilateral; Z79.899 Other long term (current) drug therapy; X58.XXXA Exposure to other specified factors, initial encounter
CPT/HCPCS: 29125; 99282; A4565

== ENCOUNTER 2025-04-06 11:53 | Emergency (ER) | payer OTHER, SELFPAY ==
--- NOTE | ~2025-04-06 | CT_ITS ---
EXAMINATION: CT abdomen pelvis wo con DATE: 04/06/2025 13:42 INDICATION: Abdominal pain TECHNIQUE: Computed tomography (CT) of the abdomen and pelvis was performed without intravenous contrast. The dose-length product was 573.59 mGy-cm. Automated exposure control and iterative reconstruction technique were employed. COMPARISON: CT dated 03/01/2023 FINDINGS: There are groundglass opacities in the lung bases. Heart size normal. No significant pleural or pericardial effusion. There are cholecystectomy clips. The liver, spleen, pancreas, adrenal glands and kidneys are unremarkable. Nonobstructive bowel gas pattern. No abnormal pelvic masses or fluid collections. No evidence for diverticulitis or appendicitis. No significant vascular abnormality. No lymphadenopathy. There are changes of median sternotomy. IMPRESSION: 1. Bilateral groundglass opacities of the lung bases. Differential diagnosis includes pneumonia, hypersensitivity pneumonitis and edema. Reviewed, dictated and finalized at location [facility]. IMPRESSION: 1. Bilateral groundglass opacities of the lung bases. Differential diagnosis in cludes pneumonia, hypersensitivity pneumonitis and edema.
--- OUTSIDE RECORDS SUMMARY | 2025-04-06 11:56 | XMS_ITS | Clinical Summary ---
Author Organization [facility] Address [address] [place] [address] Care Team Providers Care Research Attorney Name Role Phone Candi Pereira PA-C Primary Care Provider Source Comments [facility],non-owned Affiliates and Associated Physician Practices is amultiple site organization consisting of ambulatory clinics and hospital sitesin [place], [place], [place] and [place]. This disclosure is being madepursuant to the Care Everywhere program and may not contain all information available regarding this patient. Last updated 18.[facility] Allergies Active Allergy Reactions Criticality Noted Date [...] (one) tablet by mouth once daily Active ondansetron, disintegrating, (Zofran ODT) 4 MG tablet Take 1 (one) tablet by mouth every 6 hours as needed 04/05/20 24 Active HYDROcodone-bryan taminophen ([place]) 5-325 MG tablet Take 1 (one) tablet by mouth every 6 hours as needed pain 12/14/19 25 Active guanFACINE CR 24hr (Intuniv) 1 MG tablet Take 1 (one) tablet by mouth 02/28/20 25 Active FeroSul 325 (65 Fe) MG tablet Take 1 (one) tablet by mouth every 2 days Active Auvelity 45-105 MG TBCR TAKE 1 TABLET BY MOUTH TWICE DAILY DIRECTED 02/22/20 25 Active buPROPion XL 24hr (Wellbutrin-XL) 300 MG tablet Take 1 (one) tablet by mouth every morning 02/27/20 25 Active cephalexin (Keflex) 500 MG capsule Take 1 (one) capsule by mouth every 12 hours Active benzonatate (Tessalon) 200 MG capsule TAKE 1 CAPSULE BY MOUTH THREE TIMES DAILY NEEDED Active oseltamivir (Tamiflu) 75 MG capsule TAKE 1 CAPSULE BY MOUTH TWICE DAILY FOR 5 DAYS Active promethazine-DM syrup TAKE 5 ML BY MOUTH EVERY 4 TO 6 HOURS FOR 5 DAYS NEEDED Active pravastatin (Pravachol) 10 MG tablet Take 1 (one) tablet by mouth Active oxyCODONE, immediate release, (Roxicodone) 5 MG tablet TAKE 1 TABLET BY MOUTH EVERY 6 HOURS NEEDED FOR MODERATE TO SEVERE PAIN 04/05/20 24 Active Active Problems Problem Noted Date Diagnosed Date Anomalous origin of right coronary artery 2020 Decreased GFR 12/07/2020 Other specified hypothyroidism 12/07/2020 Depression 11/03/2020 Encounters Date Type Department Care Team Description 03/06/2025 2:00 PM CDT Office Visit [facility] - Ophthalmology [address] [place] [phone] Abisai Stoll MD Dry eyes (Primary Dx); Meibomian gland disease, unspecified laterality; Pseudophakia 03/06/2025 Travel 01/21/2025 Travel from Last 3 Months Family History Medical History Relation Name Comments [...] more drinks on one occasion? 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 Gender Identity Female 01/21/2024 12:00 PM CDT [...] 9:33 AM CDT Height 154.9 cm (5' 1) 12/19/2022 9:33 AM CDT Body Mass Index 32.12 12/19/2022 9:33 AM CDT Plan of Treatment Health Maintenance Due [...] of 3 - 19+ 3-dose series) 1987 PNEUMOCOCCAL VACCINE 50+ (1 of 1 - PCV) 2018 ZOSTER VACCINE (1 of 2) 2018 COVID-19 VACCINE (2023-2 5 season) 2024 INFLUENZA VACCINE (#1) 2025 05/12/2015 PAP SMEAR 09/13/2025 09/13/2022, 09/13/2022 DEPRESSION SCREENING Completed 03/06/2025 HIB VACCINE Aged Out No longer eligi ble based on patient's age to complete this topic HPV VACCINE Aged Out No longer eligi ble based on patient's age to complete this topic MENINGOCOCCAL (Group B) VACCINE SHARED DECISION-MAKING Aged Out No longer eligible based on patient's age to complete this topic MENINGOCOCCAL GROUPS A/C/Y/W VACCINE Aged Out No longer eligible b ased on patient's age to complete this topic Medical Devices Implanted Type Area Registered Nurse Cardiac Telemetry Device Identifier Shelf Expiration Date Model / Serial / Lot Tecnis Eyhance Iol Implanted:Qty: 1 on 11/28/2022 by Adolfo Costello MD at [facility] Right: Eye [employer] 02/26/2025 [id number] / [id number] / [id number] Tecnis Eyhance Iol +22.5d Implanted:Qty: 1 on 12/19/2022 by Adolfo Costello MD at [facility] Left: Eye [employer] 08/13/2025 [id number] / [id number] / [id number] Insurance MEDICAID - OUT OF FORMERLY [facility] Advance Directives * Full Code (Latest Code Status on File) Date Activated Date Inactivated Comments 01/20/2010 1:25 PM 01/21/2010 11:52 PM * Full Code Date Activated Date Inactivated Comments 01/19/2010 3:17 AM 01/20/2010 1:25 PM Care Teams Research Attorney Relationship Specialty Start Date End Date Candi Pereira PA-C [address] [place] [phone] PCP - General Physician Director Community Health Nursing 02/05/25
--- OUTSIDE RECORDS SUMMARY | 2025-04-06 11:56 | XMS_ITS | Clinical Summary ---
Author Organization [facility] Address [facility] [place] [address] Care Team Providers Care Rock Crusher Name Role Phone Candi Pereira PA-C Primary Care Provider [phone] Allergies Active Allergy Reactions Criticality Noted Date [...] Comments Blood Pressure 118/72 10/11/2021 2:16 PM SUSTAINABLE SYSTEMS ANALYST Pulse 98 10/11/2021 2:16 PM SUSTAINABLE SYSTEMS ANALYST Temperature 36.4 C (97.6 F) 10/11/2021 2:16 PM SUSTAINABLE SYSTEMS ANALYST Respiratory Rate 18 10/11/2021 2:16 PM SUSTAINABLE SYSTEMS ANALYST Oxygen Saturation 98% 10/11/2021 2:16 PM SUSTAINABLE SYSTEMS ANALYST Inhaled Oxygen Concentration - - Weight 76.7 kg (169 lb) 10/11/2021 2:16 PM SUSTAINABLE SYSTEMS ANALYST Height 154.9 cm (5' 1) 10/11/2021 2:16 PM SUSTAINABLE SYSTEMS ANALYST Body Mass Index 31.93 10/11/2021 2:16 PM SUSTAINABLE SYSTEMS ANALYST Plan of Treatment Health Maintenance Due Date [...] patient's age to complete this topic Insurance [facility] MEDICAID Care Teams Rock Crusher Relationship Specialty Start Date End Date Candi Pereira PA-C [address] [place] [address] PCP - General NURSE PRACTITIONER 06/07/21
--- OUTSIDE RECORDS SUMMARY | 2025-04-06 11:56 | XMS_ITS | Encounter Summary ---
Author Organization [facility] Address [address] [place] [address] Care Team Providers Care Lead Game Designer Name Role Phone Unknown, Provider Primary Care Provider Candi Donato PA-C Primary Care Provider Reason for Visit * Reason Onset Date Comments Nurse Only 06/13/2023 Encounter Details Date Type Department Care Team (Late st Contact Info) Description 06/13/2023 Telephone [facility] - Centralized Scheduling [address] [place] [address] Adolfo Costello MD [address] [facility] [address] [place] [address] Nurse Only Social History Tobacco [...] PM CDT Legal 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 Gender Identity Female 01/21/2024 12:00 PM CDT Sexual Orientation Straight 01/21/2024 12 :00 PM CDT documented as of this encounter Miscellaneous Notes * Telephone Encounter - Jelly Fletcher - 06/13/2023 1:05 PM CDT Pt calling to speak to office about disability pt stated paint mixer machine called her yesteday and she could not answer questions properly, pt is scheduled for 07/2023 documented in this encounter Plan of Treatment Not on file documented as of this encounter Visit Diagnoses Not on filedocumented in this encounter Care Teams Lead Game Designer Relationship Specialty Start Date End Date Unknown, Provider PCP - General 09/26/22 02/04/25 Candi Pereira PA-C [address] [place] [phone] PCP - General Physician Surgical Appliance Fitter 02/05/25 documented as of this encounter
--- OUTSIDE RECORDS SUMMARY | 2025-04-06 11:56 | XMS_ITS | Patient Health Record ---
Author Organization [facility] Address [address] [facility] [address] [place] [address] Care Team Providers Care Transport Aide Name Role Phone Shikha Diez Unavailable [phone] Reason For Referral No Information Medications Medication SIG (Take, Route, Frequency, Duration) Notes Start Date End Date Status Bisacodyl EC 5 MG Tablet Delayed Release Oral Activ e traZODone HCl 150 MG Tablet Oral Active DULoxetine HCl 20 MG Capsule Delayed Release Particles Oral Active guanFACINE HCl 1 MG Tablet Oral Active Tylenol 325 MG Tablet Oral Active Vitamin D3 Super Strength 50 MCG (1999) Capsule Oral Active Ondansetron 4 MG Tablet Disintegrating Oral Active EUTHYROX 137 MCG TABLET *Reorder from [employer] for eRx and Interaction Alerts* Active DULoxetine HCl 60 MG Capsule Delayed Release Particles Oral Active Famotidine 20 MG Tablet Oral Active Cyclobenzaprine HCl 10 MG Tablet Oral Active Vitamin B-12 1000 MCG Tablet Oral Active Ranitidine HCl 150 MG Tablet Oral Active Clobetasol Propionate 0.05 % Ointment External Active Levothyroxine Sodium 112 MCG Tablet Oral Active Voltaren 1% Gel Transdermal Ac tive Pravastatin Sodium 10 MG Tablet Oral Active Methocarbamol 750 MG Tablet Oral Active buPROPion HCl ER (XL) 300 MG Tablet Extended Release 24 Hour Oral Active buPROPion HCl ER (XL) 150 MG Tablet Extended Release 24 Hour Oral Active BISACODYL 5 MG TABLET *Reorder f rom [employer] Green Way[employer] for eRx and Interaction Alerts* Active Topiramate 100 MG Tablet Oral Active hydrOXYzine Pamoate 50 MG Capsule Oral Active Benzonatate 100 MG Capsule Oral Active Immunizations Vaccine Route Administration Date Status Comme nts Influenza virus vaccine, quadrivalent (IIV4), split virus, 0.25 mL dosage Unknown 05/12/2015 Administered Tdap Unknown 08/14/2012 Administered Tdap Unknown 01/22/2019 Administered Plan Of Treatment No Information
--- OUTSIDE RECORDS SUMMARY | 2025-04-06 11:56 | XMS_ITS | Encounter Summary ---
Author Organization [facility] Address [address] [place] [address] Phone Care Team Providers Care Mcat Instructor Name Role Phone Candi Pereira Primary Care Provider + Tom Mireles DO Unavailable [phone] Ramone Salinas MD Unavailable [phone] Viki Mendoza MD PhD Unavailable [phone] Encounter Details Date Type Department Care Team (Late st Contact Info) Description 08/22/2023 Orders Only [facility] [phone] Scanning, Provider Social History Tobacco Use Types Packs/Day Years Used Date Smoking Tobacco: Never Smokeless Tobacco: Never Social Connection and Isolation Panel Answer Date Recorded In a typical week, how many times do you talk on the phone with family, friends, or neighbors? More than three times a week 01/27/2022 How often do you get togethe r with friends or relatives? 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
--- OUTSIDE RECORDS SUMMARY | 2025-04-06 11:56 | XMS_ITS | Clinical Summary ---
Author Organization [facility] Address [address] [place] [address] Phone Care Team Providers Care Supervisor Tumblers Name Role Phone Unavailable Primary Care Provider [...] D 600-10 MG-MCG tablet Take by mouth in the morning. Active Brexpiprazole (Rexulti) 1 MG tablet Take [...] Active Problems Problem Noted Date Diagnosed Date Anemia in chronic kidney disease 12/20/2024 Vitamin D deficiency 12/20/2024 Iron deficiency anemia 12/20/2024 Hypotension 12/20/2024 Chronic kidney disease stage 3 01/10/2024 Encounters Date Type Department Care Team Description 03/25/2025 12:40 PM CDT Office Visit [facility] [address] [facility] [address] [place] [address] Pancho Samaniego MD Stage 3a chronic kidney disease (CMS-HCC) (Primary Dx) from Last 3 Months Family History Medical History Relation Comments Diabetes Father Hypertension Father Relation Status Comments Father Social History Tobacco Use Types Packs/Day Years Used Date Smoking Tobacco: Never Smokeless Tobacco: Never Tobacco Cessation:Counseling Given: Not Answered Alcohol Use Standard Drinks/Week Comments Never 0 (1 standard drink = 0.6 oz pur e alcohol) Sex and Gender Information Value Date Recorded Sex Assigned at Not on file Legal Sex Male 1:05 PM MST Gender Identity Not on file Sexual Orientation Not on file Last Filed Vital Signs Vital Sign Reading Time Taken Comments Blood Pressure 113/66 03/25/2025 12:39 PM CDT Pulse 87 03/25/2025 12:39 PM CDT Temperature - - Respiratory Rate - - Oxygen Saturation - - Inhaled Oxygen Concentration - - Weight 83 kg (183 lb) 03/25/2025 12:39 PM CDT Height 154.9 cm (5' 1) 03/25/2025 12:39 PM CDT Body Mass Index 34.58 03/25/2025 12:39 PM CDT Plan of Treatment Upcoming Encounters Date Type Department Care Team ([facility] Contact Info) Description 07/01/2025 11:40 AM RETURN AGENT Office Visit [facility] [address] [facility] [address] [place] [address] Pancho Samaniego MD [address] [place] [phone] Health Maintenance Due Date Last Done Comments Pneumococcal PPSV23 Highest Risk Adult (1 of 3 - PCV13 ) 1989 Influenza Vaccine (#1) 2025 Insurance PM INTERFACED INSURANCE
[2025-04-06 11:57] VITALS: BP 103/62; PULSE 78; RESP 19; TEMP 36.8; O2SAT 100
--- OUTSIDE RECORDS SUMMARY | 2025-04-06 12:12 | XMS_ITS | Clinical Summary ---
Author Organization [facility] [address] Address [address] [place] [address] Care Team Providers Care Housing Manager Name Role Phone Candi Pereira Primary Care Provider + Tom Mireles DO Unavailable [phone] Ramone Salinas MD Unavailable [phone] Viki Mendoza MD PhD Unavailable Allergies [...] 1 tablet (112 mcg total) by mouth veneer department manager before breakfast 10/03/19 23 Active pravastatin (PRAVACHOL) [...] UE PT/OT rec rehab - [facility] in [place] has accepted pending insurance authorization Spoke to [...] with Dr Salinas and Dr Mendoza Monitor MAIRNA drain output Sternal precautions Monitor post op [...] Cessation:Counseling Given: Not Answered Social Connection and Isolation Panel Answer Date Recorded In a typical week, how many times do you talk on the phone with family, friends, or neighbors? More than three times a week 01/27/2022 How often do you get togethe r with friends or relatives? 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 Gender Identity Not on file Sexual [...] 3:55 PM CDT Height 154.9 cm (5' 1) 04/03/2024 7:00 PM CDT Body Mass Index [...] - season) 2024 01/27/2021, 12/26/2020 Influenza Vaccine (#1) 2025 5, 06/10/2014, 06/10/2014, Additional history exists DTaP/Tdap/Td Vaccine (4 - Td or Tdap) 01/22/2029 01/22/2019, 10/02/2012, 08/14/2012 Pneumococcal vaccine <65 Aged Out No longer eligible based on patient's age to complete this topic Medical Devices Implanted Type Area Ostomy Rn Device Identifier Shelf Expiration Date Model / Serial / Lot [employer] Sternalock Prabhakar 8 Hole Sternum Plate Bone 2.4 Mm Screw 73-7253 - [id number] Implanted:Qty: 1 on 11/06/2023 by Viki Mendoza MD PhD at [facility] [employer] 73-2623 / / [employer] Plate Bone Sternalock 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 Sp-0175 - [id number] Implanted:Qty: 1 on 11/06/2023 by Viki Mendoza MD PhD at [facility] [employer] SP-3215 / / [employer] Sternalock Prabhakar 2.4mm 10mm Self Drill Lock Sternum Cancellous 73-7180 - [id number] Implanted:Qty: 1 on 11/06/2023 by Viki Mendoza MD PhD at [facility] [employer] 73-2410 / / [employer] Sternalock Prabhakar 2.4mm 12mm Self Drill Lock Sternum Cancellous 73-2412 - [id number] Implanted:Qty: 12 on 11/06/2023 by Viki Mendoza MD PhD at [facility] [employer] 73-2412 / / [employer] Sternalock Prabhakar 2.4mm 14mm Self Drill Lock Sternum Cancellous 73-2414 - [id number] Implanted:Qty: 8 on 11/06/2023 by Viki Mendoza MD PhD at [facility] [employer] 73-2414 / / [employer] Sternalock Prabhakar 2.4mm 16mm Self Drill Lock Sternum Cancellous 73-2416 - [id number] Implanted:Qty: 6 on 11/06/2023 by Viki Mendoza MD PhD at [facility] [employer] 73-2416 / / [employer] Sternalock Prabhakar 2.7mm 12mm Self Drill Lock Sternum Cancellous 73-3042 - [id number] Implanted:Qty: 3 on 11/06/2023 by Viki Mendoza MD PhD at [facility] [employer] 73-2712 / / [employer] Sternalock Prabhakar 6 Hole Sternum Hexagon Plate Bone Primary Closure Sp-2890 - [id number] Implanted:Qty: 1 on 11/06/2023 by Viki Mendoza MD PhD at [facility] N/A: Sternum [employer] SP-2890 / / [employer] Sternalock Prabhakar 4 Hole 2 Side Low Profile Sternum 100d L Plate 73-9623 - [id number] Implanted:Qty: 1 on 11/06/2023 by Viki Mendoza MD PhD at [facility] N/A: Sternum [employer] 73-2643 / / [employer] 2.4mm 14mm Self Drill Lock Rib Prebent Screw Bone Titanium 76-2462 - [id number] Implanted:Qty: 1 on 04/03/2024 by Viki Mendoza MD PhD at [facility] N/A: Sternum [employer] 76-2602 / / [employer] Ribfix Prabhakar 2.4mm 10mm Self Tap Lock Screw Bone 76-2410 - [id number] Implanted:Qty: 8 on 04/03/2024 by Viki Mendoza MD PhD at [facility] N/A: Sternum [employer] 76-2410 / / [employer] Screw Bone St Locking Ribfix Prabhakar 2.4x12mm 76-2412 - [id number] Implanted:Qty: 3 on 04/03/2024 by Viki Mendoza MD PhD at [facility] N/A: Sternum [employer] 76-2203 / / Insurance [facility] [employer] [place] Advance Directives For more information, please contact: [phone] * Full Code (Latest Code Status on File) Date Activated Date Inactivated Comments 04/03/2024 1:13 PM 04/05/2024 3:26 PM * Full Code Date Activated Date Inactivated Comments 11/07/2023 3:06 AM 11/14/2023 11:20 PM * Full Code Date Activated Date Inactivated Comments 01/26/2022 11:21 AM 01/31/2022 5:07 PM Care Teams Housing Manager Relationship Specialty Start Date End Date Candi Pereira PA PCP - General Physician Night Time Nanny 02/18/21 Tom Mireles DO [address] [place] [address] Referring Physician Internal Medicine 07/07/21 Ramone Salinas MD [address] [place] [address] Surgeon Cardiothoracic Surgery 11/14/23 Viki Mendoza MD PhD [address] [place] [address] Consulting Physician Plastic Surgery 11/14/23
[2025-04-06 12:57] LABS: Hematocrit 46.3 % (37.0-47.0); Hemoglobin 15.0 g/dL (12.0-15.0); Immature Granulocyte Percent A 0.5 % (0-0.5); Lymphocytes Absolute Auto 2.32 K/mm3 (0.9-3.2); Mean Corpuscular HGB Conc 32.4 g/dl (32-36); Mean Corpuscular Hemoglobin 30.5 pg (26-34); Mean Corpuscular Volume 94.3 fl (80-100); Nucleated Red Blood Cells Absolute Auto 0.000 K/mm3 (0.0-0.012); Nucleated Red Blood Cells Perc 0.0 % (0.0-0.2); Platelet Count Result 279 k/mm3 (150-375); Red Blood Count 4.91 M/mm3 (4.2-5.4); White Blood Count 7.4 K/mm3 (4.5-10.0)
[2025-04-06 13:22] LABS: Alanine Aminotransferase 25 U/L (6-35); Albumin Level 4.1 g/dL (3.5-5.1); Alkaline Phosphatase 84 U/L (38-126); Anion Gap 7 mmol/L (4-12); Aspartate Amino Transferase 30 U/L (14-36); Bilirubin,Total 0.6 mg/dL (0.2-1.3); Blood Urea Nitrogen 15 mg/dL (7-17); Calcium 9.0 mg/dL (8.4-10.2); Carbon Dioxide 22 mmol/L (22-30); Chloride 111 mmol/L (98-107); Estimated CRCL calculation 39 ml/min; Estimated Glomerular Filt Rate 39; Glucose 87 mg/dL (65-110); Lipase 41 U/L (23-300); Magnesium 2.4 mg/dL (1.6-2.3); Potassium 4.0 mmol/L (3.4-5.0); Sodium 140 mmol/L (137-145); Total Protein 7.1 g/dL (6.3-8.2)
[2025-04-06 14:31] LABS: Add Urine Microscopic? YES; Appearance Urine Cloudy (Clear); Glucose Urine UA 3+ mg/dL (Negative); Leukocyte Esterase Ur Negative LEU/UL (Negative); Nitrate Urine Negative (Negative); Non Pathogenic Casts 0-2; Specific Grav Ur 1.018 (1.001-1.035)
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
== END 2025-04-06 15:02 | disposition home or self-care (01) ==
PROVIDERS: Emergency Provider Emergency Medicine; PCP Physician Assistant
DX: J18.9 Pneumonia, unspecified organism (principal); R10.9 Unspecified abdominal pain; I50.9 Heart failure, unspecified; I25.10 Atherosclerotic heart disease of native coronary artery without angina pectoris; E07.9 Disorder of thyroid, unspecified; K21.9 Gastro-esophageal reflux disease without esophagitis; K58.9 Irritable bowel syndrome, unspecified; F41.9 Anxiety disorder, unspecified; Z79.899 Other long term (current) drug therapy
CPT/HCPCS: 36415; 74176; 80053; 81001; 83605; 83690; 83735; 85025; 99284